=== PATIENT | female | born 1940 | race Caucasian/White ===

== ENCOUNTER → 2017-05-25 | Outpatient (CLI) | payer MEDICARE, OTHER ==
[~2017-05-25] MED LIST: CALC600T10 PO; DEXA4TAB PO; LEVE500 PO; PROT40TA PO; VITA2000 PO
--- NOTE | 2017-05-25 12:38 | RADRPT ---
EXAM DATE/TIME: 05/25/2017 12:24 [facility] COMPARISON: No previous studies available for comparison. INDICATIONS : Evaluate for pneumonia, pneumothorax, or communicable disease. Pre op for frontal lobe mass removal. MEDICAL HISTORY : Hypothyroidism. Osteoarthritis. SURGICAL HISTORY : Tonsillectomy. Appendectomy. Cholecystectomy. Hysterectomy. ENCOUNTER: Initial ACUITY: 1 day PAIN SCORE: 0/10 LOCATION: chest FINDINGS: PA and lateral views of the chest demonstrate the lungs to be symmetrically aerated without evidence of mass, infiltrate or effusion. The cardiomediastinal contours are unremarkable. Osseous structure s are intact. CONCLUSION: No acute disease. Jagdish Castillo MD on May 25, 2017 at 12:34 Board Certified Radiologist. This report was verified electronically.
[2017-05-25 13:03] LABS: BASOPHIL # 0.1 TH/MM3 (0-0.2); BASOPHIL % 0.7 % (0.0-2.0); EOSINOPHIL # 0.1 TH/MM3 (0-0.4); EOSINOPHIL % 1.6 % (0.0-4.0); HEMATOCRIT 42.7 % (35.0-46.0); HEMO FLAGS DIFF FINAL; LYMPH % 44.3 % (9.0-44.0); LYMPHOCYTE # 3.8 TH/MM3 (1.0-4.8); MEAN CELL VOLUME 86.2 FL (80.0-100.0); MEAN CORPUSCULAR HGB CONC 33.6 % (32.0-36.0); MONO % 6.8 % (0.0-8.0); NEUT % 46.6 % (16.0-70.0); PLATELET COUNT 194 TH/MM3 (150-450); RED BLOOD COUNT 4.95 MIL/MM3 (4.00-5.30); RED CELL DISTRIBUTION WIDTH 13.5 % (11.6-17.2); WHITE BLOOD COUNT 8.5 TH/MM3 (4.0-11.0)
[2017-05-25 13:10] LABS: BACTERIA, URINE OCC /hpf; BLOOD, URINE NEG (NEG); COMMENT (UR) CULT NOT INDICATED; CULTURE IF INDICATED CULT NOT INDICATED; GLUCOSE,URINE NEG (NEG); KETONE, URINE NEG (NEG); NITRITE,URINE NEG (NEG); PH, URINE 7.5 (5.0-8.5); SQUAMOUS EPITHELIAL CELL URINE <1 /hpf (0-5); URINE COLOR YELLOW (YELLW/STRAW)
[2017-05-25 13:15] LABS: APTT (PATIENT) 25.4 SEC (24.3-30.1); INTERNATIONAL NORMALIZED RATIO 0.9 RATIO; PROTHROMBIN TIME - PATIENT 10.2 SEC (9.8-11.6)
[2017-05-25 13:30] LABS: ANION GAP 7 MEQ/L (5-15); AST (GOT) 13 U/L (15-37); BICARBONATE 31.4 MEQ/L (21.0-32.0); BLOOD UREA NITROGEN 12 MG/DL (7-18); CHLORIDE 102 MEQ/L (98-107); GLOMERULAR FILTRATION RATE 84 ML/MIN (>89); GLUCOSE,FASTING 93 MG/DL (74-99); SODIUM (NA) 140 MEQ/L (136-145)
[2017-05-25 13:31] LABS: ALT (GPT) 16 U/L (10-53)
[2017-05-25 13:33] LABS: ALKALINE PHOSPHATASE 53 U/L (45-117); TOTAL BILIRUBIN ADULT 0.9 MG/DL (0.2-1.0)
== END ==
LOC: CPRE 11:02
PROVIDERS: ATTEND Neurological Surgery
DX: Z01.810 Encounter for preprocedural cardiovascular examination (principal); Z01.812 Encounter for preprocedural laboratory examination; Z01.818 Encounter for other preprocedural examination; D49.6 Neoplasm of unspecified behavior of brain; Z79.01 Long term (current) use of anticoagulants
CPT/HCPCS: 36415; 71020; 80053; 81001; 85025; 85610; 85730

== ENCOUNTER 2017-06-04 05:28 | Inpatient (IN) | payer MEDICARE, OTHER ==
[~2017-06-04] VITALS: Ht 167.6 cm; Wt 74.1 kg
[2017-06-04] MEDS ORDERED: CHLORHEXIDINE GLUCONATE 2 % 1 PACK (2 CLOTHS) TOPICAL PRN (06:15)
[2017-06-04] MEDS ORDERED: VANCOMYCIN HCL 1000 MG ON-CALL/NS 250 ML IV SCH ×2 (06:15)
[2017-06-04] MEDS ORDERED: METOPROLOL TARTRATE 25 MG TAB PO PRN (06:15)
[2017-06-04] MEDS ORDERED: POVIDONE IODINE 5% (ANTISEPSIS KIT) 4 APPLICATIONS EACH NARE PRN (06:15)
[2017-06-04] MEDS ORDERED: INSULIN HUMAN REGULAR 1,000 UNITS/10 ML VIAL SQ PRN (06:15)
[2017-06-04] MEDS ORDERED: LACTATED RINGER'S 1000 ML IV PRN (06:15)
[2017-06-04] MEDS ORDERED: SODIUM CHLOR 0.9% 1000 ML INJ 1,000 ML IV SCH (06:15)
[2017-06-04] MEDS ORDERED: SODIUM CHLORID 0.9% 500 ML IV PRN (06:15)
[2017-06-04] MEDS ORDERED: THROMBIN (TOPICAL) 5,000 UNIT VIAL ONE (06:59)
[2017-06-04] MEDS ORDERED: GELFOAM SIZE 100 ONE (06:59)
[2017-06-04] MEDS ORDERED: BUPIVACAINE/EPINEPHRINE 0.5% 50 ML VIAL ONE (06:59)
[2017-06-04] MEDS ORDERED: GENTAMICIN SULFATE 80 MG/2 ML VIAL ONE ×2 (07:00→08:33)
[2017-06-04] MEDS ORDERED: MANNITOL INJ 0 ML ONE (07:00)
[2017-06-04] MEDS ORDERED: levETIRAcetam 500 MG/5 ML VIAL IV ONE (07:06)
[2017-06-04] MEDS ORDERED: MANNITOL INJ 50 ML ONE (07:06)
[2017-06-04] MEDS ORDERED: PROPOFOL 200 MG/20 ML AMP ONE ×2 (08:55→10:12)
[2017-06-04] MEDS ORDERED: DEXAMETHASONE SOD PHOS 4 MG/ML VIAL ONE (09:35)
[2017-06-04] MEDS ORDERED: SUGAMMADEX SODIUM 200 MG/2 ML VIAL IV PUSH ONE ×2 (10:06)
[2017-06-04] MEDS ORDERED: CODEINE SULFATE 30 MG TAB PO PRN (10:30)
[2017-06-04] MEDS ORDERED: MAGNESIUM HYDROXIDE SUSP 30 ML CUP PO PRN (10:30)
[2017-06-04] MEDS ORDERED: MENTHOL LOZENGE BUCCAL PRN (10:30)
[2017-06-04] MEDS ORDERED: LABETALOL HCL 100 MG/20 ML VIAL IV PUSH PRN (10:30)
[2017-06-04] MEDS ORDERED: POTASSIUM CHLOR 20 MEQ PREMIX 100 ML IV PRN (10:30)
[2017-06-04] MEDS ORDERED: CALCIUM GLUCONATE INJ 1 GM in SODIUM CHLORIDE 0.9% INJ 100 ML IV PRN (10:30)
[2017-06-04] MEDS ORDERED: niCARdipine INJ 25 MG in SODIUM CHLOR 0.9% 250 ML INJ 240 ML IV PRN (10:30)
[2017-06-04] MEDS ORDERED: RESP: ALBUTEROL 2.5 MG/3 ML NEB (PRN) NEB (10:30)
[2017-06-04] MEDS ORDERED: LORazepam 2 MG/ML VIAL IV PUSH PRN (10:30)
[2017-06-04] MEDS ORDERED: ONDANSETRON HCL 4 MG/2 ML VIAL IV PUSH PRN (10:30)
[2017-06-04] MEDS ORDERED: ALUMINUM/MAGNESIUM/SIMETH 30 ML CUP PO PRN (10:30)
[2017-06-04] MEDS ORDERED: MAGNESIUM SULFATE INJ 2 GM in SODIUM CHLORIDE 0.9% INJ 100 ML IV PRN (10:30)
[2017-06-04] MEDS ORDERED: MORPHINE SULFATE 4 MG/ML INJ IV PUSH PRN (10:30)
[2017-06-04] MEDS ORDERED: METOCLOPRAMIDE HCL 10 MG/2 ML VIAL IVS PRN (10:30)
[2017-06-04] MEDS ORDERED: SODIUM CHLORIDE 0.9% FLUSH 10 ML FLUSH IV FLUSH PRN (10:30)
[2017-06-04] MEDS ORDERED: CODEINE SULFATE 15 MG TAB PO PRN (10:30)
[2017-06-04] MEDS ORDERED: cloNIDine HCL 0.1 MG TAB PO PRN (10:30)
--- NOTE | 2017-06-04 10:36 | PD.OP ---
Lo Denis, Operative Report Date of Surgery: Jun 04, 2017 Preoperative Diagnosis: Right frontotemporal parietal lobe mass Postoperative Diagnosis: High-grade glioma Procedure: Right frontotemporal parietal craniotomy for neoplasm resection; BrainLab stereotactic navigation; microsurgical technique Anesthesia: Gen. endotracheal by Taco Cardenas Surgeon: Nabeel Guzman M.D. Manager Drilling(s): Sandy Caraballo Operation and Findings: Following initiation of general endotracheal anesthesia the patient had invasive lines and Adler catheter in place along with sequential compression device. A gram of vancomycin and Keppra 500 mg as well as 10 mg Decadron was administered intravenously and she was positioned supine with the right shoulder elevated on a roll and head turned to the left side and secured in the [place] 3 pin headrest. The BrainLab navigation system was then registered with external landmarks and good accuracy confirmed. A right linear frontoparietal temporal incision area made after head shaved and prepped with ChloraPrep and sterilely draped in the usual sterile fashion. Incision was then made after infiltrating the scalp was 0.5% Marcaine with epinephrine solution a skin incision made and Gaye clips were used at the scalp edges for hemostasis and the flap retracted with Weitlaner retractors. Right temporalis muscle and fascia was also incised and detached from the temporal bone and retracted. With an automated radiation protection specialist temporal bur hole made and then with the craniotome the bone flap was elevated. The dura opened in a cruciate format and bone holes placed in the craniotomy edges with 4-0 Nurolon dural tacking stitches for hemostasis. Further dissection was undertaken using microtechnique with microscope medication. A corticectomy about 2 cm was in the suprerior temporal lobe identified at the anterior border of the mass which was localized with the navigation system also. Less than 2 cm from the cortical surface on indistinct border mass was evident and resection of this mass was undertaken using microtechnique microscope magnification along with the BrainLab navigation guidance. There was no distinct border between the brain and the mass and was very infiltrative in nature. Initial debulking undertaken in the middle where their was grayish in coloration and necrotic as well as cystic components and subsequent circumferential dissection although more medially because of this mass being on the internal capsule a very aggressive gross total resection could not be achieved but close to 80-90% of the mass was resected. Fresh frozen specimen sent was consistent with glioma and rest of the specimens were sent for permanent pathology sections although most of the mass was suctioned out. Bipolar cautery used for hemostasis in the resection bed which was then lined with Surgicel and no bleeding was encountered at this point. Cavity was filled with saline solution and the dura approximately using 4 Nurolon sutures with a central dural tacking stitch. Bone flap approximated using TransMedics mini plates and bur hole covers. The area was then copiously irrigated. The temporalis fascia was approximated and using 2-0 Vicryl sutures and the galea reapproximated using 3-0 Vicryl interrupted sutures and final scalp closure was with lili. The Jones head was then removed and a sterile pressing dressing applied. There were no intraoperative complications and all sponge and needle count was correct at the end of the procedure. Estimated blood loss about 50 cc. Patient was extubated and taken to the recovery room. Nabeel Guzman MD Jun 04, 2017 10:36
[2017-06-04] MEDS ORDERED: DO NOT ADM ANY ANTICOAGULANT DRUGS PRN (10:59)
[2017-06-04] MEDS ORDERED: ceFAZolin INJ 1,000 MG VIAL ONE (11:35)
[2017-06-04] MEDS ORDERED: SODIUM CHLORIDE 0.9% INJ 100 ML ONE (11:35)
[2017-06-04] MEDS: NS + KCL 20 MEQ INJ 1,000 ML IV SCH ×2 (11:35→21:34)
[2017-06-04 11:52] LABS: HEMATOCRIT 40.4 % (35.0-46.0); MEAN CELL VOLUME 85.3 FL (80.0-100.0); MEAN CORPUSCULAR HEMOGLOBIN 29.1 PG (27.0-34.0); MEAN CORPUSCULAR HGB CONC 34.1 % (32.0-36.0); PLATELET COUNT 160 TH/MM3 (150-450); RED BLOOD COUNT 4.74 MIL/MM3 (4.00-5.30); RED CELL DISTRIBUTION WIDTH 13.7 % (11.6-17.2); REVIEW FLAG FINAL; WHITE BLOOD COUNT 8.7 TH/MM3 (4.0-11.0)
[2017-06-04] MEDS ORDERED: GLYCOPYRROLATE 0.2 MG/ML VIAL ONE (12:06)
--- NOTE | 2017-06-04 12:12 | EKG ---
Date Performed: 06/04/2017 Time Performed: 06:45:03 PTAGE: 76 years EKG: SINUS BRADYCARDIA MODERATE ST DEPRESSION ABNORMAL ECG NO PREVIOUS TRACING DOCTOR: Porter Pedro Interpretating Date/Time 06/04/2017 12:11:33
[2017-06-04 12:19] LABS: BICARBONATE 22.4 MEQ/L (21.0-32.0); MAGNESIUM 2.2 MG/DL (1.5-2.5); POTASSIUM 3.3 MEQ/L (3.5-5.1)
[2017-06-04 12:45] VITALS: BP 144/68; PULSE 81; RESP 22; TEMP 97.8; O2SAT 100
[2017-06-04 14:00] VITALS: PULSE 77
[2017-06-04 16:00] VITALS: BP 130/58; PULSE 65; RESP 14; TEMP 98.2; O2SAT 99
[2017-06-04] MEDS: DEXAMETHASONE SOD PHOS 4 MG/ML VIAL IV PUSH SCH ×2 (17:00→21:33)
[2017-06-04 18:00] VITALS: PULSE 58
[2017-06-04 20:00] VITALS: BP 142/64; PULSE 54; PULSE 57; RESP 18; TEMP 98; O2SAT 94
[2017-06-04] MEDS: SODIUM CHLORIDE 0.9% FLUSH 10 ML FLUSH IV FLUSH SCH (21:00)
[2017-06-04] MEDS ORDERED: ZOLPIDEM TARTRATE 5 MG TAB PO PRN (21:00)
[2017-06-04] MEDS: levETIRAcetam 500 MG TAB PO SCH (21:32)
[2017-06-04] MEDS: DOCUSATE SODIUM 100 MG CAP PO SCH (21:32)
[2017-06-04] MEDS: CALCIUM/VITAMIN D 250 MG/125 U TAB PO SCH (21:32)
[2017-06-04 22:00] VITALS: PULSE 59
[2017-06-05] VITALS (11 sets, daily range): BP systolic 124–145; BP diastolic 60–67; PULSE 50–61; RESP 19–24; TEMP 98.2–99.1; O2SAT 93–99
[2017-06-05] MEDS: DEXAMETHASONE SOD PHOS 4 MG/ML VIAL IV PUSH SCH ×4 (04:33→20:57)
[2017-06-05 05:03] LABS: BICARBONATE 24.7 MEQ/L (21.0-32.0); POTASSIUM 4.1 MEQ/L (3.5-5.1)
[2017-06-05] MEDS: CALCIUM/VITAMIN D 250 MG/125 U TAB PO SCH ×2 (08:57→20:46)
[2017-06-05] MEDS: CHOLECALCIFEROL (VIT D3) 1000 UNIT TAB PO SCH (08:57)
[2017-06-05] MEDS: DOCUSATE SODIUM 100 MG CAP PO SCH ×2 (08:57→20:46)
[2017-06-05] MEDS: levETIRAcetam 500 MG TAB PO SCH ×2 (08:57→20:46)
[2017-06-05] MEDS: PANTOPRAZOLE SOD 40 MG DELAYED RELEASE TAB PO SCH (08:57)
[2017-06-05] MEDS: SODIUM CHLORIDE 0.9% FLUSH 10 ML FLUSH IV FLUSH SCH ×2 (08:58→20:47)
--- NOTE | 2017-06-05 09:19 | HHI.NSPN ---
History Chief Complaint: mild TMJ discomfort s/p right crani for mass resection. Interval History 06/05/17: Pt awake and alert. Denies headache, has mild right TMJ discomfort. No n/v. No weakness. Review of Systems General: Negative for: fever, chills, insomnia Respiratory: Negative for: shortness of breath, cough, sputum Cardiovascular: Negative for: chest pain Gastrointestinal: Negative for: nausea, vomitting, diarrhea, constipation Exam Results Vital Signs Date Time Temp Pulse Resp B/P (MAP) Pulse Ox O2 Delivery O2 Flow Rate FiO2 06/05/17 08:00 99.1 52 19 145/67 (93) 94 06/05/17 07:00 Room Air 06/04/17 12:45 2.00 Intake and Output 06/05/17 06/05/17 06/06/17 08:00 16:00 00:00 Intake Total 500 ml Output Total 2000 ml Balance -1500 ml Physical Examination Resp: CTA bilaterally Heart: NSR no murmurs Abd: Soft positive bs Skin: No cyanosis or erythema. Incision clean and dry healing well. Muscle: Moves all 4 extremities with good strength. Neuro: Pt awake and alert. Follows commands well. Speech clear and appropriate. Pupils 3mm bilaterally. Face symmetric. Lab, Micro, Other Results Laboratory Tests Test 06/04/17 11:10 06/05/17 04:20 White Blood Count 8.7 TH/MM3 Red Blood Count 4.74 MIL/MM3 Hemoglobin 13.8 GM/DL Hematocrit 40.4 % Mean Corpuscular Volume 85.3 FL Mean Corpuscular Hemoglobin 29.1 PG Mean Corpuscular Hemoglobin Concent 34.1 % Red Cell Distribution Width 13.7 % Platelet Count 160 TH/MM3 Mean Platelet Volume 9.6 FL Blood Urea Nitrogen 20 MG/DL 16 MG/DL Creatinine 0.49 MG/DL 0.61 MG/DL Random Glucose 123 MG/DL 131 MG/DL Calcium Level 7.8 MG/DL 8.2 MG/DL Magnesium Level 2.2 MG/DL Sodium Level 137 MEQ/L 137 MEQ/L Potassium Level 3.3 MEQ/L 4.1 MEQ/L Chloride Level 105 MEQ/L 105 MEQ/L Carbon Dioxide Level 22.4 MEQ/L 24.7 MEQ/L Anion Gap 10 MEQ/L 7 MEQ/L Estimat Glomerular Filtration Rate 122 ML/MIN 95 ML/MIN Medical Decision Making Impression and Plan A: 76 y/o FM s/p Right frontotemporal parietal craniotomy for neoplasm resection; [facility] Imaging stereotactic navigation; microsurgical technique on . P: Continue to monitor neuro exam PT advance activity. Anurag Montemayor Jun 05, 2017 9:19 am
[2017-06-05] MEDS: NS + KCL 20 MEQ INJ 1,000 ML IV SCH (09:48)
[2017-06-05] MEDS ORDERED: GADODIAMIDE PF 287 MG/ML 5 ML VIAL (for RAD MRI) IV PUSH ONE (10:47)
--- NOTE | 2017-06-05 11:36 | RADRPT ---
EXAM DATE/TIME: 06/05/2017 10:31 [facility] COMPARISON: No previous studies available for comparison. INDICATIONS : Mass. Post resection for neoplasm. CONTRAST: 14 cc Omniscan (gadodiamide) IV MEDICAL HISTORY : Spinal stenosis. SURGICAL HISTORY : Tonsillectomy. Craniotomy. Appendectomy. ENCOUNTER: Initial ACUITY: 2 day PAIN SCORE: 0/10 LOCATION: HEAD TECHNIQUE: Multiplanar, multisequence MRI of the brain was performed both prior to and following the administrat ion of paramagnetic contrast. FINDINGS: No prior neuroimaging studies are available. Right parietal craniotomy with a rim-enhancing lesion i n the mid convexity right temporal parietal lobe measuring 3.4 x 2.7 cm. There is an internal area o f enhancing nodularity along the anterolateral portion which measures 12 mm in size. There is absent signal along the fracture extending from the lateral margin of the mass to the dura. There is 4 mm midline shift towards the left. Moderate surrounding edema in the right temporal and parietal white matter. There is a small area of restricted diffusion about the posterior margin of the edema which measures 1.9 x 1.0 cm, characteristic of a focal infarct posterior to the surgical bed. No evidence of acute blood products. The left hemisphere is grossly intact. Posterior fossa structures are grossly intact. No gross abno rmality of the paranasal sinuses or orbits. The pituitary gland is normal in size. CONCLUSION: Post surgical changes in the right temporal parietal region. Residual peripheral ring enhancing mass with enhancing internal nodule. There is 4 mm midline shift towards the left. Los Navarro MD on June 05, 2017 at 11:30 Board Certified Radiologist. This report was verified electronically.
[2017-06-06] VITALS (9 sets, daily range): BP systolic 109–149; BP diastolic 57–90; PULSE 49–61; RESP 15–20; TEMP 97.7–98.3; O2SAT 93–98
[2017-06-06] MEDS: DEXAMETHASONE SOD PHOS 4 MG/ML VIAL IV PUSH SCH ×4 (03:03→23:04)
[2017-06-06] MEDS: levETIRAcetam 500 MG TAB PO SCH ×2 (08:56→23:04)
[2017-06-06] MEDS: CALCIUM/VITAMIN D 250 MG/125 U TAB PO SCH ×2 (08:57→23:04)
[2017-06-06] MEDS: PANTOPRAZOLE SOD 40 MG DELAYED RELEASE TAB PO SCH (08:57)
[2017-06-06] MEDS: CHOLECALCIFEROL (VIT D3) 1000 UNIT TAB PO SCH (08:57)
[2017-06-06] MEDS: SODIUM CHLORIDE 0.9% FLUSH 10 ML FLUSH IV FLUSH SCH ×2 (08:57→23:05)
[2017-06-06] MEDS: DOCUSATE SODIUM 100 MG CAP PO SCH ×2 (08:57→23:03)
--- NOTE | 2017-06-06 09:13 | HHI.NSPN ---
(Anurag Montemayor) History Chief Complaint: mild TMJ discomfort s/p right crani for mass resection. (Anurag Montemayor) Interval History 06/05/17: Pt awake and alert. Denies headache, has mild right TMJ discomfort. No n/v. No weakness. 06/06/17: Pt awake and alert. Denies headache. No n/v. Follows commands well. Speech clear and appropriate. (Anurag Montemayor) Review of Systems General: Negative for: fever, chills, insomnia Respiratory: Negative for: shortness of breath, cough, sputum Cardiovascular: Negative for: chest pain Gastrointestinal: Negative for: nausea, vomitting, diarrhea, constipation ( Anurag Montemayor) Exam Results Vital Signs Date Time Temp Pulse Resp B/P (MAP) Pulse Ox O2 Delivery O2 Flow Rate FiO2 06/06/17 06:00 55 06/06/17 04:00 98.1 17 142/67 (92) 93 06/05/17 19:00 Room Air 06/04/17 12:45 2.00 Intake and Output 06/06/17 06/06/17 06/07/17 08:00 16:00 00:00 Intake Total 400 ml Output Total 1500 ml Balance -1100 ml (Anurag Montemayor) Physical Examination Resp: CTA bilaterally Heart: NSR no murmurs Abd: Soft positive bs Skin: No cyanosis or erythema. Incision clean and dry healing well. Muscle: Moves all 4 extremities with good strength. Neuro: Pt awake and alert. Follows commands well. Speech clear and appropriate. Pupils 3mm bilaterally. Face symmetric. (Anurag Montemayor) Lab, Micro, Other Results Last Impressions Brain MRI 06/05/17 0600 Signed Impressions: Service Date/Time: Monday, June 05, 2017 10:31 - CONCLUSION: Post surgical changes in the right temporal parietal region. Residual peripheral ring enhancing mass with enhancing internal nodule. There is 4 mm midline shift towards the left. Los Navarro MD (Anurag Montemayor) Medical Decision Making Impression and Plan A: 76 y/o FM s/p Right frontotemporal parietal craniotomy for neoplasm resection; BrainLab stereotactic navigation; microsurgical technique on . Final Pathology reveals GBM. P: Continue to monitor neuro exam PT advance activity. Transfer to 5N. Consult radiation and medical oncology. Pts was not in the room this morning and therefore a discussion about the pathology was not done yet since I feel he should be present. (Anurag Montemayor) Attending Statement The exam, history, and the medical decision-making described in the above note were completed with the assistance of the mid-level provider. I reviewed and agree with the findings presented. I attest that I had a [id number] encounter with the patient on the same day, and personally performed and documented my assessment and findings in the medical record. She is doing very well from a clinical standpoint and in good spirits despite being told that she has a glioblastoma multiforme. Postoperative MRI scan with resected the majority of the cavity and residual rim enhancement. We'll consult the radiation and medical oncology for further treatment. (Nabeel Guzman MD) Anurag Montemayor Jun 06, 2017 09:13 Nabeel Guzman MD Jun 06, 2017 18:22
--- NOTE | 2017-06-06 15:40 | OTSOAPIP ---
TIME SESSION COMPLETED: PM TREATMENT TIME: 0 MINS. CHART REVIEWED. ATTEMPTED TO SEE FOR OT EVALUATION, HOWEVER IN PROCESS OF TRANSFERRING TO ANOTHER FLOOR. WILL FOLLOW. Therapist: SARAH SERVIN OT/[place] Signature on file
[2017-06-07 00:27] VITALS: BP 144/66; PULSE 51; RESP 17; TEMP 98; O2SAT 95
[2017-06-07] MEDS: DEXAMETHASONE SOD PHOS 4 MG/ML VIAL IV PUSH SCH ×2 (03:22→13:39)
[2017-06-07 04:52] VITALS: BP 145/65; PULSE 52; RESP 17; TEMP 98; O2SAT 96
--- NOTE | 2017-06-07 07:04 | MB ---
cc: ANDREAS GUZMAN M.D. DATE OF CONSULTATION 06/06/[address] Guzman REASON FOR CONSULTATION Oncology consulted to render opinion regarding patient with glioblastoma. HISTORY OF PRESENT ILLNESS The patient is a very pleasant 76-year-old female with no significant past medical history who first experienced left facial weakness about two months ago. She stated that one day she had significant rhinorrhea and then she noted a left facial weakness. She went to see her primary physician and an MRI scan done was reportedly unremarkable. She has not had recurring symptoms, but recently had another repeat scan which showed a right brain mass. She was referred to see Dr. Guzman. She was admitted two days ago for surgical resection. She underwent a right frontal temporoparietal craniotomy. She was noted to have an infiltrative mass which was grossly resected. Pathology showed glioblastoma multiforme grade 4. The patient denies any fever, chills, or weight loss. She denies any headache. She denies any visual changes. Denies any change in her speech. Denies any chest pains, shortness of breath or cough. Denies any nausea, vomiting, diarrhea or abdominal pain. PAST MEDICAL HISTORY 1. Allergies, receiving periodic allergy shot. 2. Thyroid nodule PAST SURGICAL HISTORY 1. Tonsillectomy 2. Total hysterectomy 3. Appendectomy 4. Cholecystectomy FAMILY HISTORY One son and one daughter both healthy. She lives with her . SOCIAL HISTORY Denied tobacco or alcohol use. ALLERGIES Recorded in the chart. CURRENT MEDICATIONS 1. Vitamin D3 2. Protonix 3. Keppra 4. Calcium 5. Colace REVIEW OF SYSTEMS CONSTITUTIONAL: Negative. EYES: Negative. ENT: Negative. CARDIOVASCULAR: Denies chest pressure or palpitations/ RESPIRATORY: Denies shortness of breath or cough. GI: Negative. : Negative. MUSCULOSKELETAL: Negative. HEMATOLOGY: Negative. ENDOCRINE: Negative. NEUROLOGIC: As above. PSYCHIATRIC: Negative. DERMATOLOGY: Negative. PHYSICAL EXAMINATION VITALS: Temperature 98.3, blood pressure 130/65, O2 saturation 98%. GENERAL: She is alert and oriented x3 in no acute distress. HEENT: Right sided craniotomy scar noted. No bleeding. Pupils equal round and reactive to light. Oropharynx, dry mucosa. NECK: No thyromegaly. No palpable masses. LYMPHATICS: No palpable cervical, supraclavicular, axillary or inguinal lymph nodes. CARDIOVASCULAR: Regular S1-S2 normal. LUNGS: Clear to auscultation bilaterally. No wheezing or rhonchi. ABDOMEN: Soft and nontender. I could not palpate the liver or spleen. EXTREMITIES: No cyanosis, clubbing or edema. SKIN: No rash or petechiae. NEUROLOGIC: Exam nonfocal. LABORATORY DATA Reviewed ASSESSMENT 1. Glioblastoma multiforme grade 4. She experienced left facial weakness and found to have a brain mass subsequently. She underwent craniotomy on May 15. There was an infiltrative mass noted, about 80-90% gross resection was achieved. Postoperative MRI showed residual peripheral ringed enhancing mass with enhancing internal nodule. There was a 4 mm midline shift towards the left noted. Pathology showed a glioblastoma multiforme. Discussed pathology with the patient. She has a good performance status. I am going to have pathology do a MGMT methylation study. She is going to need radiation with concurrent Temodar. Dr. Waddell has been consulted. 2. Thyroid nodule followed by endocrinology. 3. History of multiple allergies. PLAN 1. Discussion with the patient as above. 2. Await radiation oncology evaluation. 3. The patient is going to need consolidation radiation with concurrent Temodar. 4. We will have pathology do a MGMT methylation study. Thank you Dr. Guzman for asking us see this patient. MD LARRY Wyatt/FILIBERTO /7:10 PM /6:52 AM [facility]
[2017-06-07 07:36] VITALS: BP 146/69; PULSE 51; RESP 20; TEMP 98.4; O2SAT 95
[2017-06-07] MEDS: SODIUM CHLORIDE 0.9% FLUSH 10 ML FLUSH IV FLUSH SCH (09:00)
[2017-06-07] MEDS: DOCUSATE SODIUM 100 MG CAP PO SCH (09:48)
[2017-06-07] MEDS: levETIRAcetam 500 MG TAB PO SCH (09:49)
[2017-06-07] MEDS: PANTOPRAZOLE SOD 40 MG DELAYED RELEASE TAB PO SCH (09:49)
[2017-06-07] MEDS: CHOLECALCIFEROL (VIT D3) 1000 UNIT TAB PO SCH (09:49)
[2017-06-07] MEDS: CALCIUM/VITAMIN D 250 MG/125 U TAB PO SCH (09:49)
--- NOTE | 2017-06-07 10:23 | HHI.NSPN ---
(Anurag Montemayor) History Chief Complaint: mild TMJ discomfort s/p right crani for mass resection. (Anurag Montemayor) Interval History 06/05/17: Pt awake and alert. Denies headache, has mild right TMJ discomfort. No n/v. No weakness. 06/06/17: Pt awake and alert. Denies headache. No n/v. Follows commands well. Speech clear and appropriate. 06/07/17: pt awake and alert. Denies headache. States TMJ area pain resolved. No n/v. (Anurag Montemayor) Review of Systems General: Negative for: fever, chills, insomnia Respiratory: Negative for: shortness of breath, cough, sputum Cardiovascular: Negative for: chest pain Gastrointestinal: Negative for: nausea, vomitting, diarrhea, constipation ( Anurag Montemayor) Exam Results Vital Signs Date Time Temp Pulse Resp B/P (MAP) Pulse Ox O2 Delivery O2 Flow Rate FiO2 06/07/17 07:36 98.4 51 20 146/69 (94) 95 06/06/17 07:00 Room Air 06/04/17 12:45 2.00 Intake and Output 06/07/17 06/07/17 06/08/17 08:00 16:00 00:00 Intake Total 240 ml Balance 240 ml (Anurag Montemayor) Physical Examination Resp: CTA bilaterally Heart: NSR no murmurs Abd: Soft positive bs Skin: No cyanosis or erythema. Incision clean and dry healing well. Muscle: Moves all 4 extremities with good strength. Neuro: Pt awake and alert. Follows commands well. Speech clear and appropriate. Pupils 3mm bilaterally. Face symmetric. (Anurag Montemayor) Lab, Micro, Other Results Last Impressions Brain MRI 06/05/17 0600 Signed Impressions: Service Date/Time: Monday, June 05, 2017 10:31 - CONCLUSION: Post surgical changes in the right temporal parietal region. Residual peripheral ring enhancing mass with enhancing internal nodule. There is 4 mm midline shift towards the left. Los Navarro MD (Anurag Montemayor) Medical Decision Making Impression and Plan A: 76 y/o FM s/p Right frontotemporal parietal craniotomy for neoplasm resection; BrainLab stereotactic navigation; microsurgical technique on . Final Pathology reveals GBM. P: Continue to monitor neuro exam PT advance activity. D/C planning (Anurag Montemayor) Attending Statement The exam, history, and the medical decision-making described in the above note were completed with the assistance of the mid-level provider. I reviewed and agree with the findings presented. I attest that I had a [id number] encounter with the patient on the same day, and personally performed and documented my assessment and findings in the medical record. Discussed with patient and her and she is requesting discharge home with home therapy. Scheduled for follow-up next week with me for staple removal as well as radiation and medical oncology. (Nabeel Guzman MD) Anurag Montemayor Jun 07, 2017 10:23 Nabeel Guzman MD Jun 07, 2017 15:22
[2017-06-07 11:44] VITALS: BP 114/56; PULSE 57; RESP 20; TEMP 97.7; O2SAT 96
[2017-06-07] MEDS ORDERED: CODE15 PO (12:15)
--- NOTE | 2017-06-07 12:42 | HHI.FF ---
Face to Face Verification Diagnosis: (1) Glioblastoma multiforme Physical Therapy Order: Evaluate and Treat, Improve ambulation, Strength and gait training Home Health Nursing Order: Wound care and dressing changes Nursing assessment with vital signs I have seen patient Alpa Newman on 06/07/17. My clinical findings support the need for the requested home health care services because: Deconditioned w/ increased weakness Impaired cognition/judgement High risk of falls I certify that my clinical findings support that this patient is homebound because: Unsteady gait/balance Unable to use public transportation Anurag Montemayor Jun 07, 2017 12:42 pm
[2017-06-07] MEDS ORDERED: BISACODYL 10 MG SUPP RECTAL ONE (13:45)
--- NOTE | 2017-06-07 16:54 | PD.ONC.PN ---
Subjective Subjective Remarks Late entry. Feeling well. No headache or visual changes. Objective Data Date Time Temp Pulse Resp B/P (MAP) Pulse Ox O2 Delivery O2 Flow Rate FiO2 06/07/17 11:44 97.7 57 20 114/56 (75) 96 06/07/17 07:36 98.4 51 20 146/69 (94) 95 06/07/17 04:52 98.0 52 17 145/65 (91) 96 06/07/17 00:27 98.0 51 17 144/66 (92) 95 06/06/17 20:12 98.3 53 17 146/66 (92) 95 06/07/17 06/07/17 06/07/17 07:00 15:00 23:00 Intake Total 240 ml Balance 240 ml Result Diagram: 06/04/17 1110 06/05/17 0420 Objective Remarks GENERAL: Well-nourished, well-developed patient. SKIN: Warm and dry. HEAD: Normocephalic. Craniotomy site no bleeding. EYES: No scleral icterus. No injection or drainage. NECK: Supple, trachea midline. No JVD or lymphadenopathy. LYMPHATIC: No adenopathy. CARDIOVASCULAR: Regular rate and rhythm without murmurs. RESPIRATORY: Breath sounds equal bilaterally. No accessory muscle use. GASTROINTESTINAL: Abdomen soft, non-tender, nondistended. EXTREMITIES: No cyanosis, or edema. MUSCULOSKELETAL: Adequate muscle tone. NEUROLOGICAL: No obvious focal deficit. Awake, alert, and oriented x3. PSYCHIATRIC: Appropriate mood and affect; insight and judgment normal. Assessment/Plan Assessment 1. Glioblastoma multiforme grade 4. She experienced left facial weakness and found to have a brain mass subsequently. She underwent craniotomy on May 15. There was an infiltrative mass noted, about 80-90% gross resection was achieved. Postoperative MRI showed residual peripheral ringed enhancing mass with enhancing internal nodule. There was a 4 mm midline shift towards the left noted. Pathology showed a glioblastoma multiforme. Discussed pathology with the patient. She has a good performance status. I am going to have pathology do a MGMT methylation study. She is going to need radiation with concurrent Temodar. Dr. Waddell has been consulted. Plan PLAN 1. Discussion with the patient as above. 2. Await radiation oncology evaluation. 3. The patient is going to need consolidation radiation with concurrent Temodar. 4. We will have pathology do a MGMT methylation study. 5. F/u oncology clinic after d/c. Osvaldo Frank MD Jun 07, 2017 16:54
--- NOTE | 2017-06-08 22:14 | RC ---
cc: KEVIN WADDELL ROHIT K. M.D. DODD, PAUL M. M.D. HOLE, SUSAN DO DATE OF SERVICE 06/07/17 Ms. Newman is a 76-year-old female I am asked to see by Dr. Guzman. A copy of this evaluation will be forwarded to Dr. Guzman to aid in the medical decision making process. PRIMARY CARE PHYSICIAN Dr. Lo Denis OTHER PHYSICIANS Dr. Tony Phipps HISTORY Ms. Newman is a 76-year-old female who presented from Dr. Denis's primary care office noted to have facial asymmetry. She underwent imaging at [facility] in [facility], noted to have a right frontoparietal mass consistent with the primary brain tumor. She did undergo maximal safe resection demonstrates glioblastoma multiforme, grade 4/4 high-grade glioma. She is recovering well. She is coherent, feeling good. She underwent postoperative MRI demonstrating postsurgical changes, small post-treatment or residual ___ noted. We discussed with her treatment considerations. We discussed definitive adjuvant treatment. We discussed radiation therapy, concurrent temozolomide. We could consider hypofractionated course, 15-day fraction due to her age. She does have good performance status. KPS essentially 90 or greater. Over 50%, approximately 20 to 25 minute face to face encounter involved treatment considerations. Will make an appointment to see her next week on an outpatient basis. We will also make the patient appointment to have her see Dr. Tony Phipps, medical oncologist, next week as well. Kevin Waddell MD Radiation Oncologist B[facility]/EO /2:13 PM /10:04 PM
== END 2017-06-07 15:48 | disposition home health service (06) | DRG 27 ==
LOC: HSDI 05:28 → N03B 12:36 → N05B 06-06 10:54
PROVIDERS: ADMIT Neurological Surgery; ATTEND Neurological Surgery
PROC: 8E09XBZ Computer Assisted Procedure of Head and Neck Region (ICD-10-PCS; 2017-06-04)
PROC: 00B70ZZ Excision of Cerebral Hemisphere, Open Approach (ICD-10-PCS; principal; 2017-06-04 08:30)
DX: C71.3 Malignant neoplasm of parietal lobe (principal); E04.1 Nontoxic single thyroid nodule; Z88.5 Allergy status to narcotic agent; Z91.012 Allergy to eggs
CPT/HCPCS: 70553; 80048; 83735; 85027; 86850; 86900; 86901; 86920; 88307; 88331; 93005; 94150; A9579; J0690; J1100; J1580; J1953; J2150; J3480; J7120

== ENCOUNTER 2017-11-06 18:12 | Inpatient (IN) | payer MEDICARE, OTHER ==
[~2017-11-06] VITALS: Ht 167.6 cm; Wt 76.5 kg
[~2017-11-06 18:12] MED LIST changes: +CODE15 PO; +PRAD150C PO
[2017-11-06 18:28] VITALS: BP 145/69; PULSE 90; RESP 16; O2SAT 95
[2017-11-06] MEDS ORDERED: BUME2TAB PO (18:39)
[2017-11-06] MEDS ORDERED: ONDA8TAB7 PO (18:39)
[2017-11-06] MEDS ORDERED: POTA-163 PO ×2 (18:39→20:12)
[2017-11-06] MEDS ORDERED: METH1CAP41 PO (18:39)
--- NOTE | 2017-11-06 19:36 | PD ---
HPI Chief Complaint: General Weakness Time Seen by Provider: 19:05 Travel History International Travel<30 days: No Contact w/Intl Traveler<30days: No Traveled to known affect area: No History of Present Illness HPI The patient is a 77 year old female who presents to the [facility] emergency department with a history of increased weakness that is progressed over the last 24 hours. The patient is currently on chemotherapy. She completed her second round of a double dose of chemotherapy by Dr. Bates for a glioblastoma on Sunday. Her reports that over the last week she has had a diminished appetite, however she has not had any vomiting or diarrhea. Reports that he has no home health or rehabilitation coming out to his house at this time. He reports that he manages his on his own. He reports that normally he is able to assist her to the bathroom, however over the last 24 hours she is unable to stand due to lower extremity weakness. She has not had any fevers, cough or congestion. She has not had any change in her urinary frequency or odor to her urine. He reports that she has been on a diuretic up until 2 days ago, however she decided to discontinue it as she did not like it. She denies having any chest pain, chest pressure, or shortness of breath. The patient is awake on my arrival to the room. She is slow to answer questions , however she is oriented to person, place, however not time. Her reports that she does have difficulty remembering the day of the week and the month as she has been sleeping frequently due to fatigue on the chemotherapy. The patient last moved her bowels earlier today. There has not been any blood in her stool or black or tarry stools. She is currently anticoagulated on Pradaxa related to left lower extremity DVT. She denies having any increased lower extremity edema. She denies having any calf pain or erythema. Otherwise on review of systems, the patient denies having any headache, neck pain, abdominal pain, or other new neurologic symptoms. According to her she has unfortunately fallen approximately 3-4 times over the last 8 days. He denies her requiring any injuries related to the falls, and she reports no pain related to the falls. [facility] Past Medical History Narrative Medical The patient's past medical history is significant for having a glioblastoma status post craniotomy with surgical resection of 90%, followed by [address] york and chemotherapy currently underway with Dr. Frank, left lower extremity DVT, hypothyroid disorder, osteoarthritis. Cancer: Yes Cardiovascular Problems: No Chemotherapy: Yes Diabetes: No Endocrine: No Genitourinary: No Hiatal Hernia: No Immune Disorder: No Musculoskeletal: Yes (OA) Neurologic: Yes (SPINAL STENOSIS, MASS RIGHT FRONTAL LOBE) Psychiatric: No Reproductive: No Respiratory: No Thyroid Disease: Yes (NO MEDS) ?: Not Past Surgical History Narrative Surgical The patient's past surgical history is significant for cataract surgery, tonsillectomy, appendectomy, cholecystectomy, hysterectomy, craniotomy for the last stoma resection, cyst removal from the right arm. Abdominal Surgery: Yes (CHOLECYSTECTOMY) AICD: No Body Medical Devices: DENTAL IMPLANTS Cardiac Surgery: No Ear Surgery: No Endocrine Surgery: No Eye Surgery: Yes (BILATERAL CATARACTS) Genitourinary Surgery: No Gynecologic Surgery: Yes (TOTAL HYSTERECTOMY) Hysterectomy: Yes Joint Replacement: No Oral Surgery: Yes (TONSILLECTOMY, DENTAL IMPLANTS) Pacemaker: No Thoracic Surgery: No (CYST REMOVAL RIGHT FOREARM) Social History Narrative Social History The patient has been 57 years and has 2 children. Alcohol Use: No Tobacco Use: No Substance Use: No Allergies-Medications (Allergen,Severity, Reaction): Coded Allergies: Beef Containing Products (Verified Allergy, Unknown, 11/06/17) Bisphosphonates (Verified Allergy, Unknown, hypertension, nausea, 11/06/17) Egg Derived (Verified Allergy, Unknown, 11/06/17) Inhaled Anesthetics (Halogen Based) (Verified Allergy, Unknown, rash, ) [place]-Hfy-Aih Reductase Inhibitor (Verified Allergy, Unknown, trembles/ weakness, 11/06/17) acetaminophen (Verified Allergy, Unknown, 11/06/17) albuterol (Verified Allergy, Unknown, burning esophagus, anxious, rash, sleeplessness, 11/06/17) alendronate sodium (Verified Allergy, Unknown, chest pain, heart attack symptoms, 11/06/17) almond (Verified Allergy, Unknown, 11/06/17) barley (Verified Allergy, Unknown, 11/06/17) black walnut (Verified Allergy, Unknown, 11/06/17) corn (Verified Allergy, Unknown, 11/06/17) denosumab (Verified Allergy, Unknown, lethargy, 11/06/17) egg yolk (Verified Allergy, Unknown, 11/06/17) esomeprazole (Verified Allergy, Unknown, weakness, 11/06/17) green pepper (Verified Allergy, Unknown, 11/06/17) isoniazid (Verified Allergy, Unknown, 11/06/17) milk (Verified Allergy, Unknown, 11/06/17) cow milk omeprazole (Verified Allergy, Unknown, weakness, 11/06/17) oxaprozin (Verified Allergy, Unknown, 11/06/17) oxycodone (Verified Allergy, Unknown, 11/06/17) pantoprazole (Verified Allergy, Unknown, muscle spasms, weakness, 11/06/17) pollen extracts (Verified Allergy, Unknown, 11/06/17) potato (Verified Allergy, Unknown, 11/06/17) protease (Verified Allergy, Unknown, 11/06/17) barley tolmetin (Verified Allergy, Unknown, rash, 11/06/17) wheat (Verified Allergy, Unknown, 11/06/17) caffeine (Verified Adverse Reaction, Unknown, inflamation, 11/06/17) chocolate flavor (Verified Adverse Reaction, Unknown, inflammation, 11/06/17 ) fish oil (Verified Adverse Reaction, Unknown, trembles/weakness, 11/06/17) Reported Meds & Prescriptions Reported Meds & Active Scripts Active Protonix (Pantoprazole Sodium) 40 Mg Tab 40 Mg PO DAILY Reported Temozolomide 140 Mg Cap 280 Mg PO [id number] Calcium 500 +D (Calcium Carbonate-Cholecalciferol) 500-400 Mg-Unit Tab 1 Tab PO TID Levetiracetam 500 Mg Tab 500 Mg PO BID Pradaxa (Dabigatran) 150 Mg Cap 150 Mg PO DAILY Potassium Chloride ER (Potassium Chloride) 20 Meq Tab 20 Meq PO BID Bumetanide 2 Mg Tab 2 Mg PO DAILY Ondansetron (Ondansetron HCl) 8 Mg Tab 8 Mg PO Q8HR PRN Vitamin D3 (Cholecalciferol) 2,000 Unit Cap 2,000 Units PO DAILY Review of Systems Except as stated in HPI: all other systems reviewed are Neg General / Constitutional: No: Fever Eyes: No: Visual changes HENT: No: Headaches, Congestion Cardiovascular: No: Chest Pain or Discomfort Respiratory: No: Cough, Shortness of Breath Gastrointestinal: Positive: Loss of Appetite, No: Nausea, Vomiting, Diarrhea, Abdominal Pain, Indigestion Genitourinary: No: Dysuria Musculoskeletal: No: Pain Skin: No Rash Neurologic: Positive: Weakness (Lower extremity weakness, generalized weakness) , Change in Mentation, No: Focal Abnormalities, Slurred Speech, Sensory Disturbance Psychiatric: No: Depression Endocrine: No: Polydipsia Hematologic/Lymphatic: No: Easy Bruising Physical Exam Narrative General: The patient is a well-developed well-nourished female in no acute distress. Head and Neck exam: Head is normocephalic atraumatic. Eyes: EOMI, pupils are equal round and reactive to light. Nose: Midline septum with pink mucous membranes Mouth: Dentition unremarkable. Moist mucus membranes. Posterior oropharynx is not erythematous. No tonsillar hypertrophy. Uvula midline. Airway patent. Neck: No palpable lymphadenopathy. No nuchal rigidity. No thyromegaly. Cardiovascular: Regular rate and rhythm without murmurs, gallops, or rubs. Lungs: Clear to auscultation bilaterally. No wheezes, rhonchi, or rales. Abdomen: Soft, without tenderness to palpation in all 4 quadrants of the abdomen. No guarding, rebound, or rigidity. Normal bowel sounds are audible. No tenderness on palpation of McBurney's point. Extremities: No clubbing, cyanosis, or edema. 2+ pulses in all 4 extremities. No calf tenderness on palpation. Back: No costovertebral angle tenderness to palpation. Neurologic Exam: Cranial nerves 2-12 were intact on exam. Strength is 5/5 in all 4 extremities. No sensory deficits noted. The patient is oriented to person, place, situation , however not time. The patient is able to converse intelligibly, however the patient is slow to answer questions. The patient's reports that she has been slow with her speech over the last week. Skin Exam: No rash noted. Intact skin that is warm and dry. Data Data Last Documented VS Vital Signs Date Time Temp Pulse Resp B/P (MAP) Pulse Ox O2 Delivery O2 Flow Rate FiO2 11/06/17 21:05 81 14 123/53 (76) 96 Room Air 11/06/17 19:54 98.4 Orders Orders Electrocardiogram (11/06/17 19:26) Complete Blood Count With Diff (11/06/17 19:26) Comprehensive Metabolic Panel (4/3/18 19:26) Troponin I (11/06/17:) Prothrombin Time / Inr (Pt) (11/06/17) Act Partial Throm Time (Ptt) (11/06/17) Lipase (11/06/17) Urinalysis - C+S If Indicated (11/06/17) Magnesium (Mg) (11/06/17) Ammonia (11/06/17) Thyroid Stimulating Hormone (11/06/17) Chest, Single Ap (11/06/17) Ct Brain W/O Iv Contrast(Rout) (11/06/17) Iv Access Insert/Monitor (11/06/17) Ecg Monitoring (11/06/17) Oximetry (11/06/17) Sodium Chlor 0.9% 1000 Ml Inj (Ns 1000 M (11/06/17 19:45) Potassium Chloride (Kcl) (11/06/17 21:00) Urine Culture (11/06/17 20:00) Admit Order (Ed Use Only) (11/06/17 21:56) Labs Laboratory Tests Test 11/06/17 19:44 11/06/17 20:00 White Blood Count 5.6 TH/MM3 Red Blood Count 4.53 MIL/MM3 Hemoglobin 13.6 GM/DL Hematocrit 39.3 % Mean Corpuscular Volume 86.8 FL Mean Corpuscular Hemoglobin 30.1 PG Mean Corpuscular Hemoglobin Concent 34.7 % Red Cell Distribution Width 16.1 % Platelet Count 183 TH/MM3 Mean Platelet Volume 8.1 FL Neutrophils (%) (Auto) 48.8 % Lymphocytes (%) (Auto) 29.5 % Monocytes (%) (Auto) 15.0 % Eosinophils (%) (Auto) 5.9 % Basophils (%) (Auto) 0.8 % Neutrophils # (Auto) 2.7 TH/MM3 Lymphocytes # (Auto) 1.7 TH/MM3 Monocytes # (Auto) 0.8 TH/MM3 Eosinophils # (Auto) 0.3 TH/MM3 Basophils # (Auto) 0.0 TH/MM3 CBC Comment DIFF FINAL Differential Comment Prothrombin Time 12.8 SEC Prothromb Time International Ratio 1.3 RATIO Activated Partial Thromboplast Time 36.9 SEC Blood Urea Nitrogen 15 MG/DL Creatinine 1.06 MG/DL Random Glucose 139 MG/DL Total Protein 6.2 GM/DL Albumin 3.5 GM/DL Calcium Level 9.0 MG/DL Magnesium Level 2.2 MG/DL Alkaline Phosphatase 55 U/L Aspartate Amino Transf (AST/SGOT) 38 U/L Alanine Aminotransferase (ALT/SGPT) 40 U/L Total Bilirubin 1.4 MG/DL Sodium Level 136 MEQ/L Potassium Level 3.4 MEQ/L Chloride Level 99 MEQ/L Carbon Dioxide Level 29.4 MEQ/L Anion Gap 8 MEQ/L Estimat Glomerular Filtration Rate 50 ML/MIN Ammonia LESS THAN 10 MCMOL/L Troponin I LESS THAN 0.02 NG/ML Lipase 190 U/L Thyroid Stimulating Hormone 3rd Gen 0.369 uIU/ML Urine Color YELLOW Urine Turbidity HAZY Urine pH 5.5 Urine Specific [place] 1.013 Urine Protein TRACE mg/dL Urine Glucose (UA) NEG mg/dL Urine Ketones 10 mg/dL Urine Occult Blood SMALL Urine Nitrite POS Urine Bilirubin NEG Urine Urobilinogen LESS THAN 2.0 MG/DL Urine Leukocyte Esterase LARGE Urine RBC 5 /hpf Urine WBC 70 /hpf Urine WBC Clumps MANY Urine Squamous Epithelial Cells 10 /hpf Urine Bacteria MANY /hpf Urine Mucus FEW /lpf Microscopic Urinalysis Comment CULTURE INDICATED MDM Medical Decision Making Medical Screen Exam Complete: Yes Emergency Medical Condition: Yes Medical Record Reviewed: Yes Interpretation(s) Last Impressions Head CT 11/06/171925 Signed Impressions: Service Date/Time: Monday, November 06, 2017 20:53 - CONCLUSION: 1. Prior right craniotomy with encephalomalacia in the operative bed and some punctate calcifications. No current mass effect or shift. There is no recent infarct identified. Jagdish Castillo MD Chest X-Ray 11/06/171925 Signed Impressions: Service Date/Time: Monday, November 06, 2017 19:39 - CONCLUSION: 1. Elevated right hemidiaphragm. Basilar atelectasis. Jagdish Castillo MD Differential Diagnosis Encephalopathy, versus progression of intracranial tumor, versus edema related to intracranial mass, versus infectious process such as urinary tract infection , versus pneumonia, versus electrolyte derangements, versus dehydration Narrative Course During the course of the patient's emergency department visit, the patient's history, examination, and differential diagnosis were reviewed with the patient. The patient was placed on a secured entrance monitor with oximetry and frequent blood pressure monitoring. The patient had IV access obtained and blood work sent for analysis. The patient had a EKG done on arrival that shows a sinus rhythm heart rate of 82, QRS duration is 81 ms, QTC [address] segment elevation is noted. There is a tremulous baseline noted which could be affecting interpretation of the EKG. The patient was initially provided normal saline at 100 mL/h. The patient's laboratory studies were reviewed and remarkable for a white count of 5.6, hemoglobin 13.6, platelets 183 with 15 monocytes, CMP is remarkable for potassium 3.4, creatinine 1.06, glucose 139, total bilirubin 1.4, AST 38, ammonia level less than 10, troponin I less than 0.02, lipase 190, TSH 0.369. PT 12.8, PTT 36.9. Radiology studies were reviewed and remarkable for a chest x-ray that shows an elevated right hemidiaphragm, basilar atelectasis, no other acute abnormality. CT scan of the brain showed prior right craniotomy with encephalomalacia in the operative bed and some punctate calcifications, no current mass-effect or shift The patient's results were discussed with the patient, including the plan of care. I explained that further testing and/ or monitoring is indicated based on the patient's history, examination, and/ or laboratory findings. Therefore, I recommended admission for additional evaluation. The patient expressed understanding and was agreeable with this plan. The patient was admitted to the hospital in stable condition and sent to a bed under the care of the [facility] service. Physician Communication Physician Communication The patient's case including history, pertinent physical examination findings, and laboratory studies were discussed with Dr. Cage. It was agreed that the patient would be admitted to the [facility] service. Diagnosis Primary Impression: Generalized weakness Additional Impressions: Glioblastoma multiforme Urinary tract infection Qualified Codes: N39.0 - Urinary tract infection, site not specified; R31.9 - Hematuria, unspecified Admitting Information Admitting Physician Requests: Sara Martin MD Nov 06, 2017 19:36
[2017-11-06 19:54] VITALS: BP 135/60; PULSE 86; RESP 18; TEMP 98.4; O2SAT 97
[2017-11-06 19:55] VITALS: RESP 18; O2SAT 97
[2017-11-06 19:58] LABS: AUTOMATED NEUTROPHIL # 2.7 TH/MM3 (1.8-7.7); BASOPHIL % 0.8 % (0.0-2.0); EOSINOPHIL # 0.3 TH/MM3 (0-0.4); EOSINOPHIL % 5.9 % (0.0-4.0); HEMATOCRIT 39.3 % (35.0-46.0); HEMOGLOBIN 13.6 GM/DL (11.6-15.3); LYMPH % 29.5 % (9.0-44.0); LYMPHOCYTE # 1.7 TH/MM3 (1.0-4.8); MEAN CELL VOLUME 86.8 FL (80.0-100.0); MEAN CORPUSCULAR HEMOGLOBIN 30.1 PG (27.0-34.0); MEAN CORPUSCULAR HGB CONC 34.7 % (32.0-36.0); MEAN PLATELET VOLUME 8.1 FL (7.0-11.0); MONOCYTE # 0.8 TH/MM3 (0-0.9); NEUT % 48.8 % (16.0-70.0); PLATELET COUNT 183 TH/MM3 (150-450); RED BLOOD COUNT 4.53 MIL/MM3 (4.00-5.30); RED CELL DISTRIBUTION WIDTH 16.1 % (11.6-17.2); WHITE BLOOD COUNT 5.6 TH/MM3 (4.0-11.0)
[2017-11-06] MEDS ORDERED: CALC1TAB12 PO (20:12)
[2017-11-06] MEDS ORDERED: TEMO1CAP8 PO (20:12)
[2017-11-06] MEDS ORDERED: PRAD150C PO (20:12)
[2017-11-06] MEDS: SODIUM CHLOR 0.9% 1000 ML INJ 1,000 ML IV SCH (20:12)
[2017-11-06] MEDS ORDERED: LEVE500T8 PO (20:12)
[2017-11-06 20:15] LABS: ALBUMIN 3.5 GM/DL (3.4-5.0); AST (GOT) 38 U/L (15-37); BICARBONATE 29.4 MEQ/L (21.0-32.0); BLOOD UREA NITROGEN 15 MG/DL (7-18); CHLORIDE 99 MEQ/L (98-107); CREATININE 1.06 MG/DL (0.50-1.00); GLOMERULAR FILTRATION RATE 50 ML/MIN (>89); GLUCOSE,RANDOM 139 MG/DL (74-106); INTERNATIONAL NORMALIZED RATIO 1.3 RATIO; MAGNESIUM 2.2 MG/DL (1.5-2.5); PROTHROMBIN TIME - PATIENT 12.8 SEC (9.8-11.6); SODIUM (NA) 136 MEQ/L (136-145)
[2017-11-06 20:27] LABS: ALKALINE PHOSPHATASE 55 U/L (45-117); ALT (GPT) 40 U/L (10-53); TOTAL BILIRUBIN ADULT 1.4 MG/DL (0.2-1.0); TOTAL PROTEIN 6.2 GM/DL (6.4-8.2); TROPONIN I LESS THAN 0.02 NG/ML (0.02-0.05)
--- NOTE | 2017-11-06 20:29 | RADRPT ---
EXAM DATE/TIME: 11/06/2017 19:39 [facility] COMPARISON: No previous studies available for comparison. INDICATIONS : Altered mental status. MEDICAL HISTORY : Hypothyroidism. Osteoarthritis. SURGICAL HISTORY : Tonsillectomy. Appendectomy. Cholecystectomy. Hysterectomy. Craniotomy. ENCOUNTER: Initial ACUITY: 1 day PAIN SCORE: Non-responsive. LOCATION: Bilateral chest FINDINGS: A single view of the chest demonstrates mild basilar atelectasis. Elevated right hemidiaphragm. Tortu ous aorta. No pneumothorax. CONCLUSION: 1. Elevated right hemidiaphragm. Basilar atelectasis. Jagdish Castillo MD on November 06, 2017 at 20:27 Board Certified Radiologist. This report was verified electronically.
[2017-11-06 20:54] LABS: BACTERIA, URINE MANY /hpf; BILIRUBIN, URINE NEG (NEG); BLOOD, URINE SMALL (NEG); GLUCOSE,URINE NEG (NEG); KETONE, URINE 10 mg/dL (NEG); MUCUS URINE FEW /lpf (OCC); NITRITE,URINE POS (NEG); PH, URINE 5.5 (5.0-8.5); SQUAMOUS EPITHELIAL CELL URINE 10 /hpf (0-5); URINE COLOR YELLOW (YELLW/STRAW); URINE LEUKOCYTE ESTERASE LARGE (NEG); WHITE BLOOD CELL CLUMPS MANY
[2017-11-06] MEDS ORDERED: POTASSIUM CHLORIDE 10 MEQ CONTROLLED RELEASE TAB PO ONE (21:00)
[2017-11-06 21:05] VITALS: BP 123/53; PULSE 81; RESP 14; O2SAT 96
--- NOTE | 2017-11-06 21:30 | RADRPT ---
EXAM DATE/TIME: 11/06/2017 20:53 [facility] COMPARISON: No previous studies available for comparison. INDICATIONS : General malaise, altered mental status RADIATION DOSE: 35.99 CTDIvol (mGy) ; Patient motion MEDICAL HISTORY : Spinal stenosis. Hepatitis. Glioblastoma. Chemotherapy. SURGICAL HISTORY : Hysterectomy. Craniotomy.Tumor resection. ENCOUNTER: Initial ACUITY: 3 days PAIN SCALE: 0/10 LOCATION: cranial TECHNIQUE: Multiple contiguous axial images were obtained of the head. Using automated exposure control and adj ustment of the mA and/or kV according to patient size, radiation dose was kept as low as reasonably a chievable to obtain optimal diagnostic quality images. DICOM format image data is available electro nically for review and comparison. FINDINGS: There is a prior right-sided craniotomy with some encephalomalacia in the posterior right frontal lob e extending into the temporal region. Left hemisphere intact. No acute bony abnormalities. Sinuses ar e clear. CONCLUSION: 1. Prior right craniotomy with encephalomalacia in the operative bed and some punctate calcifications . No current mass effect or shift. There is no recent infarct identified. Jagdish Castillo MD on November 06, 2017 at 21:26 Board Certified Radiologist. This report was verified electronically.
[2017-11-06 22:32] VITALS: BP 111/56; PULSE 73; RESP 14; O2SAT 95
[2017-11-06] MEDS ORDERED: SENNOSIDES 8.6 MG TAB PO PRN (23:30)
[2017-11-06] MEDS ORDERED: MAGNESIUM HYDROXIDE SUSP 30 ML CUP PO PRN (23:30)
[2017-11-06] MEDS ORDERED: NALOXONE HCL 0.4 MG/ML AMP IV PUSH PRN (23:30)
[2017-11-06] MEDS ORDERED: ONDANSETRON HCL 4 MG/2 ML VIAL IVP PRN (23:30)
[2017-11-06] MEDS ORDERED: HEPARIN SODIUM - SQ 10,000 UNITS/ML VIAL SQ SCH (23:30)
[2017-11-06] MEDS ORDERED: BISACODYL 10 MG SUPP RECTAL PRN (23:30)
[2017-11-06] MEDS ORDERED: MORPHINE SULFATE 4 MG/ML INJ IV PUSH PRN (23:30)
[2017-11-06] MEDS ORDERED: SODIUM CHLORIDE 0.9% FLUSH 10 ML FLUSH IV FLUSH PRN (23:30)
[2017-11-06] MEDS ORDERED: LACTULOSE SYRUP 20 GM/30 ML CUP PO PRN (23:30)
[2017-11-07 03:21] VITALS: BP 136/64; PULSE 72; RESP 18; TEMP 98.1; O2SAT 96
--- NOTE | 2017-11-07 04:03 | HHI.HP ---
HPI Service [facility] Primary Care Physician Lo Denis DO Admission Diagnosis Generalized weakness, dehydration, h/o glioblastoma on chemotherapy Diagnoses: Travel History International Travel<30 Days: No Contact w/Intl Traveler <30 Da: No Traveled to Known Affected Are: No History of Present Illness 77-year-old female with a past medical history significant for glioblastoma and left lower extremity DVT anticoagulated on Pradaxa was brought to the emergency department by her for evaluation of progressive weakness over the last 24 hours. The patient is interviewed alone and states that she feels fine now. She is able to answer my questions slowly however cannot tell me exactly why she came to the emergency department. Per emergency room documentation, the patient's stated that she had a second round of double dose chemotherapy for her glioblastoma on Sunday. He reports that over the last week she has had a diminished appetite. Denies any vomiting or diarrhea. No chest pain or shortness of breath. No abdominal pain. Increasing weakness without lateralizing signs/symptoms. Review of Systems ROS Limitations: Clinical Condition Except as stated in HPI: all other systems reviewed are Neg Past Family Social History Past Medical History (Obtained from medical records) Glioblastoma Left lower extremity DVT Hypothyroidism Osteoarthritis Past Surgical History Cataracts Tonsillectomy Appendectomy Cholecystectomy Hysterectomy Craniotomy with surgical resection of glioblastoma Reported Medications Reported Meds & Active Scripts Active Protonix (Pantoprazole Sodium) 40 Mg Tab 40 Mg PO DAILY Reported Temozolomide 140 Mg Cap 280 Mg PO [id number] Calcium 500 +D (Calcium Carbonate-Cholecalciferol) 500-400 Mg-Unit Tab 1 Tab PO TID Levetiracetam 500 Mg Tab 500 Mg PO BID Pradaxa (Dabigatran) 150 Mg Cap 150 Mg PO DAILY Potassium Chloride ER (Potassium Chloride) 20 Meq Tab 20 Meq PO BID Bumetanide 2 Mg Tab 2 Mg PO DAILY Ondansetron (Ondansetron HCl) 8 Mg Tab 8 Mg PO Q8HR PRN Vitamin D3 (Cholecalciferol) 2,000 Unit Cap 2,000 Units PO DAILY Allergies: Coded Allergies: Beef Containing Products (Verified Allergy, Unknown, 11/06/17) Bisphosphonates (Verified Allergy, Unknown, hypertension, nausea, 11/06/17) Egg Derived (Verified Allergy, Unknown, 11/06/17) Inhaled Anesthetics (Halogen Based) (Verified Allergy, Unknown, rash, ) Ysdiyps-Cei-Vkj Reductase Inhibitor (Verified Allergy, Unknown, trembles/ weakness, 11/06/17) acetaminophen (Verified Allergy, Unknown, 11/06/17) albuterol (Verified Allergy, Unknown, burning esophagus, anxious, rash, sleeplessness, 11/06/17) alendronate sodium (Verified Allergy, Unknown, chest pain, heart attack symptoms, 11/06/17) almond (Verified Allergy, Unknown, 11/06/17) barley (Verified Allergy, Unknown, 11/06/17) black walnut (Verified Allergy, Unknown, 11/06/17) corn (Verified Allergy, Unknown, 11/06/17) denosumab (Verified Allergy, Unknown, lethargy, 11/06/17) egg yolk (Verified Allergy, Unknown, 11/06/17) esomeprazole (Verified Allergy, Unknown, weakness, 11/06/17) green pepper (Verified Allergy, Unknown, 11/06/17) isoniazid (Verified Allergy, Unknown, 11/06/17) milk (Verified Allergy, Unknown, 11/06/17) cow milk omeprazole (Verified Allergy, Unknown, weakness, 11/06/17) oxaprozin (Verified Allergy, Unknown, 11/06/17) oxycodone (Verified Allergy, Unknown, 11/06/17) pantoprazole (Verified Allergy, Unknown, muscle spasms, weakness, 11/06/17) pollen extracts (Verified Allergy, Unknown, 11/06/17) potato (Verified Allergy, Unknown, 11/06/17) protease (Verified Allergy, Unknown, 11/06/17) barley tolmetin (Verified Allergy, Unknown, rash, 11/06/17) wheat (Verified Allergy, Unknown, 11/06/17) caffeine (Verified Adverse Reaction, Unknown, inflamation, 11/06/17) chocolate flavor (Verified Adverse Reaction, Unknown, inflammation, 11/06/17 ) fish oil (Verified Adverse Reaction, Unknown, trembles/weakness, 11/06/17) Family History Negative for CAD/DM Social History Negative for alcohol, tobacco and illicit drugs Physical Exam Vital Signs Vital Signs Date Time Temp Pulse Resp B/P (MAP) Pulse Ox O2 Delivery O2 Flow Rate FiO2 11/07/17 03:21 98.1 72 18 136/64 (88) 96 11/06/17 23:54 11/06/17 22:32 73 14 111/56 (74) 95 Room Air 11/06/17 21:05 81 14 123/53 (76) 96 Room Air 11/06/17 19:55 18 97 Room Air 11/06/17 19:54 98.4 86 18 135/60 (85) 97 Room Air 11/06/17 18:31 96 Room Air 11/06/17 18:28 90 16 145/69 (94) 95 Physical Exam GENERAL: female lying in bed SKIN: No rashes, ecchymoses or lesions. Cool and dry. HEAD: Atraumatic. Normocephalic. No temporal or scalp tenderness. EYES: Pupils equal round and reactive. Extraocular motions intact. No scleral icterus. No injection or drainage. ENT: Nose without bleeding, purulent drainage or septal hematoma. Throat without erythema, tonsillar hypertrophy or exudate. Uvula midline. Airway patent. NECK: Trachea midline. No JVD or lymphadenopathy. Supple, nontender, no meningeal signs. CARDIOVASCULAR: Regular rate and rhythm without murmurs, gallops, or rubs. RESPIRATORY: Clear to auscultation. Breath sounds equal bilaterally. No wheezes , rales, or rhonchi. GASTROINTESTINAL: Abdomen soft, non-tender, nondistended. No hepato-splenomegaly , or palpable masses. No guarding. MUSCULOSKELETAL: Extremities without clubbing, cyanosis, or edema. No joint tenderness, effusion, or edema noted. No calf tenderness. NEUROLOGICAL: Awake and alert. Cranial nerves II through XII intact. Motor and sensory grossly within normal limits. Five out of 5 muscle strength in all muscle groups. Low speech. Laboratory Laboratory Tests Test 11/06/17 19:44 11/06/17 20:00 White Blood Count 5.6 Red Blood Count 4.53 Hemoglobin 13.6 Hematocrit 39.3 Mean Corpuscular Volume 86.8 Mean Corpuscular Hemoglobin 30.1 Mean Corpuscular Hemoglobin Concent 34.7 Red Cell Distribution Width 16.1 Platelet Count 183 Mean Platelet Volume 8.1 Neutrophils (%) (Auto) 48.8 Lymphocytes (%) (Auto) 29.5 Monocytes (%) (Auto) 15.0 Eosinophils (%) (Auto) 5.9 Basophils (%) (Auto) 0.8 Neutrophils # (Auto) 2.7 Lymphocytes # (Auto) 1.7 Monocytes # (Auto) 0.8 Eosinophils # (Auto) 0.3 Basophils # (Auto) 0.0 CBC Comment DIFF FINAL Differential Comment Prothrombin Time 12.8 Prothromb Time International Ratio 1.3 Activated Partial Thromboplast Time 36.9 Blood Urea Nitrogen 15 Creatinine 1.06 Random Glucose 139 Total Protein 6.2 Albumin 3.5 Calcium Level 9.0 Magnesium Level 2.2 Alkaline Phosphatase 55 Aspartate Amino Transf (AST/SGOT) 38 Alanine Aminotransferase (ALT/SGPT) 40 Total Bilirubin 1.4 Sodium Level 136 Potassium Level 3.4 Chloride Level 99 Carbon Dioxide Level 29.4 Anion Gap 8 Estimat Glomerular Filtration Rate 50 Ammonia LESS THAN 10 Troponin I LESS THAN 0.02 Lipase 190 Thyroid Stimulating Hormone 3rd Gen 0.369 Urine Color YELLOW Urine Turbidity HAZY Urine pH 5.5 Urine Specific [place] 1.013 Urine Protein TRACE Urine Glucose (UA) NEG Urine Ketones 10 Urine Occult Blood SMALL Urine Nitrite POS Urine Bilirubin NEG Urine Urobilinogen LESS THAN 2.0 Urine Leukocyte Esterase LARGE Urine RBC 5 Urine WBC 70 Urine WBC Clumps MANY Urine Squamous Epithelial Cells 10 Urine Bacteria MANY Urine Mucus FEW Microscopic Urinalysis Comment CULTURE INDICATED Date/Time Source Procedure Growth Status 11/06/17 20:00 Urine Clean Catch Urine Culture Pending Received Result Diagram: 11/06/17194311/06/171943 Caprini VTE Risk Assessment Caprini VTE Risk Assessment: Mod/High Risk (score >= 2) Caprini Risk Assessment Model Point Value = 1 Point Value = 2 Point Value = 3 Point Value = 5 Age 41-60 Minor surgery BMI > 25 kg/m2 Swollen legs Varicose veins or History of unexplained or recurrent spontaneous Oral contraceptives or hormone replacement Sepsis (< 1 month) Serious lung disease, including pneumonia (< 1 month) Abnormal pulmonary function Acute myocardial infarction Congestive heart failure (< 1 month) History of inflammatory bowel disease Medical patient at bed rest Age 61-74 Arthroscopic surgery Major open surgery (> 45 min) Laparoscopic surgery (> 45 min) Malignancy Confined to bed (> 72 hours) Immobilizing plaster cast Central venous access Age >= 75 History of VTE Family history of VTE Factor V Leiden Prothrombin [id number] Lupus anticoagulant Anticardiolipin antibodies Elevated serum homocysteine Heparin-induced thrombocytopenia Other congenital or acquired thrombophilia Stroke (< 1 month) Elective arthroplasty Hip, pelvis, or leg fracture Acute spinal cord injury (< 1 month) Prophylaxis Regimen Total Risk Factor Score Risk Level Prophylaxis Regimen 0-1 Low Early ambulation 2 Moderate Order ONE of the following: *Sequential Compression Device (SCD) *Heparin 5000 units SQ BID 3-4 Higher Order ONE of the following medications: *Heparin 5000 units SQ TID *Enoxaparin/Lovenox 40 mg SQ daily (WT < 150 kg, CrCl > 30 mL/min) *Enoxaparin/Lovenox 30 mg SQ daily (WT < 150 kg, CrCl > 10-29 mL/min) *Enoxaparin/Lovenox 30 mg SQ BID (WT < 150 kg, CrCl > 30 mL/min) AND/OR *Sequential Compression Device (SCD) 5 or more Highest Order ONE of the following medications: *Heparin 5000 units SQ TID (Preferred with Epidurals) *Enoxaparin/Lovenox 40 mg SQ daily (WT < 150 kg, CrCl > 30 mL/min) *Enoxaparin/Lovenox 30 mg SQ daily (WT < 150 kg, CrCl > 10-29 mL/min) *Enoxaparin/Lovenox 30 mg SQ BID (WT < 150 kg, CrCl > 30 mL/min) AND *Sequential Compression Device (SCD) Assessment and Plan Assessment and Plan Assessment/plan: 1. Progressive weakness Likely secondary to chemotherapy received last Sunday Oncology consulted, Dr. Frank, appreciate recommendations CT of the head shows prior right craniotomy without current mass effect or shift PT 2. Glioblastoma Continue Keppra for seizure prophylaxis Appreciate oncology input 3. Left lower extremity DVT Continue home Pradaxa 4. Urinary tract infection UA consistent with urinary tract infection despite 10 squamous epithelial cells Urine culture pending Rocephin FEN Regular diet Ns at 100 cc/hr Electrolytes: Status post oral potassium repletion, monitor BMP Jaylene Rosa MD Nov 07, 2017 04:03
[2017-11-07] MEDS: SODIUM CHLOR 0.9% 1000 ML INJ 1,000 ML IV SCH ×2 (04:45→17:30)
[2017-11-07] MEDS: cefTRIAXone INJ 1,000 MG in SODIUM CHLORIDE 0.9% INJ 100 ML IV SCH (04:45)
[2017-11-07 05:31] LABS: AUTOMATED NEUTROPHIL # 2.5 TH/MM3 (1.8-7.7); BASOPHIL % 0.8 % (0.0-2.0); EOSINOPHIL # 0.4 TH/MM3 (0-0.4); EOSINOPHIL % 7.3 % (0.0-4.0); HEMATOCRIT 37.2 % (35.0-46.0); HEMOGLOBIN 12.9 GM/DL (11.6-15.3); LYMPH % 27.5 % (9.0-44.0); LYMPHOCYTE # 1.4 TH/MM3 (1.0-4.8); MEAN CELL VOLUME 88.5 FL (80.0-100.0); MEAN CORPUSCULAR HEMOGLOBIN 30.7 PG (27.0-34.0); MEAN CORPUSCULAR HGB CONC 34.7 % (32.0-36.0); MEAN PLATELET VOLUME 8.6 FL (7.0-11.0); MONO % 16.1 % (0.0-8.0); MONOCYTE # 0.8 TH/MM3 (0-0.9); NEUT % 48.3 % (16.0-70.0); PLATELET COUNT 164 TH/MM3 (150-450); RED BLOOD COUNT 4.21 MIL/MM3 (4.00-5.30); RED CELL DISTRIBUTION WIDTH 16.1 % (11.6-17.2); WHITE BLOOD COUNT 5.3 TH/MM3 (4.0-11.0)
[2017-11-07 05:43] LABS: BICARBONATE 26.8 MEQ/L (21.0-32.0); CALCIUM 8.6 MG/DL (8.5-10.1); CREATININE 0.87 MG/DL (0.50-1.00)
[2017-11-07 07:29] VITALS: BP 138/63; PULSE 68; RESP 12; TEMP 98; O2SAT 96
--- NOTE | 2017-11-07 08:02 | EKG ---
Date Performed: 11/06/2017 Time Performed: 19:51:23 PTAGE: 77 years EKG: Sinus rhythm MODERATE ST DEPRESSION ABNORMAL ECG PREVIOUS TRACING : 06/04/2017 06.45 DOCTOR: Wolfgang Sutton Interpretating Date/Time 11/07/2017 08:01:12
[2017-11-07] MEDS: SODIUM CHLORIDE 0.9% FLUSH 10 ML FLUSH IV FLUSH SCH ×2 (09:00→21:54)
[2017-11-07] MEDS: BUMETANIDE 1 MG TAB PO SCH (10:08)
[2017-11-07] MEDS: DABIGATRAN ETEXILATE 150 MG CAP PO SCH (10:08)
[2017-11-07] MEDS: PANTOPRAZOLE SOD 40 MG DELAYED RELEASE TAB PO SCH (10:08)
[2017-11-07] MEDS: DOCUSATE SODIUM 50 MG/SENNA 8.6 MG TAB PO SCH ×2 (10:08→21:54)
[2017-11-07] MEDS: levETIRAcetam 500 MG TAB PO SCH ×2 (10:08→21:54)
--- NOTE | 2017-11-07 10:15 | MB ---
cc: Osvaldo Frank MD DATE: 11/07/2017 ATTENDING PHYSICIAN: Dr. Cage REASON FOR CONSULTATION: Oncology consulted to render an opinion regarding patient with a glioblastoma admitted with increased weakness. HISTORY OF PRESENT ILLNESS: The patient is a very pleasant 77-year-old female with a history of glioblastoma currently receiving consolidation Temodar, who presented to the hospital with a complaint of increased weakness. is not at the bedside at this time. The patient is a rather poor historian. She completed cycle 2 of consolidation Temodar last Sunday. Reportedly, she has decreased appetite over the last day, she has increased weakness and her had difficulty getting her out of bed. She has been sleeping more. She was told to come to the emergency room. Reportedly, she has fallen a few times over the last 1 week, but she denies any head trauma. She denies any fever or chills. She denies any headache. She denies any visual changes. She denies any focal weakness or numbness. She has no chest pain, shortness of breath or cough. Denies any nausea, vomiting, diarrhea or abdominal pain. No dysuria or hematuria. PAST MEDICAL HISTORY: 1. Glioblastoma multiforme. 2. Left lower extremity deep venous thrombosis. 3. Hypothyroidism. 4. Osteoarthritis. PAST SURGICAL HISTORY: 1. Right craniotomy. 2. Cataract surgery. 3. Appendectomy. 4. Cholecystectomy. 5. Total hysterectomy. 6. Tonsillectomy. FAMILY HISTORY: One son and a daughter both healthy. SOCIAL HISTORY: Lives with her . She denies any tobacco or alcohol use. ALLERGIES: MULTIPLE ALLERGIES DOCUMENTED IN HER CHART. CURRENT MEDICATIONS: 1. Miranda-Colace. 2. Bumex. 3. Pradaxa. 4. Keppra. 5. Protonix. 6. Ceftriaxone. REVIEW OF SYSTEMS: CONSTITUTIONAL: As above. EYES: Negative. ENT: Negative. CARDIOVASCULAR: Denied any chest pressure or palpitation. RESPIRATORY: Denied any shortness of breath or cough. GASTROINTESTINAL: Denies any nausea, vomiting, diarrhea or abdominal pain. GENITOURINARY: Denies dysuria or hematuria. MUSCULOSKELETAL: Negative. HEMATOLOGY: Negative. ENDOCRINE: Negative. DERMATOLOGY: Negative. PSYCHIATRIC: Negative. NEUROLOGIC: As above. PHYSICAL EXAMINATION: VITAL SIGNS: Temperature 98, blood pressure 138/63, O2 saturation 96 percent. GENERAL: She is awake. She is oriented to place, self and event. HEENT: Atraumatic, normocephalic. Pupils are equal, round, and reactive to light. Extraocular muscles intact. No scleral icterus. Oropharynx dry mucosa. No lesion, no thrush or mucositis. NECK: No thyromegaly. No palpable mass. LYMPHATIC: No palpable cervical, clavicular, axillary, or inguinal lymph nodes. CARDIOVASCULAR: Regular S1, S2. No murmur. LUNGS: Clear to auscultation bilaterally. No wheezing or rhonchi. ABDOMEN: Soft, nontender. Cannot palpate the liver or spleen. EXTREMITIES: No cyanosis or clubbing. She has trace ankle edema, no calf tenderness. SKIN: No rash or petechiae. NEUROLOGIC: No focal deficit. She has generalized weakness. LABORATORY DATA: CBC within normal limits. Creatinine of 0.87. ASSESSMENT: 1. Glioblastoma multiforme. She was diagnosed with a glioblastoma in May. She had a right craniotomy with resection of about 80% of the tumor. Postoperative MRI showed a residual enhancing lesion. The MGMT methylation was negative. She had concurrent radiation with Temodar which she completed around August. She just completed cycle 2 of consolidation Temodar last Sunday. Her recent MRI showed possible progression of the main mass, although cannot totally rule out radiation changes. She was also noted to have a satellite lesion adjacent to the main mass, which was stable on the last MRI. The patient currently is not on steroids. During this admission, she had a CT of the head which showed post-craniotomy changes and encephalomalacia, but no apparent acute changes. She has generalized weakness, but no focal deficit. The weakness may be due to dehydration and urinary tract infection, but cannot totally rule out progression of the glioblastoma. We will get another MRI for further evaluation. 2. Generalized weakness, which could be due to a urinary tract infection and dehydration. Creatinine was elevated when she first presented. Urinalysis was abnormal. Urine culture is still pending. She is afebrile. She has no leukocytosis. She was started on ceftriaxone. 3. History of left lower extremity deep venous thrombosis. She is on Pradaxa. No apparent recurrent clot. She has chronic bilateral lower extremity edema due to hypoalbuminemia. 4. Hypothyroidism. 5. Osteoarthritis. PLAN: 1. Get MRI of the brain with perfusion scan. 2. Continue Pradaxa. 3. Continue antibiotic per primary team pending a urine culture. Thank you Dr. Cage for asking me to see this patient. MD LARRY Wyatt/ROLAND , 09:24 AM , 10:14 AM [facility]
[2017-11-07] MEDS ORDERED: POTASSIUM CHLORIDE 20 MEQ CONTROLLED RELEASE TAB PO ONE (10:30)
[2017-11-07 11:23] VITALS: BP 118/56; PULSE 78; RESP 12; TEMP 98.3; O2SAT 95
[2017-11-07 12:54] LABS: ALBUMIN 3.2 GM/DL (3.4-5.0); DIRECT BILIRUBIN ADULT 0.3 MG/DL (0.0-0.2)
[2017-11-07 12:55] LABS: INDIRECT BILIRUBIN 0.9 MG/DL (0.0-0.8); TOTAL BILIRUBIN ADULT 1.2 MG/DL (0.2-1.0); TOTAL PROTEIN 5.7 GM/DL (6.4-8.2)
[2017-11-07] MEDS ORDERED: GADODIAMIDE PF 287 MG/ML 20 ML VIAL (for RAD MRI) IVCONTRAST ONE (14:10)
--- NOTE | 2017-11-07 14:31 | RADRPT ---
EXAM DATE/TIME: 11/07/2017 12:59 [facility] COMPARISON: MRI BRAIN W & W/O CONTRAST, June 05, 2017, 10:31. INDICATIONS : Altered mental status. Generalized weakness. CONTRAST: 20 cc Omniscan (gadodiamide) IV MEDICAL HISTORY : Hepatitis. Glioblastoma, radiation/chemo SURGICAL HISTORY : Cholecystectomy. Hysterectomy. Appendectomy. crainiotomy, tonsilectomy ENCOUNTER: Subsequent ACUITY: 3 day PAIN SCORE: 0/10 LOCATION: cranial TECHNIQUE: Multiplanar, multisequence MRI of the brain was performed both prior to and following the administrat ion of paramagnetic contrast. FINDINGS: The ring-enhancing lesion in the right mid convexity parietal lobe is slightly smaller than on prior examination measuring 2.8 x 2.9 cm (previously measured 3.4 x 3.3 cm. The pattern of peripheral ring enhancement is similar to prior. A new finding from the prior examination is linear enhancement andre ng the anterior and posterior margin of the biopsy tract extending to the dural surface. There is al so a new 7 mm ring-enhancing lesion adjacent to the dominant mass adjacent to the the superior latera l margin of the mass. The degree of surrounding vasogenic edema has decreased and there is less defo rmity of the body of the lateral ventricle; the body of the lateral ventricle has a normal configurat ion and the 3rd ventricle is in the midline, normal in size. There are no new areas of enhancement s een in the left hemisphere or infratentorial brain. CONCLUSION: The dominant mass in the right parietal lobe has decreased in size slightly, but there is evidence of recurrent tumor with enhancement along the biopsy tract and a new 7 mm enhancing nodule adjacent to the superior lateral margin of the residual mass. Decrease in the amount of surrounding edema when c ompared to May 2017. Los Navarro MD on November 07, 2017 at 14:23 Board Certified Radiologist. This report was verified electronically.
--- NOTE | 2017-11-07 14:45 | RADRPT ---
EXAM DATE/TIME: 11/07/2017 12:59 [facility] COMPARISON: MRI BRAIN W & W/O CONTRAST, November 07, 2017, 12:59. INDICATIONS : Altered mental status. Generalized weakness. CONTRAST: 20 cc Omniscan (gadodiamide) IV MEDICAL HISTORY : Hepatitis. Glioblastoma, radiation/chemo SURGICAL HISTORY : Cholecystectomy. Hysterectomy. Appendectomy. crainiotomy, tonsilectomy ENCOUNTER: Subsequent ACUITY: 3 day PAIN SCORE: 0/10 LOCATION: cranial TECHNIQUE: Whole brain MR perfusion was performed. Parametric maps generated included time to peak, mean transi t time, cerebral blood volume and cerebral blood flow. FINDINGS: The tumor cavity demonstrates no blood flow or blood volume does not there is some linear blood volum e about the right tumor cavity and in the enhancing nodule stopped there are no significant asymmetri es in transit time or time to peak between the left and right hemispheres. CONCLUSION: There is evidence of some blood volume in the new enhancing nodule adjacent to the primary tumor. Los Navarro MD on November 07, 2017 at 14:34 Board Certified Radiologist. This report was verified electronically.
[2017-11-07 16:11] VITALS: BP 129/75; PULSE 92; RESP 12; TEMP 98.2; O2SAT 95
--- NOTE | 2017-11-07 18:22 | PD.CONS ---
Consult Service Palliative Care . Consult Requested By Dr. Meyer . Primary Care Physician Lo Denis DO . Reason for Consultation a. To assist with evaluation and management of symptoms including: lethargy ; dysuria; decreased appetite b. To assist medical decision maker(s) with: better understanding of current medical conditions; weighing benefits/burdens of medical treatment options; making medical treatment decisions. . HPI History of Present Illness Ms. Newman is a 77-year-old female with a known history of glioblastoma multiform a; left lower extremity deep venous thrombosis; hypothyroidism; and osteoarthritis; who presented to the [facility] Emergency Department on 10/21 due to weakness which had increased over the prior 24 hours to the point where the patient was unable to stand. The patient had been in excellent health and not needing any prescription medications until she was diagnosed with her glioblastoma in May,. She underwent right craniotomy with resection of approximately 80% of the tumor. She received 33 radiation treatments and had concurrent Temodar which she completed in August,. She completed her second cycle of consolidation Temodar on 11/03/17. Her treatment course has been complicated by a left lower extremity deep venous thrombosis for which she is now on Dabigatran. The patient had been on systemic steroids in the past. The patient reports that she had adverse reactions to these even at quite low doses. Side effects were primarily psychological which were to the point of causing suicidal ideation. reports that since the surgery, the patient has had very significant lethargy which has only worsened over the course of her treatment. She is currently sleeping over 20 hours per day. The patient had been strong enough to ambulate to the bathroom with assistance up until about 24 hours prior to this admission. The patient has had several falls over the last months. There have been no significant injuries but there have been concerns given the patient is on anticoagulant therapy for her deep venous thrombosis. Appetite had been quite good early in the disease particularly when she was receiving high-dose steroids. It has diminished over time and she has been eating very little over the last week or so. There has been no abdominal pain, nausea, diarrhea, constipation, black stools or bloody stools. Patient and spouse deny fevers, cough, congestion. There has been no chest pain or palpitations or shortness of breath. There has been some urinary frequency and at least one episode of dysuria. The patient has been remarkably free of pain through her entire disease process. even recently, there has been no reported headache, or neck pain. Initial vital signs in the emergency department showed the following: Temperature 98.4; pulse 90; respiratory rate 16; blood pressure 145/69; pulse oximetry 95% on room air Physical examination by the emergency department physician noted the following: Patient was in no acute distress. Exam was unremarkable except for some slowness in answering questions. Initial diagnostic testing revealed the following: * CBC showed WBC 5.6; hemoglobin 13.6; platelet count 183 * Coagulation profile showed PT 12.8; INR 1.3; PTT 36.9 * Chemistry profile showed sodium 136; potassium 3.4; chloride 99; CO2 29.4; BUN 15; creatinine 1.06; GFR 50; anion gap 8; calcium 9.0; magnesium 2.2 * Liver function studies showed total bilirubin 1.4; alkaline phosphatase 55; AST 38; ALT 40; total protein 6.2; albumin 3.5 * TSH level was 0.369 * Ammonia level less than 10 * Troponin less than 0.02 * Urinalysis was remarkable for small ketones; positive nitrites; large leukocyte esterase; significant white blood cells including many clumps * EKG showed sinus rhythm with a heart rate of [address]-T wave changes. * Chest x-ray showed some basilar atelectasis * CT of the head showed the prior right craniotomy. There is no mass-effect or shift. No recent infarct identified. IV hydration was started in the emergency department. [facility] was consulted. The patient has been started on ceftriaxone for her apparent urinary tract infection. Preliminary urine culture results show the patient to be growing a gram-negative jose. MRI of the brain was performed today. This imaging shows that the dominant mass in the right parietal lobe has decreased in size slightly but there is evidence of recurrent tumor with enhancement along the biopsy tract and is well , a new 7 mm enhancing nodule adjacent to the superior lateral margin of the residual mass. It remains unclear at this time whether the increase in weakness is secondary to the apparent urinary tract infection or to progression of her tumor. . Function/Cognitive Trajectory As noted above, the patient was in excellent health and not requiring any prescription medications prior to the diagnosis of her glioblastoma. Since her surgery, her primary symptom has been debilitating lethargy/fatigue/weakness. This has only grown worse over the months. She has been sleeping over 20 hours per day. Weakness became particularly bad over the 24 hours leading up to this admission. The patient's is the sole caregiver. He has been unable to leave her alone due to risk of falls. He was able to manage as long as patient was able to ambulate to the bathroom with assistance. Once she became unable to walk he could no longer manage at home. Patient's appetite has decreased. . Review of Systems ROS Limitations: Clinical Condition (Patient is very lethargic and sleepy. Review of systems is taken from the patient's and from the medical record.) Constitutional: COMPLAINS OF: Fatigue, Weight loss, Generalized weakness, Sleep problems, DENIES: Diaphoretic episodes, Fever, Weight gain, Chills, Pain Endocrine: COMPLAINS OF: Polyuria, DENIES: Polydipsia (Sleeps most of the time. ), Polyphagia Eyes: DENIES: Blurred vision, Diplopia, Eye pain, Vision loss, Double Vision Ears, nose, mouth, throat: DENIES: Tinnitus, Hearing loss, Throat pain, Epistaxis Respiratory: DENIES: Apneas, Cough, Hemoptysis, Shortness of breath Cardiovascular: DENIES: Chest pain, Palpitations, Dyspnea on Exertion Gastrointestinal: DENIES: Abdominal pain, Black stools, Bloody stools, Constipation, Diarrhea, Nausea, Vomiting Genitourinary: COMPLAINS OF: Urinary frequency, Urgency, Dysuria, DENIES: Urinary incontinence Musculoskeletal: COMPLAINS OF: Joint pain, Muscle aches, DENIES: Back pain, Neck pain Integumentary: DENIES: Rash Hematologic/Lymphatics: DENIES: Bruising Immunologic/Allergic: DENIES: Eczema, Urticaria Neurologic: COMPLAINS OF: Abnormal gait, DENIES: Headache, Seizures, Tremor, Poor Balance Psychiatric: DENIES: Anxiety, Depression, Hallucinations, Agitation Past Family Social History Coded Allergies: Beef Containing Products (Verified Allergy, Unknown, 11/06/17) Bisphosphonates (Verified Allergy, Unknown, hypertension, nausea, 11/06/17) Egg Derived (Verified Allergy, Unknown, 11/06/17) Inhaled Anesthetics (Halogen Based) (Verified Allergy, Unknown, rash, ) Oqpsgzt-Rre-Njv Reductase Inhibitor (Verified Allergy, Unknown, trembles/ weakness, 11/06/17) acetaminophen (Verified Allergy, Unknown, 11/06/17) albuterol (Verified Allergy, Unknown, burning esophagus, anxious, rash, sleeplessness, 11/06/17) alendronate sodium (Verified Allergy, Unknown, chest pain, heart attack symptoms, 11/06/17) almond (Verified Allergy, Unknown, 11/06/17) barley (Verified Allergy, Unknown, 11/06/17) black walnut (Verified Allergy, Unknown, 11/06/17) corn (Verified Allergy, Unknown, 11/06/17) denosumab (Verified Allergy, Unknown, lethargy, 11/06/17) egg yolk (Verified Allergy, Unknown, 11/06/17) esomeprazole (Verified Allergy, Unknown, weakness, 11/06/17) green pepper (Verified Allergy, Unknown, 11/06/17) isoniazid (Verified Allergy, Unknown, 11/06/17) milk (Verified Allergy, Unknown, 11/06/17) cow milk omeprazole (Verified Allergy, Unknown, weakness, 11/06/17) oxaprozin (Verified Allergy, Unknown, 11/06/17) oxycodone (Verified Allergy, Unknown, 11/06/17) pantoprazole (Verified Allergy, Unknown, muscle spasms, weakness, 11/06/17) pollen extracts (Verified Allergy, Unknown, 11/06/17) potato (Verified Allergy, Unknown, 11/06/17) protease (Verified Allergy, Unknown, 11/06/17) barley tolmetin (Verified Allergy, Unknown, rash, 11/06/17) wheat (Verified Allergy, Unknown, 11/06/17) caffeine (Verified Adverse Reaction, Unknown, inflamation, 11/06/17) chocolate flavor (Verified Adverse Reaction, Unknown, inflammation, 11/06/17 ) fish oil (Verified Adverse Reaction, Unknown, trembles/weakness, 11/06/17) Past Medical History Glioblastoma multiforme Left lower extremity DVT Hypothyroidism Osteoarthritis Spinal stenosis . Past Surgical History Cataracts 2011 Tonsillectomy Appendectomy 1957 Cholecystectomy Cyst removed from right arm 1977 Total Hysterectomy Right sided craniotomy with surgical resection of glioblastoma Dental implants . Reported Medications Pre-hospitalization meds at home included: Protonix (Pantoprazole Sodium) 40 Mg Tab 40 Mg PO DAILY Temozolomide 140 Mg Cap 280 Mg PO [id number] Calcium 500 +D (Calcium Carbonate-Cholecalciferol) 500-400 Mg-Unit Tab 1 Tab PO TID Levetiracetam 500 Mg Tab 500 Mg PO BID Pradaxa (Dabigatran) 150 Mg Cap 150 Mg PO DAILY Potassium Chloride ER (Potassium Chloride) 20 Meq Tab 20 Meq PO BID Bumetanide 2 Mg Tab 2 Mg PO DAILY Ondansetron (Ondansetron HCl) 8 Mg Tab 8 Mg PO Q8HR PRN Vitamin D3 (Cholecalciferol) 2,000 Unit Cap 2,000 Units PO DAILY . Current Medications Medications (Trade) Dose Ordered Sig/Felipe Route Start Time Stop Time Status Last Admin Sodium Chloride 1,000 ml @ 100 mls/hr Q10H IV 11/06/17 19:45 11/07/17 04:45 (NS Flush) 2 ml UNSCH PRN IV FLUSH 11/06/17 23:30 (NS Flush) 2 ml BID IV FLUSH 11/07/17 09:00 (Zofran Inj) 4 mg Q6H PRN IVP 11/06/17 23:30 (Narcan Inj) 0.4 mg UNSCH PRN IV PUSH 11/06/17 23:30 (Miranda-Colace) 1 tab BID PO 11/07/17 09:00 11/07/17 10:08 (Milk Of Magnesia Liq) 30 ml Q12H PRN PO 11/06/17 23:30 (Senokot) 17.2 mg Q12H PRN PO 11/06/17 23:30 (Dulcolax Supp) 10 mg DAILY PRN RECTAL 11/06/17 23:30 (Lactulose Liq) 30 ml DAILY PRN PO 11/06/17 23:30 (Morphine Inj) 4 mg Q3H PRN IV PUSH 11/06/17 23:30 (Bumetanide) 2 mg DAILY PO 11/07/17 09:00 11/07/17 10:08 (Pradaxa) 150 mg DAILY PO 11/07/17 09:00 11/07/17 10:08 (Keppra) 500 mg BID PO 11/07/17 09:00 11/07/17 10:08 (Protonix) 40 mg DAILY PO 11/07/17 09:00 11/07/17 10:08 Ceftriaxone Sodium 1000 mg/ Sodium Chloride 100 ml @ 200 mls/hr Q24H IV 11/07/17 04:00 11/07/17 04:45 . Family History Patient's mother of unknown causes at age 95. Patient never knew her father. She had only 1/2 brothers and sisters. she is not aware of any diseases that ran in the family. Specifically, no known cancer, heart disease, brain tumors, lung disease, kidney disease. . Substance Use Tobacco: Lifetime non-smoker Alcohol: Lifetime non-drinker Prescription med abuse: No hx of abuse Illicits: No known use of illicits. . Psychosocial History Patient is originally from [place]. 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 Moved to [place] about 27 years ago. Patient has a Masters degree in teaching and speech and was employed in her areas of expertise. once. She has been to [facility] for 59 years. They have two children -- a son and a daughter--who live in [place] and at [place] respectively. There are 6 grandchildren. Patient has been living at home with her who is the primary caregiver. . Spiritual/Cultural Factors Zoroastrianism and spirituality are an important part of her life. She identifies as [facility]. Her is a retired health physics technician and provides spiritual support. . Living Will: Copy in medical record Health Care Surrogate: Copy in medical record Durable Power of Seater Assembler: Never completed Date completed: Living will and health care surrogate designation were completed on 08/23/2009. . Health Care Surrogate(s): Designated health care surrogate is the patient's spouse -- Sandro L Newman. . Documented care wishes: Patient's living will is a typical [place] living will indicating that she would NOT want life prolonging measures should she be determined to have an end stage condition, terminal illness, or persistent vegetative state. . Today's verbally stated goals: Patient has stated that she desired NO CODE status. She only wants ongoing cancer directed therapies if Dr. Frank continues to feel that they will improve her quality of life. . Family/friends goals: Spouse is at bedside and supports her 's goals. He agrees with DNR status and also only wants ongoing aggressive cancer directed therapies if there is hope for improvement. . Ethical and Legal Issues Patient is cognitively intact, but very lethargic. She should not be excluded from decision making, but decision making should include her health care surrogate. . Physical Exam Vital Signs Date Time Temp Pulse Resp B/P (MAP) Pulse Ox O2 Delivery O2 Flow Rate FiO2 11/07/17 16:11 98.2 92 12 129/75 (93) 95 11/07/17 11:23 98.3 78 12 118/56 (76) 95 11/07/17 07:29 98.0 68 12 138/63 (88) 96 11/07/17 03:21 98.1 72 18 136/64 (88) 96 11/06/17 23:54 11/06/17 22:32 73 14 111/56 (74) 95 Room Air 11/06/17 21:05 81 14 123/53 (76) 96 Room Air 11/06/17 19:55 18 97 Room Air 11/06/17 19:54 98.4 86 18 135/60 (85) 97 Room Air 11/06/17 18:31 96 Room Air 11/06/17 18:28 90 16 145/69 (94) 95 . 11/07/17 11/08/17 19:00 07:00 # Voids 4 . Exam CONSTITUTIONAL/GENERAL: This is a pale, adequately nourished patient, in no apparent distress.She is very lethargic and drifts off to sleep even while trying to answer a question. Able to smile. Generalized weakness. TUBES/LINES/DRAINS: Peripheral IV; external urine collection device; SKIN: No jaundice, rashes.. Skin tear/abrasion left elbow. Skin temperature appropriate. Not diaphoretic. HEAD: Atraumatic. Normocephalic. EYES: Pupils equal and round and reactive. Extraocular motions intact. No scleral icterus. No injection or drainage. Fundi not examined. ENT: Hearing grossly normal. Nose without bleeding or purulent drainage. Throat without visible erythema, exudates, masses, or lesions. NECK: Trachea midline. Supple, nontender. No palpable thyroid enlargement or nodularity. CARDIOVASCULAR: Regular rate and rhythm without murmurs, gallops, or rubs. No JVD. Peripheral pulses symmetric. RESPIRATORY/CHEST: Symmetric, unlabored respirations. Clear to auscultation. Breath sounds equal bilaterally. No wheezes, rales, or rhonchi. GASTROINTESTINAL: Abdomen soft, non-tender, nondistended. No hepato-splenomegaly , or palpable masses. No guarding. Bowel sounds present. GENITOURINARY: Without palpable bladder distension. MUSCULOSKELETAL: Extremities without clubbing, cyanosis, or edema. Mild left calf tenderness but no swelling, no palpable "cord", negative Homans. No mottling or clubbing. LYMPHATICS: No palpable cervical or supraclavicular adenopathy. NEUROLOGICAL: Lethargic, but awakens with voice and stimulation. Easily drifts back to sleep. Answers questions appropriately when awakened. Motor and sensory grossly within normal limits. Follows commands. Moves all extremities. PSYCHIATRIC: No obvious anxiety/depression. No apparent hallucinations or other psychotic thought process. . Diagnostic Tests Laboratory Laboratory Tests Test 11/06/17 19:44 11/06/17 20:00 11/07/17 04:29 White Blood Count 5.6 TH/MM3 (4.0-11.0) 5.3 TH/MM3 (4.0-11.0) Red Blood Count 4.53 MIL/MM3 (4.00-5.30) 4.21 MIL/MM3 (4.00-5.30) Hemoglobin 13.6 GM/DL (11.6-15.3) 12.9 GM/DL (11.6-15.3) Hematocrit 39.3 % (35.0-46.0) 37.2 % (35.0-46.0) Mean Corpuscular Volume 86.8 FL (80.0-100.0) 88.5 FL (80.0-100.0) Mean Corpuscular Hemoglobin 30.1 PG (27.0-34.0) 30.7 PG (27.0-34.0) Mean Corpuscular Hemoglobin Concent 34.7 % (32.0-36.0) 34.7 % (32.0-36.0) Red Cell Distribution Width 16.1 % (11.6-17.2) 16.1 % (11.6-17.2) Platelet Count 183 TH/MM3 (150-450) 164 TH/MM3 (150-450) Mean Platelet Volume 8.1 FL (7.0-11.0) 8.6 FL (7.0-11.0) Neutrophils (%) (Auto) 48.8 % (16.0-70.0) 48.3 % (16.0-70.0) Lymphocytes (%) (Auto) 29.5 % (9.0-44.0) 27.5 % (9.0-44.0) Monocytes (%) (Auto) 15.0 % (0.0-8.0) 16.1 % (0.0-8.0) Eosinophils (%) (Auto) 5.9 % (0.0-4.0) 7.3 % (0.0-4.0) Basophils (%) (Auto) 0.8 % (0.0-2.0) 0.8 % (0.0-2.0) Neutrophils # (Auto) 2.7 TH/MM3 (1.8-7.7) 2.5 TH/MM3 (1.8-7.7) Lymphocytes # (Auto) 1.7 TH/MM3 (1.0-4.8) 1.4 TH/MM3 (1.0-4.8) Monocytes # (Auto) 0.8 TH/MM3 (0-0.9) 0.8 TH/MM3 (0-0.9) Eosinophils # (Auto) 0.3 TH/MM3 (0-0.4) 0.4 TH/MM3 (0-0.4) Basophils # (Auto) 0.0 TH/MM3 (0-0.2) 0.0 TH/MM3 (0-0.2) CBC Comment DIFF FINAL DIFF FINAL Differential Comment Prothrombin Time 12.8 SEC (9.8-11.6) Prothromb Time International Ratio 1.3 RATIO Activated Partial Thromboplast Time 36.9 SEC (24.3-30.1) Blood Urea Nitrogen 15 MG/DL (7-18) 11 MG/DL (7-18) Creatinine 1.06 MG/DL (0.50-1.00) 0.87 MG/DL (0.50-1.00) Random Glucose 139 MG/DL (74-106) 109 MG/DL (74-106) Total Protein 6.2 GM/DL (6.4-8.2) 5.7 GM/DL (6.4-8.2) Albumin 3.5 GM/DL (3.4-5.0) 3.2 GM/DL (3.4-5.0) Calcium Level 9.0 MG/DL (8.5-10.1) 8.6 MG/DL (8.5-10.1) Magnesium Level 2.2 MG/DL (1.5-2.5) Alkaline Phosphatase 55 U/L (45-117) 49 U/L (45-117) Aspartate Amino Transf (AST/SGOT) 38 U/L (15-37) 43 U/L (15-37) Alanine Aminotransferase (ALT/SGPT) 40 U/L (10-53) 40 U/L (10-53) Total Bilirubin 1.4 MG/DL (0.2-1.0) 1.2 MG/DL (0.2-1.0) Sodium Level 136 MEQ/L (136-145) 140 MEQ/L (136-145) Potassium Level 3.4 MEQ/L (3.5-5.1) 3.3 MEQ/L (3.5-5.1) Chloride Level 99 MEQ/L (98-107) 104 MEQ/L (98-107) Carbon Dioxide Level 29.4 MEQ/L (21.0-32.0) 26.8 MEQ/L (21.0-32.0) Anion Gap 8 MEQ/L (5-15) 9 MEQ/L (5-15) Estimat Glomerular Filtration Rate 50 ML/MIN (>89) 63 ML/MIN (>89) Ammonia LESS THAN 10 MCMOL/L Troponin I LESS THAN 0.02 NG/ML Lipase 190 U/L (73-393) Thyroid Stimulating Hormone 3rd Gen 0.369 uIU/ML (0.358-3.740) Urine Color YELLOW (YELLW/STRAW) Urine Turbidity HAZY (CLEAR) Urine pH 5.5 (5.0-8.5) Urine Specific [place] 1.013 (1.002-1.035) Urine Protein TRACE mg/dL (NEG-TRACE) Urine Glucose (UA) NEG mg/dL (NEG) Urine Ketones 10 mg/dL (NEG) Urine Occult Blood SMALL (NEG) Urine Nitrite POS (NEG) Urine Bilirubin NEG (NEG) Urine Urobilinogen LESS THAN 2.0 MG/DL (LESS Urine Leukocyte Esterase LARGE (NEG) Urine RBC 5 /hpf (0-3) Urine WBC 70 /hpf (0-5) Urine WBC Clumps MANY (NONE) Urine Squamous Epithelial Cells 10 /hpf (0-5) Urine Bacteria MANY /hpf (NONE) Urine Mucus FEW /lpf (OCC) Microscopic Urinalysis Comment CULTURE INDICATED Direct Bilirubin 0.3 MG/DL (0.0-0.2) Indirect Bilirubin 0.9 MG/DL (0.0-0.8) . Result Diagram: 11/07/179 11/07/179 Microbiology Microbiology Date/Time Source Procedure Growth Status 11/06/17 20:00 Urine Clean Catch Urine Culture - Preliminary Gram Negative Jose Resulted . Imaging Last Impressions Head Magnetic Resonance Angiography 11/07/17 0000 Signed Impressions: Service Date/Time: Tuesday, November 07, 2017 12:59 - CONCLUSION: There is evidence of some blood volume in the new enhancing nodule adjacent to the primary tumor. Los Navarro MD Brain MRI 11/07/17 Signed Impressions: Service Date/Time: Tuesday, November 07, 2017 12:59 - CONCLUSION: The dominant mass in the right parietal lobe has decreased in size slightly, but there is evidence of recurrent tumor with enhancement along the biopsy tract and a new 7 mm enhancing nodule adjacent to the superior lateral margin of the residual mass. Decrease in the amount of surrounding edema when compared to May 2017. Los Navarro MD Head CT 11/06/171925 Signed Impressions: Service Date/Time: Monday, November 06, 2017 20:53 - CONCLUSION: 1. Prior right craniotomy with encephalomalacia in the operative bed and some punctate calcifications. No current mass effect or shift. There is no recent infarct identified. Jagdish Castillo MD Chest X-Ray 11/06/171925 Signed Impressions: Service Date/Time: Monday, November 06, 2017 19:39 - CONCLUSION: 1. Elevated right hemidiaphragm. Basilar atelectasis. Jagdish Castillo MD . Patient/Family Conference Present at Family Conference: Patient/. . Family Conference Time (mins): 55 Family Conference Location: Bedside Issues Discussed: * Palliative care role, purpose, approach * Additional medical, psychosocial, and spiritual history * Patients general health, functional status, and cognitive changes in the months leading up to the current hospitalization * Patient/family understanding of the current medical problems * Patient/family understanding of prognosis * Patients goals of care as best understood from advance directives and/or conversations and/or values * Current medical treatment options and benefits/burdens of those options * Likely scenarios comparing ongoing aggressive care with a transition to comfort measures only * Questions answered to the best of my ability * Palliative care contact information provided . Assessment and Plan Disease Oriented Problem List: (1) Glioblastoma multiforme Comment: s/p right craniotomy; radiation therapy; chemotherapy . (2) Urinary tract infection Comment: Growing gram neg jose. . (3) Hypothyroidism (4) Osteoarthritis (5) Deep venous thrombosis Comment: Has been on Pradaxa . Symptom Scale: (1) Pain 0-10 Scale: 0 Comment: Patient has been remarkably free of pain during her illness. . (2) Weakness 0-10 Scale: 10 Comment: Was unable to bear weight and ambulate at time of admission. . (3) Lethargy 0-10 Scale: 10 Comment: Sleeping over 20 hours /day. . (4) Fatigue 0-10 Scale: 10 Pertinent Non-Medical Issues Psychosocial: Patient has been living at home with her spouse who is her primary caregiver. Her 2 children live out of state. Spiritual: Zoroastrianism and spirituality are important parts of her life. She is [facility]. Her is a retired health physics technician. Legal: Living will and healthcare surrogate are completed and on chart. They are dated 08/23/2009. Her is her healthcare surrogate. Ethical issues impacting care: Patient appears cognitively intact but is quite lethargic. . Important Contacts Sandro Newman (spouse and health care surrogate) [phone] Dilip Newman (son) [place], [place] [phone] . Prognosis Patient has a glioblastoma now s/p craniotomy; radiation therapy; chemo. Imaging showing new tumor development in spite of treatment. Patient is very lethargic and sleeping 20 hours / day and growing weaker. She is probably not benefitting from ongoing aggressive cancer -directed treatments. Pt and would benefit from hospice services. Anticipate in weeks to a few months. . Code Status: No Code Plan == Code Status: NO CODE. Patient and confirmed desire for NO CODE status during our conversation at bedside on 11/07/17. == Decision Making: Patient is cognitively intact, but very lethargic. I would recommend that all decisions be "shared decision" between patient while wakeful and her . If/when patient is incapacitated, her designated health care surrogate is her spouse -- Sandro Newman. == Goals of medical treatment: Patient and do not want to continue with aggressive care if Dr. Frank does not think it is going to improve her quality of life. Given her current performance status and her MRI results of , Dr. Frank does not think the benefits of ongoing aggressive care will outweigh the burdens. We will plan on discussing this opinion on 11/08/17 with patient and . Anticipate a hospice consult at that time. == Symptoms. * Pain: Patient has been remarkably pain free. Except for some recent dysuria , there has been very little discomfort. * Lethargy/fatigue: Patient has been sleeping easily up to 20 hours a day. She has had extreme fatigue since her craniotomy and it has grown worse. Unclear, at this point, if the increased lethargy is secondary to her UTI or is a symptom of disease progression. Would consider adding systemic steroids, but spouse reports the patient had a very adverse reaction to steroids ( including suicidal ideation) even at very low doses. PCP had prescribed methylphenidate, but pt did not take it. * Weakness: Patient was unable to walk in the day or so prior to this admission. Unclear, at this point, if the increased weakness is secondary to her UTI or is a symptom of disease progression. == Case discussed with Dr. Frank by phone. He will discuss results of MRI report with patient/ tomorrow and likely recommend foregoing further cancer directed care. He will likely recommend hospice. == I will also meet with patient/ on 11/08/17 and if they agree with recommendation of Dr. Frank will place hospice consult. == Discussed anti-coagulation with Dr. Frank given history of falls. He feels that if patient enrolls with hospice that anti-coagulation should be discontinued. == If patient enrolls with hospice, based on the exam of 11/07/17, she would not qualify for care center placement. If patient is still unable to walk at time of hospital discharge, they will need additional help at home. == Palliative care will continue to follow during course of hospitalization to assist with symptom management and to further clarify goals of medical treatment as the clinical course evolves. . Time Spent Total Floor Time (mins): 95 (Total fluoroscopy time included chart review; patient examination; telephone conversation with medical oncology; review of advance directive; and above-referenced bedside family conference.) Face to Face Time (mins): 60 >50% Counseling/Coord of Care: Yes Thank you for the opportunity to participate in the care of Ms. Newman. . Attestation To help prompt me to consider important information that might be impacting today's encounter and assessment, information from prior notes written by myself or my colleagues may have been "brought forward" into today's note. My signature on this note, however, is an attestation that I personally performed the exam, history, and/or decision-making noted today, and, unless otherwise indicated, the interactions with patient, family, and staff as well as the review of records all occurred today. I also attest that the listed assessment and stated plan reflect my best clinical judgment today based on the combination of historical information, prior notes, and today's exam/ interactions. When time spent is documented, it refers only to time spent today by the signer, or if indicated, combined time spent today by collaborating physician/nurse practitioner. . Ace Starr MD Nov 07, 2017 18:22
[2017-11-07 20:11] VITALS: BP 110/57; PULSE 85; RESP 18; TEMP 98.1; O2SAT 95
[2017-11-07 23:01] VITALS: BP 122/65; PULSE 78; RESP 17; TEMP 98.1; O2SAT 94
[2017-11-08] MEDS: SODIUM CHLOR 0.9% 1000 ML INJ 1,000 ML IV SCH ×3 (01:45→15:21)
[2017-11-08 03:12] VITALS: BP 125/61; PULSE 79; RESP 17; TEMP 98.5; O2SAT 94
[2017-11-08] MEDS: cefTRIAXone INJ 1,000 MG in SODIUM CHLORIDE 0.9% INJ 100 ML IV SCH (03:41)
[2017-11-08 06:12] LABS: AUTOMATED NEUTROPHIL # 3.9 TH/MM3 (1.8-7.7); BASOPHIL % 0.4 % (0.0-2.0); EOSINOPHIL # 0.3 TH/MM3 (0-0.4); EOSINOPHIL % 4.3 % (0.0-4.0); HEMATOCRIT 39.6 % (35.0-46.0); HEMOGLOBIN 13.7 GM/DL (11.6-15.3); LYMPH % 22.3 % (9.0-44.0); LYMPHOCYTE # 1.5 TH/MM3 (1.0-4.8); MEAN CELL VOLUME 88.3 FL (80.0-100.0); MEAN CORPUSCULAR HEMOGLOBIN 30.5 PG (27.0-34.0); MEAN CORPUSCULAR HGB CONC 34.5 % (32.0-36.0); MEAN PLATELET VOLUME 8.5 FL (7.0-11.0); MONO % 13.4 % (0.0-8.0); MONOCYTE # 0.9 TH/MM3 (0-0.9); NEUT % 59.6 % (16.0-70.0); PLATELET COUNT 174 TH/MM3 (150-450); RED BLOOD COUNT 4.49 MIL/MM3 (4.00-5.30); RED CELL DISTRIBUTION WIDTH 16.2 % (11.6-17.2); WHITE BLOOD COUNT 6.6 TH/MM3 (4.0-11.0)
[2017-11-08 07:03] LABS: ALBUMIN 3.3 GM/DL (3.4-5.0); BICARBONATE 29.4 MEQ/L (21.0-32.0); CALCIUM 8.4 MG/DL (8.5-10.1); CREATININE 0.81 MG/DL (0.50-1.00); MAGNESIUM 1.8 MG/DL (1.5-2.5); PHOSPHORUS 3.4 MG/DL (2.5-4.9)
[2017-11-08 07:14] VITALS: BP 123/60; PULSE 69; RESP 16; TEMP 97.7; O2SAT 95
[2017-11-08] MEDS ORDERED: MAGNESIUM SULFATE 1 GM PREMIX 100 ML IV ONE (08:00)
[2017-11-08] MEDS ORDERED: POTASSIUM CHLORIDE 20 MEQ CONTROLLED RELEASE TAB PO ONE (08:00)
[2017-11-08] MEDS: PANTOPRAZOLE SOD 40 MG DELAYED RELEASE TAB PO SCH (08:29)
[2017-11-08] MEDS: BUMETANIDE 1 MG TAB PO SCH (08:29)
[2017-11-08] MEDS: levETIRAcetam 500 MG TAB PO SCH ×2 (08:29→21:01)
[2017-11-08] MEDS: DABIGATRAN ETEXILATE 150 MG CAP PO SCH (08:29)
[2017-11-08] MEDS: SODIUM CHLORIDE 0.9% FLUSH 10 ML FLUSH IV FLUSH SCH ×2 (08:30→21:00)
[2017-11-08] MEDS: DOCUSATE SODIUM 50 MG/SENNA 8.6 MG TAB PO SCH ×2 (08:30→21:01)
--- NOTE | 2017-11-08 09:19 | HHI.PR ---
Subjective Remarks Patient says she is feeling all right this morning. Denies any pain. Objective Vital Signs Date Time Temp Pulse Resp B/P (MAP) Pulse Ox O2 Delivery O2 Flow Rate FiO2 11/08/17 07:14 97.7 69 16 123/60 (81) 95 11/08/17 03:12 98.5 79 17 125/61 (82) 94 11/07/17 23:01 98.1 78 17 122/65 (84) 94 11/07/17 20:11 98.1 85 18 110/57 (74) 95 11/07/17 16:11 98.2 92 12 129/75 (93) 95 11/07/17 11:23 98.3 78 12 118/56 (76) 95 I/O 11/07/17 11/07/17 11/07/17 11/08/17 11/08/17 11/08/17 07:00 15:00 23:00 07:00 15:00 23:00 Intake Total 1000 ml Output Total 850 ml Balance 150 ml Intake IV Total 1000 ml Output Urine Total 850 ml # Voids 4 Result Diagram: 11/08/17 0501 11/08/17 0501 Objective Remarks GENERAL: Patient sitting up in bed. Appears comfortable. SKIN: Warm and dry. HEAD: Normocephalic. EYES: No scleral icterus. No injection or drainage. NECK: Supple, trachea midline. No JVD. CARDIOVASCULAR: Regular rate and rhythm without murmurs, gallops, or rubs. RESPIRATORY: Breath sounds equal bilaterally. No accessory muscle use. GASTROINTESTINAL: Abdomen soft, non-tender, nondistended. MUSCULOSKELETAL: No cyanosis, or edema. BACK: Nontender without obvious deformity. No CVA tenderness. A/P Assessment and Plan //Progressive weakness Likely secondary to chemotherapy received last Sunday Oncology consulted, Dr. Frank, appreciate recommendations CT of the head shows prior right craniotomy without current mass effect or shift PT recommends rehab. = MRI reviewed. Oncology following. Appreciate assistance. //Glioblastoma Continue Keppra for seizure prophylaxis Appreciate oncology input //Left lower extremity DVT Continue home Pradaxa //Urinary tract infection UA consistent with urinary tract infection despite 10 squamous epithelial cells Urine culture pending Rocephin = 4/5. Gram-negative irene. Follow-up sensitivities. //Hypokalemia. = 4/5. =2.5. Replace. Stop Bumex. Continue to monitor FEN Regular diet Ns at 100 cc/hr Electrolytes: Status post oral potassium repletion, monitor BMP Pradaxa Discharge Planning Patient will need to go to rehab Pending culture sensitivities Severe hypokalemia 2.5. Will need repeat Marco Meyer MD Nov 08, 2017 09:19
[2017-11-08] MEDS: POTASSIUM CHLOR 20 MEQ PREMIX 100 ML IV SCH ×2 (10:17→12:19)
[2017-11-08 10:56] VITALS: BP 123/83; PULSE 77; RESP 16; TEMP 98.6; O2SAT 95
--- NOTE | 2017-11-08 11:33 | PD.ONC.PN ---
Subjective Subjective Remarks Afebrile overnight. Patient resting in bed. at bedside. They are waiting to talk with hospice. She is comfortable and in nad. Objective Data Date Time Temp Pulse Resp B/P (MAP) Pulse Ox O2 Delivery O2 Flow Rate FiO2 11/08/17 10:56 98.6 77 16 123/83 (96) 95 11/08/17 07:14 97.7 69 16 123/60 (81) 95 11/08/17 03:12 98.5 79 17 125/61 (82) 94 11/07/17 23:01 98.1 78 17 122/65 (84) 94 11/07/17 20:11 98.1 85 18 110/57 (74) 95 11/07/17 16:11 98.2 92 12 129/75 (93) 95 11/08/17 11/08/17 11/08/17 07:00 15:00 23:00 Intake Total 100 ml Balance 100 ml Result Diagram: 11/08/17 0501 11/08/17 0501 Laboratory Results Laboratory Tests Test 11/08/17 05:01 White Blood Count 6.6 TH/MM3 Red Blood Count 4.49 MIL/MM3 Hemoglobin 13.7 GM/DL Hematocrit 39.6 % Mean Corpuscular Volume 88.3 FL Mean Corpuscular Hemoglobin 30.5 PG Mean Corpuscular Hemoglobin Concent 34.5 % Red Cell Distribution Width 16.2 % Platelet Count 174 TH/MM3 Mean Platelet Volume 8.5 FL Neutrophils (%) (Auto) 59.6 % Lymphocytes (%) (Auto) 22.3 % Monocytes (%) (Auto) 13.4 % Eosinophils (%) (Auto) 4.3 % Basophils (%) (Auto) 0.4 % Neutrophils # (Auto) 3.9 TH/MM3 Lymphocytes # (Auto) 1.5 TH/MM3 Monocytes # (Auto) 0.9 TH/MM3 Eosinophils # (Auto) 0.3 TH/MM3 Basophils # (Auto) 0.0 TH/MM3 CBC Comment DIFF FINAL Differential Comment Blood Urea Nitrogen 8 MG/DL Creatinine 0.81 MG/DL Random Glucose 112 MG/DL Albumin 3.3 GM/DL Calcium Level 8.4 MG/DL Phosphorus Level 3.4 MG/DL Magnesium Level 1.8 MG/DL Sodium Level 144 MEQ/L Potassium Level 2.5 MEQ/L Chloride Level 104 MEQ/L Carbon Dioxide Level 29.4 MEQ/L Anion Gap 11 MEQ/L Estimat Glomerular Filtration Rate 68 ML/MIN Culture Results Microbiology Date/Time Source Procedure Growth Status 11/06/17 20:00 Urine Clean Catch Urine Culture - Preliminary Gram Negative Jose Resulted Administered Medications Medications (Trade) Dose Ordered Sig/Felipe Route PRN Reason Start Time Stop Time Status Last Admin Dose Admin Sodium Chloride 1,000 ml @ 100 mls/hr Q10H IV 11/06/17 19:45 11/08/17 03:41 Sodium Chloride (NS Flush) 2 ml BID IV FLUSH 11/07/17 09:00 11/07/17 21:54 Senna/Docusate Sodium (Miranda-Colace) 1 tab BID PO 11/07/17 09:00 11/07/17 21:54 Dabigatran (Pradaxa) 150 mg DAILY PO 11/07/17 09:00 11/08/17 08:29 Levetriacetam (Keppra) 500 mg BID PO 11/07/17 09:00 11/08/17 08:29 Pantoprazole Sodium (Protonix) 40 mg DAILY PO 11/07/17 09:00 11/08/17 08:29 Ceftriaxone Sodium 1000 mg/ Sodium Chloride 100 ml @ 200 mls/hr Q24H IV 11/07/17 04:00 11/08/17 03:41 Potassium Chloride 100 ml @ 50 mls/hr Q2H IV 11/08/17 09:00 11/08/17 12:59 11/08/17 10:17 Objective Remarks GENERAL: Elderly female, lying in bed resting. SKIN: Warm and dry. HEAD: Normocephalic. EYES: No injection or drainage. NECK: Supple, trachea midline. CARDIOVASCULAR: Regular rate and rhythm RESPIRATORY: Breath sounds equal bilaterally. No accessory muscle use. GASTROINTESTINAL: Abdomen soft, non-tender, nondistended. EXTREMITIES: No cyanosis NEUROLOGICAL: awake, lethargic. Assessment/Plan Problem List: (1) Glioblastoma multiforme ICD Codes: C71.9 - Malignant neoplasm of brain, unspecified Plan: --was diagnosed with a glioblastoma in May. had a right craniotomy with resection of about 80% of the tumor. (2) History of DVT (deep vein thrombosis) ICD Codes: Z86.718 - Personal history of other venous thrombosis and embolism Plan: --on Pradaxa (3) Urinary tract infection ICD Codes: N39.0 - Urinary tract infection, site not specified Status: Chronic Plan: --on Rocephin Assessment 77y/o female with glioblastoma, admitted with increased weakness. h.o Glioblastoma multiforme. Left lower extremity deep venous thrombosis. Hypothyroidism Osteoarthritis. Plan 1. consult hospice for information gathering purposes for . 2. continue antibiotics 3. continue Pradaxa. Attending Statement The exam, history, and the medical decision-making described in the above note were completed with the assistance of the mid-level provider. I reviewed and agree with the findings presented. I attest that I had a [id number] encounter with the patient on the same day, and personally performed and documented my assessment and findings in the medical record. Feeling better. No headache. Discussed with pt and her over the phone. Reviewed MRI result with them. MRI showed progression of disease with new enhancing nodule adjacent to the primary mass. Pt's performance status is declining. She is weaker and fallen several times. Her is overwhelmed and feel that he is not able to take care of her if she is not able to ambulate. I have extensive discussion with them. I told them that her prognosis is poor and the disease is not curable. Chemotherapy may extend her survival by a few months but it may weaken her further due to the side effects. We discussed hospice care and they are agreeable to talk to hospice. Alaina Miller Nov 08, 2017 11:33 Osvaldo Frank MD Nov 08, 2017 13:31
[2017-11-08 17:51] VITALS: BP 130/74; PULSE 90; RESP 12; TEMP 99.1; O2SAT 93
[2017-11-08 20:00] VITALS: BP 126/64; PULSE 88; RESP 20; TEMP 97.5; O2SAT 96
--- NOTE | 2017-11-08 20:16 | HHI.HCPN ---
Reason for visit a. To assist with evaluation and management of symptoms including: lethargy ; dysuria; decreased appetite b. To assist medical decision maker(s) with: better understanding of current medical conditions; weighing benefits/burdens of medical treatment options; making medical treatment decisions. . Subjective/Interval History Ms. Newman remains quite lethargic at time of my visit. She awakens to voice / exam and can answer questions after long pauses. Denies pain/sob. Denies dysuria. Eating very small amounts. Vital signs have been stable. Urine C&S growing out Enterobacter. has spoken with Dr. Frank and there is agreement NOT to go forward with additional chemotherapy. Patient and appear relieved. wants to bring patient home but indicates he won't be able to cope if she is unable to get to the bathroom. Hospice has been consulted. . Family/friend interactions Spoke with patient and at bedside regarding options for care going forward. . Advance Directives Living Will: Copy in medical record Health Care Surrogate: Copy in medical record Durable Power of Erisa Attorney: Never completed Advance Directive Specifics Date completed: Living will and health care surrogate designation were completed on 08/23/2009. . Health Care Surrogate(s): Designated health care surrogate is the patient's spouse -- Sandro Newman. . Documented care wishes: Patient's living will is a typical [place] living will indicating that she would NOT want life prolonging measures should she be determined to have an end stage condition, terminal illness, or persistent vegetative state. . Objective Vital Signs Date Time Temp Pulse Resp B/P (MAP) Pulse Ox O2 Delivery O2 Flow Rate FiO2 11/08/17 17:51 99.1 90 12 130/74 (92) 93 11/08/17 10:56 98.6 77 16 123/83 (96) 95 11/08/17 07:14 97.7 69 16 123/60 (81) 95 11/08/17 03:12 98.5 79 17 125/61 (82) 94 11/07/17 23:01 98.1 78 17 122/65 (84) 94 11/07/17 20:11 98.1 85 18 110/57 (74) 95 . Physical Exam CONSTITUTIONAL/GENERAL: This is a pale, adequately nourished patient, in no apparent distress.She is very lethargic and drifts off to sleep even while trying to answer a question. Able to smile. Generalized weakness. TUBES/LINES/DRAINS: Peripheral IV; external urine collection device; SKIN: No jaundice, rashes.. Skin tear/abrasion left elbow. Skin temperature appropriate. Not diaphoretic. EYES: Pupils equal and round. Extraocular motions intact. No scleral icterus. No injection or drainage. Fundi not examined. NECK: Trachea midline. CARDIOVASCULAR: Regular rate and rhythm without murmurs, gallops, or rubs. No JVD. RESPIRATORY/CHEST: Symmetric, unlabored respirations. Clear to auscultation. Breath sounds equal bilaterally. No wheezes, rales, or rhonchi. GASTROINTESTINAL: Abdomen soft, non-tender, nondistended. No hepato-splenomegaly , or palpable masses. No guarding. Bowel sounds present. GENITOURINARY: Without palpable bladder distension. MUSCULOSKELETAL: Extremities without clubbing, cyanosis, or edema. LYMPHATICS: Not examined NEUROLOGICAL: Lethargic, but awakens with voice and stimulation. Easily drifts back to sleep. Answers questions appropriately when awakened. Motor and sensory grossly within normal limits. Follows commands. Moves all extremities. PSYCHIATRIC: No obvious anxiety/depression. No apparent hallucinations or other psychotic thought process. . Diagnostic Tests Laboratory Laboratory Tests Test 11/06/17 19:44 11/06/17 20:00 11/07/17 04:29 11/08/17 05:01 White Blood Count 5.6 TH/MM3 (4.0-11.0) 5.3 TH/MM3 (4.0-11.0) 6.6 TH/MM3 (4.0-11.0) Red Blood Count 4.53 MIL/MM3 (4.00-5.30) 4.21 MIL/MM3 (4.00-5.30) 4.49 MIL/MM3 (4.00-5.30) Hemoglobin 13.6 GM/DL (11.6-15.3) 12.9 GM/DL (11.6-15.3) 13.7 GM/DL (11.6-15.3) Hematocrit 39.3 % (35.0-46.0) 37.2 % (35.0-46.0) 39.6 % (35.0-46.0) Mean Corpuscular Volume 86.8 FL (80.0-100.0) 88.5 FL (80.0-100.0) 88.3 FL (80.0-100.0) Mean Corpuscular Hemoglobin 30.1 PG (27.0-34.0) 30.7 PG (27.0-34.0) 30.5 PG (27.0-34.0) Mean Corpuscular Hemoglobin Concent 34.7 % (32.0-36.0) 34.7 % (32.0-36.0) 34.5 % (32.0-36.0) Red Cell Distribution Width 16.1 % (11.6-17.2) 16.1 % (11.6-17.2) 16.2 % (11.6-17.2) Platelet Count 183 TH/MM3 (150-450) 164 TH/MM3 (150-450) 174 TH/MM3 (150-450) Mean Platelet Volume 8.1 FL (7.0-11.0) 8.6 FL (7.0-11.0) 8.5 FL (7.0-11.0) Neutrophils (%) (Auto) 48.8 % (16.0-70.0) 48.3 % (16.0-70.0) 59.6 % (16.0-70.0) Lymphocytes (%) (Auto) 29.5 % (9.0-44.0) 27.5 % (9.0-44.0) 22.3 % (9.0-44.0) Monocytes (%) (Auto) 15.0 % (0.0-8.0) 16.1 % (0.0-8.0) 13.4 % (0.0-8.0) Eosinophils (%) (Auto) 5.9 % (0.0-4.0) 7.3 % (0.0-4.0) 4.3 % (0.0-4.0) Basophils (%) (Auto) 0.8 % (0.0-2.0) 0.8 % (0.0-2.0) 0.4 % (0.0-2.0) Neutrophils # (Auto) 2.7 TH/MM3 (1.8-7.7) 2.5 TH/MM3 (1.8-7.7) 3.9 TH/MM3 (1.8-7.7) Lymphocytes # (Auto) 1.7 TH/MM3 (1.0-4.8) 1.4 TH/MM3 (1.0-4.8) 1.5 TH/MM3 (1.0-4.8) Monocytes # (Auto) 0.8 TH/MM3 (0-0.9) 0.8 TH/MM3 (0-0.9) 0.9 TH/MM3 (0-0.9) Eosinophils # (Auto) 0.3 TH/MM3 (0-0.4) 0.4 TH/MM3 (0-0.4) 0.3 TH/MM3 (0-0.4) Basophils # (Auto) 0.0 TH/MM3 (0-0.2) 0.0 TH/MM3 (0-0.2) 0.0 TH/MM3 (0-0.2) CBC Comment DIFF FINAL DIFF FINAL DIFF FINAL Differential Comment Prothrombin Time 12.8 SEC (9.8-11.6) Prothromb Time International Ratio 1.3 RATIO Activated Partial Thromboplast Time 36.9 SEC (24.3-30.1) Blood Urea Nitrogen 15 MG/DL (7-18) 11 MG/DL (7-18) 8 MG/DL (7-18) Creatinine 1.06 MG/DL (0.50-1.00) 0.87 MG/DL (0.50-1.00) 0.81 MG/DL (0.50-1.00) Random Glucose 139 MG/DL (74-106) 109 MG/DL (74-106) 112 MG/DL (74-106) Total Protein 6.2 GM/DL (6.4-8.2) 5.7 GM/DL (6.4-8.2) Albumin 3.5 GM/DL (3.4-5.0) 3.2 GM/DL (3.4-5.0) 3.3 GM/DL (3.4-5.0) Calcium Level 9.0 MG/DL (8.5-10.1) 8.6 MG/DL (8.5-10.1) 8.4 MG/DL (8.5-10.1) Magnesium Level 2.2 MG/DL (1.5-2.5) 1.8 MG/DL (1.5-2.5) Alkaline Phosphatase 55 U/L (45-117) 49 U/L (45-117) Aspartate Amino Transf (AST/SGOT) 38 U/L (15-37) 43 U/L (15-37) Alanine Aminotransferase (ALT/SGPT) 40 U/L (10-53) 40 U/L (10-53) Total Bilirubin 1.4 MG/DL (0.2-1.0) 1.2 MG/DL (0.2-1.0) Sodium Level 136 MEQ/L (136-145) 140 MEQ/L (136-145) 144 MEQ/L (136-145) Potassium Level 3.4 MEQ/L (3.5-5.1) 3.3 MEQ/L (3.5-5.1) 2.5 MEQ/L (3.5-5.1) Chloride Level 99 MEQ/L (98-107) 104 MEQ/L (98-107) 104 MEQ/L (98-107) Carbon Dioxide Level 29.4 MEQ/L (21.0-32.0) 26.8 MEQ/L (21.0-32.0) 29.4 MEQ/L (21.0-32.0) Anion Gap 8 MEQ/L (5-15) 9 MEQ/L (5-15) 11 MEQ/L (5-15) Estimat Glomerular Filtration Rate 50 ML/MIN (>89) 63 ML/MIN (>89) 68 ML/MIN (>89) Ammonia LESS THAN 10 MCMOL/L Troponin I LESS THAN 0.02 NG/ML Lipase 190 U/L (73-393) Thyroid Stimulating Hormone 3rd Gen 0.369 uIU/ML (0.358-3.740) Urine Color YELLOW (YELLW/STRAW) Urine Turbidity HAZY (CLEAR) Urine pH 5.5 (5.0-8.5) Urine Specific [place] 1.013 (1.002-1.035) Urine Protein TRACE mg/dL (NEG-TRACE) Urine Glucose (UA) NEG mg/dL (NEG) Urine Ketones 10 mg/dL (NEG) Urine Occult Blood SMALL (NEG) Urine Nitrite POS (NEG) Urine Bilirubin NEG (NEG) Urine Urobilinogen LESS THAN 2.0 MG/DL (LESS Urine Leukocyte Esterase LARGE (NEG) Urine RBC 5 /hpf (0-3) Urine WBC 70 /hpf (0-5) Urine WBC Clumps MANY (NONE) Urine Squamous Epithelial Cells 10 /hpf (0-5) Urine Bacteria MANY /hpf (NONE) Urine Mucus FEW /lpf (OCC) Microscopic Urinalysis Comment CULTURE INDICATED Direct Bilirubin 0.3 MG/DL (0.0-0.2) Indirect Bilirubin 0.9 MG/DL (0.0-0.8) Phosphorus Level 3.4 MG/DL (2.5-4.9) Test 11/08/17 12:02 Potassium Level 3.0 MEQ/L (3.5-5.1) . Result Diagram: 11/08/17 0501 11/08/17 1202 Microbiology Microbiology Date/Time Source Procedure Growth Status 11/06/17 20:00 Urine Clean Catch Urine Culture - Final Enterobacter Aerogenes Complete . Imaging Last Impressions Head Magnetic Resonance Angiography 11/07/17 0000 Signed Impressions: Service Date/Time: Tuesday, November 07, 2017 12:59 - CONCLUSION: There is evidence of some blood volume in the new enhancing nodule adjacent to the primary tumor. Los Navarro MD Brain MRI 11/07/17 0000 Signed Impressions: Service Date/Time: Tuesday, November 07, 2017 12:59 - CONCLUSION: The dominant mass in the right parietal lobe has decreased in size slightly, but there is evidence of recurrent tumor with enhancement along the biopsy tract and a new 7 mm enhancing nodule adjacent to the superior lateral margin of the residual mass. Decrease in the amount of surrounding edema when compared to May 2017. Los Navarro MD Head CT 11/06/171925 Signed Impressions: Service Date/Time: Monday, November 06, 2017 20:53 - CONCLUSION: 1. Prior right craniotomy with encephalomalacia in the operative bed and some punctate calcifications. No current mass effect or shift. There is no recent infarct identified. Jagdish Castillo MD Chest X-Ray 11/06/171925 Signed Impressions: Service Date/Time: Monday, November 06, 2017 19:39 - CONCLUSION: 1. Elevated right hemidiaphragm. Basilar atelectasis. Jagdish Castillo MD . Assessment and Plan Disease Oriented Problem List: (1) Glioblastoma multiforme Comment: s/p right craniotomy; radiation therapy; chemotherapy . (2) Urinary tract infection Comment: Growing gram neg irene. . (3) Hypothyroidism (4) Osteoarthritis (5) Deep venous thrombosis Comment: Has been on Pradaxa . Symptom Scale: (1) Pain 0-10 Scale: 0 Comment: Patient has been remarkably free of pain during her illness. . (2) Weakness 0-10 Scale: 10 Comment: Was unable to bear weight and ambulate at time of admission. . (3) Lethargy 0-10 Scale: 10 Comment: Sleeping over 20 hours /day. . (4) Fatigue 0-10 Scale: 10 Pertinent Non-Medical Issues Psychosocial: Patient has been living at home with her spouse who is her primary caregiver. Her 2 children live out of state. Spiritual: Caodaism and spirituality are important parts of her life. She is [facility] [employer]. Her is a retired hockey player. Legal: Living will and healthcare surrogate are completed and on chart. They are dated 08/23/2009. Her is her healthcare surrogate. Ethical issues impacting care: Patient appears cognitively intact but is quite lethargic. . Important Contacts Sandro Newman (spouse and health care surrogate) [phone] Dilip Newman (son) [place], [place] [phone] . Prognosis Patient has a glioblastoma now s/p craniotomy; radiation therapy; chemo. Imaging showing new tumor development in spite of treatment. Patient is very lethargic and sleeping 20 hours / day and growing weaker. She is probably not benefitting from ongoing aggressive cancer -directed treatments. Pt and would benefit from hospice services. Anticipate in weeks to a few months. . Code Status: No Code Plan == Code Status: NO CODE. Patient and confirmed desire for NO CODE status during our conversation at bedside on 11/07/17. == Decision Making: Patient is cognitively intact, but very lethargic. I would recommend that all decisions be "shared decision" between patient while wakeful and her . If/when patient is incapacitated, her designated health care surrogate is her spouse -- Sandro Newman. == Goals of medical treatment: Patient and have decided NOT to go forward with additional cancer directed treatments. Considering hospice care. == Symptoms. * Pain: Patient has been remarkably pain free. Except for some recent dysuria , there has been very little discomfort. * Lethargy/fatigue: Patient has been sleeping easily up to 20 hours a day. She has had extreme fatigue since her craniotomy and it has grown worse. Unclear, at this point, if the increased lethargy is secondary to her UTI or is a symptom of disease progression. Would consider adding systemic steroids, but spouse reports the patient had a very adverse reaction to steroids ( including suicidal ideation) even at very low doses. PCP had prescribed methylphenidate, but pt did not take it. * Weakness: Patient was unable to walk in the day or so prior to this admission. Unclear, at this point, if the increased weakness is secondary to her UTI or is a symptom of disease progression. == Discussed anti-coagulation with Dr. Frank given history of falls. He feels that if patient enrolls with hospice that anti-coagulation should be discontinued. == Hospice is probably best options given goals. will still need some additional help at home. Patient has very little rehab potential so I don't think she would benefit from skilled care unless she surprisingly perks up after another day of antibiotic treatment for her UTI. == If patient enrolls with hospice, based on the exam of 11/07/17, she would not qualify for care center placement. If patient is still unable to walk at time of hospital discharge, they will need additional help at home. == Palliative care will continue to follow during course of hospitalization to assist with symptom management and to further clarify goals of medical treatment as the clinical course evolves. . Attestation To help prompt me to consider important information that might be impacting today's encounter and assessment, information from prior notes written by myself or my colleagues may have been "brought forward" into today's note. My signature on this note, however, is an attestation that I personally performed the exam, history, and/or decision-making noted today, and, unless otherwise indicated, the interactions with patient, family, and staff as well as the review of records all occurred today. I also attest that the listed assessment and stated plan reflect my best clinical judgment today based on the combination of historical information, prior notes, and today's exam/ interactions. When time spent is documented, it refers only to time spent today by the signer, or if indicated, combined time spent today by collaborating physician/nurse practitioner. . Ace Starr MD Nov 08, 2017 20:16
[2017-11-09] VITALS (13 sets, daily range): BP systolic 135–152; BP diastolic 69–80; PULSE 84–99; RESP 16–22; TEMP 98.1–100; O2SAT 92–96
[2017-11-09] MEDS: SODIUM CHLOR 0.9% 1000 ML INJ 1,000 ML IV SCH ×3 (01:46→23:29)
[2017-11-09] MEDS: cefTRIAXone INJ 1,000 MG in SODIUM CHLORIDE 0.9% INJ 100 ML IV SCH (04:05)
--- NOTE | 2017-11-09 08:26 | PD.ONC.PN ---
Subjective Subjective Remarks Very weak. Denies headache, visual changes. Objective Data Date Time Temp Pulse Resp B/P (MAP) Pulse Ox O2 Delivery O2 Flow Rate FiO2 11/09/17 04:00 98.1 87 20 135/69 (91) 93 11/09/17 00:00 98.9 90 22 137/74 (95) 93 11/08/17 20:00 97.5 88 20 126/64 (84) 96 11/08/17 17:51 99.1 90 12 130/74 (92) 93 11/08/17 10:56 98.6 77 16 123/83 (96) 95 11/09/17 11/09/17 11/09/17 07:00 15:00 23:00 Intake Total 1000 ml Output Total 300 ml Balance 700 ml Result Diagram: 11/08/17 0501 11/08/17 1202 Laboratory Results Laboratory Tests Test 11/08/17 12:02 Potassium Level 3.0 MEQ/L Culture Results Microbiology Date/Time Source Procedure Growth Status 11/06/17 20:00 Urine Clean Catch Urine Culture - Final Enterobacter Aerogenes Complete Administered Medications Medications (Trade) Dose Ordered Sig/Felipe Route PRN Reason Start Time Stop Time Status Last Admin Dose Admin Sodium Chloride 1,000 ml @ 100 mls/hr Q10H IV 11/06/17 19:45 11/09/17 01:46 Sodium Chloride (NS Flush) 2 ml BID IV FLUSH 11/07/17 09:00 11/07/17 21:54 Senna/Docusate Sodium (Miranad-Colace) 1 tab BID PO 11/07/17 09:00 11/08/17 21:01 Dabigatran (Pradaxa) 150 mg DAILY PO 11/07/17 09:00 11/08/17 08:29 Levetriacetam (Keppra) 500 mg BID PO 11/07/17 09:00 11/08/17 21:01 Pantoprazole Sodium (Protonix) 40 mg DAILY PO 11/07/17 09:00 11/08/17 08:29 Ceftriaxone Sodium 1000 mg/ Sodium Chloride 100 ml @ 200 mls/hr Q24H IV 11/07/17 04:00 11/09/17 04:05 Objective Remarks GENERAL: Well-nourished, well-developed patient. Weak SKIN: Warm and dry. HEAD: Normocephalic. EYES: No scleral icterus. No injection or drainage. NECK: Supple, trachea midline. No JVD or lymphadenopathy. LYMPHATIC: No adenopathy. CARDIOVASCULAR: Regular rate and rhythm without murmurs. RESPIRATORY: Breath sounds equal bilaterally. No accessory muscle use. GASTROINTESTINAL: Abdomen soft, non-tender, nondistended. EXTREMITIES: No cyanosis, or edema. MUSCULOSKELETAL: Adequate muscle tone. BLE weakness NEUROLOGICAL: No obvious focal deficit. Awake, alert, and oriented x3. PSYCHIATRIC: Appropriate mood and affect; insight and judgment normal. Assessment/Plan Problem List: (1) Glioblastoma multiforme ICD Codes: C71.9 - Malignant neoplasm of brain, unspecified Plan: --MRI with perfusion showed new enhancing nodule next to the main mass c/ w progression of disease. Edema has decreased. --was diagnosed with a glioblastoma in May. had a right craniotomy with resection of about 80% of the tumor. (2) History of DVT (deep vein thrombosis) ICD Codes: Z86.718 - Personal history of other venous thrombosis and embolism Plan: --on Pradaxa (3) Urinary tract infection ICD Codes: N39.0 - Urinary tract infection, site not specified Status: Chronic Plan: --Cx + enterobacter. --on Rocephin Assessment 77y/o female with glioblastoma, admitted with increased weakness. h.o Glioblastoma multiforme. Left lower extremity deep venous thrombosis. Hypothyroidism Osteoarthritis. Plan 1. Await hospice placement. 2. continue supportive care. Osvaldo Frank MD Nov 09, 2017 08:26
[2017-11-09] MEDS: DOCUSATE SODIUM 50 MG/SENNA 8.6 MG TAB PO SCH ×2 (09:00→22:00)
[2017-11-09] MEDS: SODIUM CHLORIDE 0.9% FLUSH 10 ML FLUSH IV FLUSH SCH ×2 (09:00→21:00)
[2017-11-09] MEDS: PANTOPRAZOLE SOD 40 MG DELAYED RELEASE TAB PO SCH (09:00)
[2017-11-09] MEDS: levETIRAcetam 500 MG TAB PO SCH ×2 (10:12→22:00)
[2017-11-09] MEDS: DABIGATRAN ETEXILATE 150 MG CAP PO SCH (10:14)
--- NOTE | 2017-11-09 10:15 | HHI.PR ---
Subjective Remarks 77-year-old female with a past medical history significant for glioblastoma and left lower extremity DVT anticoagulated on Pradaxa was brought to the emergency department by her for evaluation of progressive weakness over the last 24 hours. The patient is interviewed alone and states that she feels fine now. She is able to answer my questions slowly however cannot tell me exactly why she came to the emergency department. Per emergency room documentation, the patient's stated that she had a second round of double dose chemotherapy for her glioblastoma on Sunday. He reports that over the last week she has had a diminished appetite. Denies any vomiting or diarrhea. No chest pain or shortness of breath. No abdominal pain. Increasing weakness without lateralizing signs/symptoms. 4-5 Patient says she is feeling all right this morning. Denies any pain. 4-6 I discussed with her and case management and RN and oncology patient has been seen by palliative care Very lethargic today May need SNF with hospice I do not believe hospice is seen her yet today Continue current antibiotic treatment Objective Vitals Vital Signs Date Time Temp Pulse Resp B/P (MAP) Pulse Ox O2 Delivery O2 Flow Rate FiO2 11/09/17 08:30 84 16 152/77 (102) 94 11/09/17 04:00 98.1 87 20 135/69 (91) 93 11/09/17 00:00 98.9 90 22 137/74 (95) 93 11/08/17 20:00 97.5 88 20 126/64 (84) 96 11/08/17 17:51 99.1 90 12 130/74 (92) 93 11/08/17 10:56 98.6 77 16 123/83 (96) 95 I/O 11/08/17 11/08/17 11/08/17 11/09/17 11/09/17 11/09/17 07:00 15:00 23:00 07:00 15:00 23:00 Intake Total 200 ml 1100 ml 1000 ml Output Total 2000 ml 1450 ml 300 ml Balance -1800 ml -350 ml 700 ml Intake IV Total 200 ml 1100 ml 1000 ml Output Urine Total 2000 ml 1450 ml 300 ml Result Diagram: 11/08/17 0501 11/08/17 1202 Other Results Laboratory Tests Test 11/06/17 19:44 11/06/17 20:00 11/07/17 04:29 11/08/17 05:01 White Blood Count 5.6 TH/MM3 5.3 TH/MM3 6.6 TH/MM3 Red Blood Count 4.53 MIL/MM3 4.21 MIL/MM3 4.49 MIL/MM3 Hemoglobin 13.6 GM/DL 12.9 GM/DL 13.7 GM/DL Hematocrit 39.3 % 37.2 % 39.6 % Mean Corpuscular Volume 86.8 FL 88.5 FL 88.3 FL Mean Corpuscular Hemoglobin 30.1 PG 30.7 PG 30.5 PG Mean Corpuscular Hemoglobin Concent 34.7 % 34.7 % 34.5 % Red Cell Distribution Width 16.1 % 16.1 % 16.2 % Platelet Count 183 TH/MM3 164 TH/MM3 174 TH/MM3 Mean Platelet Volume 8.1 FL 8.6 FL 8.5 FL Neutrophils (%) (Auto) 48.8 % 48.3 % 59.6 % Lymphocytes (%) (Auto) 29.5 % 27.5 % 22.3 % Monocytes (%) (Auto) 15.0 % 16.1 % 13.4 % Eosinophils (%) (Auto) 5.9 % 7.3 % 4.3 % Basophils (%) (Auto) 0.8 % 0.8 % 0.4 % Neutrophils # (Auto) 2.7 TH/MM3 2.5 TH/MM3 3.9 TH/MM3 Lymphocytes # (Auto) 1.7 TH/MM3 1.4 TH/MM3 1.5 TH/MM3 Monocytes # (Auto) 0.8 TH/MM3 0.8 TH/MM3 0.9 TH/MM3 Eosinophils # (Auto) 0.3 TH/MM3 0.4 TH/MM3 0.3 TH/MM3 Basophils # (Auto) 0.0 TH/MM3 0.0 TH/MM3 0.0 TH/MM3 CBC Comment DIFF FINAL DIFF FINAL DIFF FINAL Differential Comment Prothrombin Time 12.8 SEC Prothromb Time International Ratio 1.3 RATIO Activated Partial Thromboplast Time 36.9 SEC Blood Urea Nitrogen 15 MG/DL 11 MG/DL 8 MG/DL Creatinine 1.06 MG/DL 0.87 MG/DL 0.81 MG/DL Random Glucose 139 MG/DL 109 MG/DL 112 MG/DL Total Protein 6.2 GM/DL 5.7 GM/DL Albumin 3.5 GM/DL 3.2 GM/DL 3.3 GM/DL Calcium Level 9.0 MG/DL 8.6 MG/DL 8.4 MG/DL Magnesium Level 2.2 MG/DL 1.8 MG/DL Alkaline Phosphatase 55 U/L 49 U/L Aspartate Amino Transf (AST/SGOT) 38 U/L 43 U/L Alanine Aminotransferase (ALT/SGPT) 40 U/L 40 U/L Total Bilirubin 1.4 MG/DL 1.2 MG/DL Sodium Level 136 MEQ/L 140 MEQ/L 144 MEQ/L Potassium Level 3.4 MEQ/L 3.3 MEQ/L 2.5 MEQ/L Chloride Level 99 MEQ/L 104 MEQ/L 104 MEQ/L Carbon Dioxide Level 29.4 MEQ/L 26.8 MEQ/L 29.4 MEQ/L Anion Gap 8 MEQ/L 9 MEQ/L 11 MEQ/L Estimat Glomerular Filtration Rate 50 ML/MIN 63 ML/MIN 68 ML/MIN Ammonia LESS THAN 10 MCMOL/L Troponin I LESS THAN 0.02 NG/ML Lipase 190 U/L Thyroid Stimulating Hormone 3rd Gen 0.369 uIU/ML Urine Color YELLOW Urine Turbidity HAZY Urine pH 5.5 Urine Specific [place] 1.013 Urine Protein TRACE mg/dL Urine Glucose (UA) NEG mg/dL Urine Ketones 10 mg/dL Urine Occult Blood SMALL Urine Nitrite POS Urine Bilirubin NEG Urine Urobilinogen LESS THAN 2.0 MG/DL Urine Leukocyte Esterase LARGE Urine RBC 5 /hpf Urine WBC 70 /hpf Urine WBC Clumps MANY Urine Squamous Epithelial Cells 10 /hpf Urine Bacteria MANY /hpf Urine Mucus FEW /lpf Microscopic Urinalysis Comment CULTURE INDICATED Direct Bilirubin 0.3 MG/DL Indirect Bilirubin 0.9 MG/DL Phosphorus Level 3.4 MG/DL Test 11/08/17 12:02 Potassium Level 3.0 MEQ/L Imaging Last Impressions Head Magnetic Resonance Angiography 11/07/17 0000 Signed Impressions: Service Date/Time: Tuesday, November 07, 2017 12:59 - CONCLUSION: There is evidence of some blood volume in the new enhancing nodule adjacent to the primary tumor. Los Navarro MD Brain MRI 11/07/17 0000 Signed Impressions: Service Date/Time: Tuesday, November 07, 2017 12:59 - CONCLUSION: The dominant mass in the right parietal lobe has decreased in size slightly, but there is evidence of recurrent tumor with enhancement along the biopsy tract and a new 7 mm enhancing nodule adjacent to the superior lateral margin of the residual mass. Decrease in the amount of surrounding edema when compared to May 2017. Los Navarro MD Head CT [id number]/06/[id number] Signed Impressions: Service Date/Time: Monday, November 06, 2017 20:53 - CONCLUSION: 1. Prior right craniotomy with encephalomalacia in the operative bed and some punctate calcifications. No current mass effect or shift. There is no recent infarct identified. Jagdish Castillo MD Chest X-Ray [id number]/06/[id number] Signed Impressions: Service Date/Time: Monday, November 06, 2017 19:39 - CONCLUSION: 1. Elevated right hemidiaphragm. Basilar atelectasis. Jagdish Castillo MD Objective Remarks GENERAL: Currently very lethargic and sleeping did not wake up during my exam SKIN: Warm and dry. HEAD: Normocephalic. EYES: No scleral icterus. No injection or drainage. NECK: Supple, trachea midline. No JVD. CARDIOVASCULAR: Regular rate and rhythm without murmurs, gallops, or rubs. S1- S2 no S3 or S4 RESPIRATORY: Breath sounds equal bilaterally. No accessory muscle use. Lungs clear to auscultation bilaterally GASTROINTESTINAL: Abdomen soft, non-tender, nondistended. Soft nontender nondistended positive bowel sounds MUSCULOSKELETAL: No cyanosis, or edema. Lethargic not able to assess neuro exam insight and judgment is limited Mood and behavior is altered BACK: Nontender without obvious deformity. No CVA tenderness. Generalized weakness We will need SNF Procedures NONE Medications and IVs Current Medications Sodium Chloride 1,000 ml @ 100 mls/hr Q10H IV Last administered on 11/09/17at 01 :46; Start 11/06/17 at 19:45 Potassium Chloride (KCl) 10 meq ONCE ONCE PO Last administered on 11/06/17at 21: 05; Start 11/06/17 at 21:00; Stop 11/06/17 at 21:01; Status DC Sodium Chloride (NS Flush) 2 ml UNSCH PRN IV FLUSH FLUSH AFTER USING IV ACCESS ; Start 11/06/17 at 23:30 Sodium Chloride (NS Flush) 2 ml BID IV FLUSH Last administered on 11/07/17at 21: 54; Start 11/07/17 at 09:00 Ondansetron HCl (Zofran Inj) 4 mg Q6H PRN IVP NAUSEA OR VOMITING; Start at 23:30 Heparin Sodium (Porcine) (Heparin Inj) 5,000 units Q8H SQ ; Start 11/06/17 at 23: 30; Stop 11/06/17 at 23:30; Status DC Naloxone HCl (Narcan Inj) 0.4 mg UNSCH PRN IV PUSH SEE LABEL COMMENTS; Start at 23:30 Senna/Docusate Sodium (Miranda-Colace) 1 tab BID PO Last administered on 11/08/17 21:01; Start 11/07/17 at 09:00 Magnesium Hydroxide (Milk Of Magnesia Liq) 30 ml Q12H PRN PO Mild constipation ; Start 11/06/17 at 23:30 Sennosides (Senokot) 17.2 mg Q12H PRN PO Moderate constipation; Start 11/06/17 at 23:30 Bisacodyl (Dulcolax Supp) 10 mg DAILY PRN RECTAL SEVERE CONSITIPATION/ IF NPO ; Start 11/06/17 at 23:30 Lactulose (Lactulose Liq) 30 ml DAILY PRN PO SEVERE CONSITIPATION/ IF PO; Start 11/06/17 at 23:30 Morphine Sulfate (Morphine Inj) 4 mg Q3H PRN IV PUSH pain 6-10; Start 11/06/17 at 23:30 Bumetanide (Bumetanide) 2 mg DAILY PO Last administered on 11/08/17 08:29; Start 11/07/17 at 09:00; Stop 11/08/17 at 09:20; Status DC Dabigatran (Pradaxa) 150 mg DAILY PO Last administered on 11/08/17 08:29; Start 11/07/17 at 09:00 Levetriacetam (Keppra) 500 mg BID PO Last administered on 11/08/17 21:01; Start 11/07/17 at 09:00 Pantoprazole Sodium (Protonix) 40 mg DAILY PO Last administered on 11/08/17 08: 29; Start 11/07/17 at 09:00 Ceftriaxone Sodium 1000 mg/ Sodium Chloride 100 ml @ 200 mls/hr Q24H IV Last administered on 4/6/18at 04:05; Start 11/07/17 at 04:00 Potassium Chloride (KCl) 20 meq ONCE ONCE PO Last administered on 11/07/17 11: 29; Start 11/07/17 at 10:30; Stop 11/07/17 at 10:36; Status DC Gadodiamide (Omniscan Pf Inj) 20 ml STK-MED ONCE IVCONTRAST Last administered on 11/07/17 14:10; Start 11/07/17 at 14:10; Stop 11/07/17 at 14:11; Status DC Magnesium Sulfate/ Dextrose 100 ml @ 100 mls/hr ONCE ONCE IV Last administered on 11/08/17 08:29; Start 11/08/17 at 08:00; Stop 11/08/17 at 08:59; Status DC Potassium Chloride 100 ml @ 50 mls/hr Q2H IV Last administered on 11/08/17 12: 19; Start 11/08/17 at 09:00; Stop 11/08/17 at 12:59; Status DC Potassium Chloride (KCl) 60 meq ONCE ONCE PO Last administered on 11/08/17 08: 30; Start 11/08/17 at 08:00; Stop 11/08/17 at 08:01; Status DC A/P Assessment and Plan //Progressive weakness Likely secondary to chemotherapy received last Sunday Oncology consulted, Dr. Frank, appreciate recommendations CT of the head shows prior right craniotomy without current mass effect or shift PT recommends rehab. = MRI reviewed. Oncology following. Appreciate assistance. //Glioblastoma Continue Keppra for seizure prophylaxis Appreciate oncology input //Left lower extremity DVT Continue home Pradaxa //Urinary tract infection UA consistent with urinary tract infection despite 10 squamous epithelial cells Urine culture pending Rocephin = 11/08. Gram-negative irene. Follow-up sensitivities. //Hypokalemia. = 11/08. =2.5. Replace. Stop Bumex. Continue to monitor We will replace Check a.m. labs Family to meet with hospice to get more information FEN Regular diet Ns at 100 cc/hr Electrolytes: Status post oral potassium repletion, monitor BMP Pradaxa Discharge Planning Pending improvement with possible SNF discharge Melvin Whitfield DO Nov 09, 2017 10:15
[2017-11-09 10:54] LABS: AUTOMATED NEUTROPHIL # 4.7 TH/MM3 (1.8-7.7); BASOPHIL % 0.4 % (0.0-2.0); EOSINOPHIL # 0.1 TH/MM3 (0-0.4); EOSINOPHIL % 1.8 % (0.0-4.0); HEMATOCRIT 40.3 % (35.0-46.0); LYMPH % 18.1 % (9.0-44.0); LYMPHOCYTE # 1.3 TH/MM3 (1.0-4.8); MEAN CELL VOLUME 88.1 FL (80.0-100.0); MEAN CORPUSCULAR HEMOGLOBIN 30.5 PG (27.0-34.0); MEAN CORPUSCULAR HGB CONC 34.6 % (32.0-36.0); MEAN PLATELET VOLUME 8.1 FL (7.0-11.0); MONO % 13.2 % (0.0-8.0); MONOCYTE # 0.9 TH/MM3 (0-0.9); NEUT % 66.5 % (16.0-70.0); PLATELET COUNT 168 TH/MM3 (150-450); RED BLOOD COUNT 4.58 MIL/MM3 (4.00-5.30); RED CELL DISTRIBUTION WIDTH 16.3 % (11.6-17.2); WHITE BLOOD COUNT 7.1 TH/MM3 (4.0-11.0)
[2017-11-09 11:20] LABS: ALBUMIN 2.8 GM/DL (3.4-5.0); ALT (GPT) 26 U/L (10-53); AST (GOT) 23 U/L (15-37); BLOOD UREA NITROGEN 9 MG/DL (7-18); CALCIUM 8.4 MG/DL (8.5-10.1); CHLORIDE 104 MEQ/L (98-107); CREATININE 0.68 MG/DL (0.50-1.00); GLOMERULAR FILTRATION RATE 83 ML/MIN (>89); GLUCOSE,RANDOM 159 MG/DL (74-106); MAGNESIUM 1.8 MG/DL (1.5-2.5); PHOSPHORUS 3.1 MG/DL (2.5-4.9); SODIUM (NA) 140 MEQ/L (136-145)
[2017-11-09 11:34] LABS: ALKALINE PHOSPHATASE 58 U/L (45-117); FREE T4 1.66 NG/DL (0.76-1.46); TOTAL BILIRUBIN ADULT 1.3 MG/DL (0.2-1.0); TOTAL PROTEIN 5.9 GM/DL (6.4-8.2)
[2017-11-09] MEDS ORDERED: guaiFENesin/CODEINE SYRUP 200 MG/20 MG/10 ML CUP PO PRN (11:45)
[2017-11-09] MEDS: POTASSIUM CHLOR 20 MEQ PREMIX 100 ML IV SCH ×5 (12:57→23:30)
[2017-11-09 17:15] LABS: HEMOGLOBIN A1C 5.9 % (4.3-6.0)
--- NOTE | 2017-11-09 19:00 | HHI.HCPN ---
Reason for visit a. To assist with evaluation and management of symptoms including: lethargy ; dysuria; decreased appetite b. To assist medical decision maker(s) with: better understanding of current medical conditions; weighing benefits/burdens of medical treatment options; making medical treatment decisions. . Subjective/Interval History Pt was eating a few bites of food in late afternoon. She has remained quite lethargic throughout the day per . When she awakened, she did not recognize her for some time. Patient awakens with stimulation, but appears even more drowsy then on prior days. . She rarely was able to say more than a slow phrase or two, but she seems even less verbal today. Patient is able to smile. She denies pain. Denies SOB. Spoke with Roseann on floor regarding thyroid function results and disposition. Thyroid testing showing some evidence of hyperthyroidism. reports that patient has been followed for thyroid nodules in past but has never needed any thyroid medication. Unlikely that the patient's lethargy is secondary to this level of thyroid dysfunction. Given her functional status and prognosis, it makes little sense to do further diagnostic testing, consider radiation, or start on anti-thyroid medications. Dr. Whitfield is concerned about her ability to take oral antibiotics given her minimal PO intake and wants to continue IV meds for now. desires hospice services but is overwhelmed at the idea of taking patient home without help there all the time to assist with turning, toileting, bathing, etc. He is open to prison placement. He needs more information on costs to help make his decision. Collaborated with hospice nurse who is providing more information on hospice and on costs of hired caregivers at home vs prison placement. Potassium back at 2.9 this AM. Albumin now down to 2.8. Free T4 1.66 ; TSH 0.165 . Family/friend interactions Met with and patient in room on my own for 20 minutes reviewing options and discussing skilled care (which I don't think the patient would qualify for as she has little rehab potential); hospice at home; and hospice at a nursing facility. Discussed qualifications for hospice care center placement. Met again with AND hospice admissions nurse for 10 minutes before leaving the two of them to review financial issues. . Advance Directives Living Will: Copy in medical record Health Care Surrogate: Copy in medical record Durable Power of Blasting Entryman: Never completed Advance Directive Specifics Date completed: Living will and health care surrogate designation were completed on 08/23/2009. . Health Care Surrogate(s): Designated health care surrogate is the patient's spouse -- Sandro Newman. . Documented care wishes: Patient's living will is a typical [place] living will indicating that she would NOT want life prolonging measures should she be determined to have an end stage condition, terminal illness, or persistent vegetative state. . Significant change in goals: Patient/ opting to forego further cancer directed therapies. They desire hospice care following this hospitalization and want to know the best venue to receive it. . Objective Vital Signs Date Time Temp Pulse Resp B/P (MAP) Pulse Ox O2 Delivery O2 Flow Rate FiO2 11/09/17 17:00 89 11/09/17 16:16 98.7 93 16 150/80 (103) 92 11/09/17 16:00 90 11/09/17 12:30 99.0 90 16 139/77 (97) 96 11/09/17 08:30 100.0 84 16 152/77 (102) 94 11/09/17 04:00 98.1 87 20 135/69 (91) 93 11/09/17 00:00 98.9 90 22 137/74 (95) 93 11/08/17 20:00 97.5 88 20 126/64 (84) 96 Intake & Output 11/09/17 11/09/17 07:00 19:00 Intake Total 1000 ml Output Total 300 ml Balance 700 ml Intake IV Total 1000 ml Output Urine Total 300 ml . Physical Exam CONSTITUTIONAL/GENERAL: This is a pale, adequately nourished patient, in no apparent distress.She is very lethargic and drifts off to sleep even while trying to answer a question. Able to smile. Generalized weakness. TUBES/LINES/DRAINS: Peripheral IV SKIN: No jaundice, rashes.. Skin tear/abrasion left elbow. Skin temperature appropriate. Not diaphoretic. EYES: Pupils equal and round. Extraocular motions intact. No scleral icterus. No injection or drainage. Fundi not examined. NECK: Trachea midline. CARDIOVASCULAR: Regular rate and rhythm without murmurs, gallops, or rubs. No JVD. RESPIRATORY/CHEST: Symmetric, unlabored respirations. Clear to auscultation. Breath sounds equal bilaterally. No wheezes, rales, or rhonchi. GASTROINTESTINAL: Abdomen soft, non-tender, nondistended. No hepato-splenomegaly , or palpable masses. No guarding. Bowel sounds present. GENITOURINARY: Without palpable bladder distension. MUSCULOSKELETAL: Extremities without clubbing, cyanosis, or edema. LYMPHATICS: Not examined NEUROLOGICAL: Lethargic, but awakens with voice and stimulation. Easily drifts back to sleep. Takes her seconds to process a question and then only able to answer some of them before drifting off. Motor and sensory grossly within normal limits. Follows simple commands. Moves all extremities. PSYCHIATRIC: No obvious anxiety/depression. No apparent hallucinations or other psychotic thought process. . Diagnostic Tests Laboratory Laboratory Tests Test 11/06/17 19:44 11/06/17 20:00 11/07/17 04:29 11/08/17 05:01 White Blood Count 5.6 TH/MM3 (4.0-11.0) 5.3 TH/MM3 (4.0-11.0) 6.6 TH/MM3 (4.0-11.0) Red Blood Count 4.53 MIL/MM3 (4.00-5.30) 4.21 MIL/MM3 (4.00-5.30) 4.49 MIL/MM3 (4.00-5.30) Hemoglobin 13.6 GM/DL (11.6-15.3) 12.9 GM/DL (11.6-15.3) 13.7 GM/DL (11.6-15.3) Hematocrit 39.3 % (35.0-46.0) 37.2 % (35.0-46.0) 39.6 % (35.0-46.0) Mean Corpuscular Volume 86.8 FL (80.0-100.0) 88.5 FL (80.0-100.0) 88.3 FL (80.0-100.0) Mean Corpuscular Hemoglobin 30.1 PG (27.0-34.0) 30.7 PG (27.0-34.0) 30.5 PG (27.0-34.0) Mean Corpuscular Hemoglobin Concent 34.7 % (32.0-36.0) 34.7 % (32.0-36.0) 34.5 % (32.0-36.0) Red Cell Distribution Width 16.1 % (11.6-17.2) 16.1 % (11.6-17.2) 16.2 % (11.6-17.2) Platelet Count 183 TH/MM3 (150-450) 164 TH/MM3 (150-450) 174 TH/MM3 (150-450) Mean Platelet Volume 8.1 FL (7.0-11.0) 8.6 FL (7.0-11.0) 8.5 FL (7.0-11.0) Neutrophils (%) (Auto) 48.8 % (16.0-70.0) 48.3 % (16.0-70.0) 59.6 % (16.0-70.0) Lymphocytes (%) (Auto) 29.5 % (9.0-44.0) 27.5 % (9.0-44.0) 22.3 % (9.0-44.0) Monocytes (%) (Auto) 15.0 % (0.0-8.0) 16.1 % (0.0-8.0) 13.4 % (0.0-8.0) Eosinophils (%) (Auto) 5.9 % (0.0-4.0) 7.3 % (0.0-4.0) 4.3 % (0.0-4.0) Basophils (%) (Auto) 0.8 % (0.0-2.0) 0.8 % (0.0-2.0) 0.4 % (0.0-2.0) Neutrophils # (Auto) 2.7 TH/MM3 (1.8-7.7) 2.5 TH/MM3 (1.8-7.7) 3.9 TH/MM3 (1.8-7.7) Lymphocytes # (Auto) 1.7 TH/MM3 (1.0-4.8) 1.4 TH/MM3 (1.0-4.8) 1.5 TH/MM3 (1.0-4.8) Monocytes # (Auto) 0.8 TH/MM3 (0-0.9) 0.8 TH/MM3 (0-0.9) 0.9 TH/MM3 (0-0.9) Eosinophils # (Auto) 0.3 TH/MM3 (0-0.4) 0.4 TH/MM3 (0-0.4) 0.3 TH/MM3 (0-0.4) Basophils # (Auto) 0.0 TH/MM3 (0-0.2) 0.0 TH/MM3 (0-0.2) 0.0 TH/MM3 (0-0.2) CBC Comment DIFF FINAL DIFF FINAL DIFF FINAL Differential Comment Prothrombin Time 12.8 SEC (9.8-11.6) Prothromb Time International Ratio 1.3 RATIO Activated Partial Thromboplast Time 36.9 SEC (24.3-30.1) Blood Urea Nitrogen 15 MG/DL (7-18) 11 MG/DL (7-18) 8 MG/DL (7-18) Creatinine 1.06 MG/DL (0.50-1.00) 0.87 MG/DL (0.50-1.00) 0.81 MG/DL (0.50-1.00) Random Glucose 139 MG/DL (74-106) 109 MG/DL (74-106) 112 MG/DL (74-106) Total Protein 6.2 GM/DL (6.4-8.2) 5.7 GM/DL (6.4-8.2) Albumin 3.5 GM/DL (3.4-5.0) 3.2 GM/DL (3.4-5.0) 3.3 GM/DL (3.4-5.0) Calcium Level 9.0 MG/DL (8.5-10.1) 8.6 MG/DL (8.5-10.1) 8.4 MG/DL (8.5-10.1) Magnesium Level 2.2 MG/DL (1.5-2.5) 1.8 MG/DL (1.5-2.5) Alkaline Phosphatase 55 U/L (45-117) 49 U/L (45-117) Aspartate Amino Transf (AST/SGOT) 38 U/L (15-37) 43 U/L (15-37) Alanine Aminotransferase (ALT/SGPT) 40 U/L (10-53) 40 U/L (10-53) Total Bilirubin 1.4 MG/DL (0.2-1.0) 1.2 MG/DL (0.2-1.0) Sodium Level 136 MEQ/L (136-145) 140 MEQ/L (136-145) 144 MEQ/L (136-145) Potassium Level 3.4 MEQ/L (3.5-5.1) 3.3 MEQ/L (3.5-5.1) 2.5 MEQ/L (3.5-5.1) Chloride Level 99 MEQ/L (98-107) 104 MEQ/L (98-107) 104 MEQ/L (98-107) Carbon Dioxide Level 29.4 MEQ/L (21.0-32.0) 26.8 MEQ/L (21.0-32.0) 29.4 MEQ/L (21.0-32.0) Anion Gap 8 MEQ/L (5-15) 9 MEQ/L (5-15) 11 MEQ/L (5-15) Estimat Glomerular Filtration Rate 50 ML/MIN (>89) 63 ML/MIN (>89) 68 ML/MIN (>89) Ammonia LESS THAN 10 MCMOL/L Troponin I LESS THAN 0.02 NG/ML Lipase 190 U/L (73-393) Thyroid Stimulating Hormone 3rd Gen 0.369 uIU/ML (0.358-3.740) Urine Color YELLOW (YELLW/STRAW) Urine Turbidity HAZY (CLEAR) Urine pH 5.5 (5.0-8.5) Urine Specific [place] 1.013 (1.002-1.035) Urine Protein TRACE mg/dL (NEG-TRACE) Urine Glucose (UA) NEG mg/dL (NEG) Urine Ketones 10 mg/dL (NEG) Urine Occult Blood SMALL (NEG) Urine Nitrite POS (NEG) Urine Bilirubin NEG (NEG) Urine Urobilinogen LESS THAN 2.0 MG/DL (LESS Urine Leukocyte Esterase LARGE (NEG) Urine RBC 5 /hpf (0-3) Urine WBC 70 /hpf (0-5) Urine WBC Clumps MANY (NONE) Urine Squamous Epithelial Cells 10 /hpf (0-5) Urine Bacteria MANY /hpf (NONE) Urine Mucus FEW /lpf (OCC) Microscopic Urinalysis Comment CULTURE INDICATED Direct Bilirubin 0.3 MG/DL (0.0-0.2) Indirect Bilirubin 0.9 MG/DL (0.0-0.8) Phosphorus Level 3.4 MG/DL (2.5-4.9) Test 11/08/17 12:02 11/09/17 10:35 Potassium Level 3.0 MEQ/L (3.5-5.1) 2.9 MEQ/L (3.5-5.1) White Blood Count 7.1 TH/MM3 (4.0-11.0) Red Blood Count 4.58 MIL/MM3 (4.00-5.30) Hemoglobin 14.0 GM/DL (11.6-15.3) Hematocrit 40.3 % (35.0-46.0) Mean Corpuscular Volume 88.1 FL (80.0-100.0) Mean Corpuscular Hemoglobin 30.5 PG (27.0-34.0) Mean Corpuscular Hemoglobin Concent 34.6 % (32.0-36.0) Red Cell Distribution Width 16.3 % (11.6-17.2) Platelet Count 168 TH/MM3 (150-450) Mean Platelet Volume 8.1 FL (7.0-11.0) Neutrophils (%) (Auto) 66.5 % (16.0-70.0) Lymphocytes (%) (Auto) 18.1 % (9.0-44.0) Monocytes (%) (Auto) 13.2 % (0.0-8.0) Eosinophils (%) (Auto) 1.8 % (0.0-4.0) Basophils (%) (Auto) 0.4 % (0.0-2.0) Neutrophils # (Auto) 4.7 TH/MM3 (1.8-7.7) Lymphocytes # (Auto) 1.3 TH/MM3 (1.0-4.8) Monocytes # (Auto) 0.9 TH/MM3 (0-0.9) Eosinophils # (Auto) 0.1 TH/MM3 (0-0.4) Basophils # (Auto) 0.0 TH/MM3 (0-0.2) CBC Comment DIFF FINAL Differential Comment Blood Urea Nitrogen 9 MG/DL (7-18) Creatinine 0.68 MG/DL (0.50-1.00) Random Glucose 159 MG/DL (74-106) Total Protein 5.9 GM/DL (6.4-8.2) Albumin 2.8 GM/DL (3.4-5.0) Calcium Level 8.4 MG/DL (8.5-10.1) Phosphorus Level 3.1 MG/DL (2.5-4.9) Magnesium Level 1.8 MG/DL (1.5-2.5) Alkaline Phosphatase 58 U/L (45-117) Aspartate Amino Transf (AST/SGOT) 23 U/L (15-37) Alanine Aminotransferase (ALT/SGPT) 26 U/L (10-53) Total Bilirubin 1.3 MG/DL (0.2-1.0) Sodium Level 140 MEQ/L (136-145) Chloride Level 104 MEQ/L (98-107) Carbon Dioxide Level 28.0 MEQ/L (21.0-32.0) Anion Gap 8 MEQ/L (5-15) Estimat Glomerular Filtration Rate 83 ML/MIN (>89) Free Thyroxine 1.66 NG/DL (0.76-1.46) Thyroid Stimulating Hormone 3rd Gen 0.165 uIU/ML (0.358-3.740) . Result Diagram: 11/09/17 1035 11/09/17 1035 Microbiology Microbiology Date/Time Source Procedure Growth Status 11/06/17 20:00 Urine Clean Catch Urine Culture - Final Enterobacter Aerogenes Complete . Imaging Last Impressions Head Magnetic Resonance Angiography 11/07/17 0000 Signed Impressions: Service Date/Time: Tuesday, November 07, 2017 12:59 - CONCLUSION: There is evidence of some blood volume in the new enhancing nodule adjacent to the primary tumor. Los Navarro MD Brain MRI 11/07/17 0000 Signed Impressions: Service Date/Time: Tuesday, November 07, 2017 12:59 - CONCLUSION: The dominant mass in the right parietal lobe has decreased in size slightly, but there is evidence of recurrent tumor with enhancement along the biopsy tract and a new 7 mm enhancing nodule adjacent to the superior lateral margin of the residual mass. Decrease in the amount of surrounding edema when compared to May 2017. Los Navarro MD Head CT 11/06/171925 Signed Impressions: Service Date/Time: Monday, November 06, 2017 20:53 - CONCLUSION: 1. Prior right craniotomy with encephalomalacia in the operative bed and some punctate calcifications. No current mass effect or shift. There is no recent infarct identified. Jagdish Castillo MD Chest X-Ray 11/06/171925 Signed Impressions: Service Date/Time: Monday, November 06, 2017 19:39 - CONCLUSION: 1. Elevated right hemidiaphragm. Basilar atelectasis. Jagdish Castillo MD . Assessment and Plan Disease Oriented Problem List: (1) Glioblastoma multiforme Comment: s/p right craniotomy; radiation therapy; chemotherapy . (2) Urinary tract infection Comment: Growing gram neg irene. . (3) Hypothyroidism Comment: Lab from 11/09/17 shows HYPERTHYROIDISM while off any thyroid meds. . (4) Osteoarthritis (5) Deep venous thrombosis Comment: Has been on Pradaxa . Symptom Scale: (1) Pain 0-10 Scale: 0 Comment: Patient has been remarkably free of pain during her illness. . (2) Weakness 0-10 Scale: 10 Comment: Was unable to bear weight and ambulate at time of admission. . (3) Lethargy 0-10 Scale: 10 Comment: Sleeping over 20 hours /day. . (4) Fatigue 0-10 Scale: 10 Pertinent Non-Medical Issues Psychosocial: Patient has been living at home with her spouse who is her primary caregiver. Her 2 children live out of state. Spiritual: Muslim and spirituality are important parts of her life. She is [employer]. Her is a retired director of securities and real estate. Legal: Living will and healthcare surrogate are completed and on chart. They are dated 08/23/2009. Her is her healthcare surrogate. Ethical issues impacting care: Patient appears cognitively intact but is quite lethargic. . Important Contacts Sandromoriah Newman (spouse and health care surrogate) [phone] Dilip Newman (son) [place], [place] [phone] . Prognosis Patient has a glioblastoma now s/p craniotomy; radiation therapy; chemo. Imaging showing new tumor development in spite of treatment. Patient is very lethargic and sleeping 20 hours / day and growing weaker. She is probably not benefitting from ongoing aggressive cancer -directed treatments. Pt and would benefit from hospice services. Anticipate in weeks to a few months. . Code Status: No Code Plan == Code Status: NO CODE. Patient and confirmed desire for NO CODE status during our conversation at bedside on 11/07/17. == Decision Making: Patient's lethargy has progressed. I no longer feel she is capacitated to make her own health care decisions. Her designated health care surrogate is her spouse -- Sandro Newman. == Goals of medical treatment: Patient and have decided NOT to go forward with additional cancer directed treatments. Considering hospice care. == Symptoms. * Pain: Patient has been remarkably pain free. Except for some recent dysuria , there has been very little discomfort. No further recommendations at his time. * Lethargy/fatigue: Patient has been sleeping easily up to 20 hours a day. She has had extreme fatigue since her craniotomy and it has grown worse. Unclear, at this point, if the increased lethargy is secondary to her UTI or is a symptom of disease progression. Would consider adding systemic steroids, but spouse reports the patient had a very adverse reaction to steroids ( including suicidal ideation) even at very low doses. PCP had prescribed methylphenidate, but pt did not take it. * Weakness: Patient was unable to walk in the day or so prior to this admission. Unclear, initially , if the increased weakness was secondary to her UTI or is a symptom of disease progression. It has not improved with antibiotic treatment-- therefore, weakness is probably from the brain tumor. == Discussed anti-coagulation with Dr. Frank given history of falls. He feels that if patient enrolls with hospice that anti-coagulation should be discontinued. == Hospice is probably best options given goals. has met with hospice. He is feeling overwhelmed. He wants her home but does not feel he can care for her and is unsure he can afford communications department chair hired caregivers. Also uncertain about finances of having hospice follow her in a prison. Hospice providing additional information on these options. == If patient enrolls with hospice, based on the exam of 11/09/17, she would not qualify for care center placement. If patient is still unable to walk at time of hospital discharge, they will need additional help at home. == Discharge planning: Dr. Whitfield would like to continue IV antibiotics for her UTI for now. == Palliative care will continue to follow during course of hospitalization to assist with symptom management and to further clarify goals of medical treatment as the clinical course evolves. . Time Spent Total Floor Time (mins): 40 (Total floor time included chart review; patient exam; in-person discussion of case with Dr. Whitfield; abover referenced bedside discussion with patient/; collaboration with Hospice admissions nurse. ) Face to Face Time (mins): 30 >50% Counseling/Coord of Care: Yes Attestation To help prompt me to consider important information that might be impacting today's encounter and assessment, information from prior notes written by myself or my colleagues may have been "brought forward" into today's note. My signature on this note, however, is an attestation that I personally performed the exam, history, and/or decision-making noted today, and, unless otherwise indicated, the interactions with patient, family, and staff as well as the review of records all occurred today. I also attest that the listed assessment and stated plan reflect my best clinical judgment today based on the combination of historical information, prior notes, and today's exam/ interactions. When time spent is documented, it refers only to time spent today by the signer, or if indicated, combined time spent today by collaborating physician/nurse practitioner. . Ace Starr MD Nov 09, 2017 19:00
[2017-11-10] VITALS (18 sets, daily range): BP systolic 109–155; BP diastolic 55–82; PULSE 72–98; RESP 16–20; TEMP 98.9–100.7; O2SAT 94–97
[2017-11-10] MEDS: cefTRIAXone INJ 1,000 MG in SODIUM CHLORIDE 0.9% INJ 100 ML IV SCH (05:20)
[2017-11-10 06:58] LABS: ALBUMIN 2.5 GM/DL (3.4-5.0); ALKALINE PHOSPHATASE 52 U/L (45-117); ALT (GPT) 18 U/L (10-53); AST (GOT) 11 U/L (15-37); BICARBONATE 24.6 MEQ/L (21.0-32.0); BLOOD UREA NITROGEN 11 MG/DL (7-18); CALCIUM 8.6 MG/DL (8.5-10.1); CHLORIDE 110 MEQ/L (98-107); CREATININE 0.68 MG/DL (0.50-1.00); GLOMERULAR FILTRATION RATE 83 ML/MIN (>89); GLUCOSE,RANDOM 139 MG/DL (74-106); MAGNESIUM 1.8 MG/DL (1.5-2.5); PHOSPHORUS 2.6 MG/DL (2.5-4.9); SODIUM (NA) 141 MEQ/L (136-145); TOTAL BILIRUBIN ADULT 1.2 MG/DL (0.2-1.0); TOTAL PROTEIN 5.3 GM/DL (6.4-8.2)
[2017-11-10 07:03] LABS: BASOPHIL % 0.3 % (0.0-2.0); EOSINOPHIL # 0.1 TH/MM3 (0-0.4); EOSINOPHIL % 2.1 % (0.0-4.0); HEMATOCRIT 36.8 % (35.0-46.0); HEMOGLOBIN 12.5 GM/DL (11.6-15.3); LYMPHOCYTE # 1.4 TH/MM3 (1.0-4.8); MEAN CELL VOLUME 89.2 FL (80.0-100.0); MEAN CORPUSCULAR HEMOGLOBIN 30.4 PG (27.0-34.0); MEAN PLATELET VOLUME 8.6 FL (7.0-11.0); NEUT % 61.6 % (16.0-70.0); PLATELET COUNT 159 TH/MM3 (150-450); RED BLOOD COUNT 4.13 MIL/MM3 (4.00-5.30); WHITE BLOOD COUNT 6.5 TH/MM3 (4.0-11.0)
[2017-11-10] MEDS: SODIUM CHLORIDE 0.9% FLUSH 10 ML FLUSH IV FLUSH SCH ×2 (09:00→21:00)
--- NOTE | 2017-11-10 10:18 | HHI.PR ---
Subjective Remarks 77-year-old female with a past medical history significant for glioblastoma and left lower extremity DVT anticoagulated on Pradaxa was brought to the emergency department by her for evaluation of progressive weakness over the last 24 hours. The patient is interviewed alone and states that she feels fine now. She is able to answer my questions slowly however cannot tell me exactly why she came to the emergency department. Per emergency room documentation, the patient's stated that she had a second round of double dose chemotherapy for her glioblastoma on Sunday. He reports that over the last week she has had a diminished appetite. Denies any vomiting or diarrhea. No chest pain or shortness of breath. No abdominal pain. Increasing weakness without lateralizing signs/symptoms. 4-5 Patient says she is feeling all right this morning. Denies any pain. 4-6 I discussed with her and case management and RN and oncology patient has been seen by palliative care Very lethargic today May need SNF with hospice I do not believe hospice is seen her yet today Continue current antibiotic treatment 4-7 more alert today much more talkative today dw RN AND PT AND AND CASE MANGEMENT AM LABS Objective Vitals Vital Signs Date Time Temp Pulse Resp B/P (MAP) Pulse Ox O2 Delivery O2 Flow Rate FiO2 11/10/17 09:01 99.2 76 18 155/69 (97) 96 11/10/17 06:53 99.9 11/10/17 06:00 80 11/10/17 05:23 100.7 80 16 139/77 (97) 94 11/10/17 05:00 80 11/10/17 04:00 84 11/10/17 03:00 82 11/10/17 02:00 90 11/10/17 01:00 94 11/10/17 00:02 93 11/10/17 00:00 99.7 98 18 149/73 (98) 94 11/09/17 23:00 99 11/09/17 22:00 94 11/09/17 21:50 98.4 93 19 150/77 (101) 96 11/09/17 21:00 92 11/09/17 20:05 93 11/09/17 19:00 90 11/09/17 17:00 89 11/09/17 16:16 98.7 93 16 150/80 (103) 92 11/09/17 16:00 90 11/09/17 12:30 99.0 90 16 139/77 (97) 96 I/O 11/09/17 11/09/17 11/09/17 11/10/17 11/10/17 11/10/17 07:00 15:00 23:00 07:00 15:00 23:00 Intake Total 1000 ml 290 ml 880 ml Output Total 300 ml 450 ml 300 ml Balance 700 ml -160 ml 580 ml Intake Oral 90 ml 180 ml IV Total 1000 ml 200 ml 700 ml Output Urine Total 300 ml 450 ml 300 ml # Voids 1 Result Diagram: 11/10/17 0535 11/10/17 0535 Other Results Laboratory Tests Test 11/08/17 05:01 11/08/17 12:02 11/09/17 10:35 11/10/17 05:35 White Blood Count 6.6 TH/MM3 7.1 TH/MM3 6.5 TH/MM3 Red Blood Count 4.49 MIL/MM3 4.58 MIL/MM3 4.13 MIL/MM3 Hemoglobin 13.7 GM/DL 14.0 GM/DL 12.5 GM/DL Hematocrit 39.6 % 40.3 % 36.8 % Mean Corpuscular Volume 88.3 FL 88.1 FL 89.2 FL Mean Corpuscular Hemoglobin 30.5 PG 30.5 PG 30.4 PG Mean Corpuscular Hemoglobin Concent 34.5 % 34.6 % 34.0 % Red Cell Distribution Width 16.2 % 16.3 % 16.0 % Platelet Count 174 TH/MM3 168 TH/MM3 159 TH/MM3 Mean Platelet Volume 8.5 FL 8.1 FL 8.6 FL Neutrophils (%) (Auto) 59.6 % 66.5 % 61.6 % Lymphocytes (%) (Auto) 22.3 % 18.1 % 21.0 % Monocytes (%) (Auto) 13.4 % 13.2 % 15.0 % Eosinophils (%) (Auto) 4.3 % 1.8 % 2.1 % Basophils (%) (Auto) 0.4 % 0.4 % 0.3 % Neutrophils # (Auto) 3.9 TH/MM3 4.7 TH/MM3 4.0 TH/MM3 Lymphocytes # (Auto) 1.5 TH/MM3 1.3 TH/MM3 1.4 TH/MM3 Monocytes # (Auto) 0.9 TH/MM3 0.9 TH/MM3 1.0 TH/MM3 Eosinophils # (Auto) 0.3 TH/MM3 0.1 TH/MM3 0.1 TH/MM3 Basophils # (Auto) 0.0 TH/MM3 0.0 TH/MM3 0.0 TH/MM3 CBC Comment DIFF FINAL DIFF FINAL DIFF FINAL Differential Comment Blood Urea Nitrogen 8 MG/DL 9 MG/DL 11 MG/DL Creatinine 0.81 MG/DL 0.68 MG/DL 0.68 MG/DL Random Glucose 112 MG/DL 159 MG/DL 139 MG/DL Albumin 3.3 GM/DL 2.8 GM/DL 2.5 GM/DL Calcium Level 8.4 MG/DL 8.4 MG/DL 8.6 MG/DL Phosphorus Level 3.4 MG/DL 3.1 MG/DL 2.6 MG/DL Magnesium Level 1.8 MG/DL 1.8 MG/DL 1.8 MG/DL Sodium Level 144 MEQ/L 140 MEQ/L 141 MEQ/L Potassium Level 2.5 MEQ/L 3.0 MEQ/L 2.9 MEQ/L 3.9 MEQ/L Chloride Level 104 MEQ/L 104 MEQ/L 110 MEQ/L Carbon Dioxide Level 29.4 MEQ/L 28.0 MEQ/L 24.6 MEQ/L Anion Gap 11 MEQ/L 8 MEQ/L 6 MEQ/L Estimat Glomerular Filtration Rate 68 ML/MIN 83 ML/MIN 83 ML/MIN Total Protein 5.9 GM/DL 5.3 GM/DL Alkaline Phosphatase 58 U/L 52 U/L Aspartate Amino Transf (AST/SGOT) 23 U/L 11 U/L Alanine Aminotransferase (ALT/SGPT) 26 U/L 18 U/L Total Bilirubin 1.3 MG/DL 1.2 MG/DL Hemoglobin A1c 5.9 % Free Thyroxine 1.66 NG/DL Thyroid Stimulating Hormone 3rd Gen 0.165 uIU/ML Imaging Last Impressions Head Magnetic Resonance Angiography 11/07/17 0000 Signed Impressions: Service Date/Time: Tuesday, November 07, 2017 12:59 - CONCLUSION: There is evidence of some blood volume in the new enhancing nodule adjacent to the primary tumor. Los Navarro MD Brain MRI 11/07/17 0000 Signed Impressions: Service Date/Time: Tuesday, November 07, 2017 12:59 - CONCLUSION: The dominant mass in the right parietal lobe has decreased in size slightly, but there is evidence of recurrent tumor with enhancement along the biopsy tract and a new 7 mm enhancing nodule adjacent to the superior lateral margin of the residual mass. Decrease in the amount of surrounding edema when compared to May 2017. Los Navarro MD Head CT 11/06/171925 Signed Impressions: Service Date/Time: Monday, November 06, 2017 20:53 - CONCLUSION: 1. Prior right craniotomy with encephalomalacia in the operative bed and some punctate calcifications. No current mass effect or shift. There is no recent infarct identified. Jagdish Castillo MD Chest X-Ray 11/06/171925 Signed Impressions: Service Date/Time: Monday, November 06, 2017 19:39 - CONCLUSION: 1. Elevated right hemidiaphragm. Basilar atelectasis. Jagdish Castillo MD Objective Remarks GENERAL: More awake and alert than yesterday talkative and somewhat cooperative SKIN: Warm and dry. HEAD: Atraumatic. Normocephalic. EYES: Pupils equal and round. No scleral icterus. No injection or drainage. Extraocular muscles intact ENT: No nasal bleeding or discharge. Mucous membranes pink and moist. Tongue is midline supple NECK: Trachea midline. No JVD. CARDIOVASCULAR: Regular rate and rhythm. S1-S2 no S3 or S4 RESPIRATORY: No accessory muscle use. Clear to auscultation. Breath sounds equal bilaterally. GASTROINTESTINAL: Abdomen soft, non-tender, nondistended. Hepatic and splenic margins not palpable. MUSCULOSKELETAL: Extremities without clubbing, cyanosis, or edema. No obvious deformities. NEUROLOGICAL: Awake and alert. No obvious cranial nerve deficits. Motor grossly within normal limits. 4 out of 5 muscle strength in the arms and legs. Normal speech but very lethargic. PSYCHIATRIC: INAppropriate mood and affect; insight and judgment ABnormal. Procedures NONE Medications and IVs Current Medications Sodium Chloride 1,000 ml @ 100 mls/hr Q10H IV Last administered on 11/09/17at 23 :29; Start 11/06/17 at 19:45 Potassium Chloride (KCl) 10 meq ONCE ONCE PO Last administered on 11/06/17at 21: 05; Start 11/06/17 at 21:00; Stop 11/06/17 at 21:01; Status DC Sodium Chloride (NS Flush) 2 ml UNSCH PRN IV FLUSH FLUSH AFTER USING IV ACCESS ; Start 11/06/17 at 23:30 Sodium Chloride (NS Flush) 2 ml BID IV FLUSH Last administered on 11/07/17at 21: 54; Start 11/07/17 at 09:00 Ondansetron HCl (Zofran Inj) 4 mg Q6H PRN IVP NAUSEA OR VOMITING; Start at 23:30 Heparin Sodium (Porcine) (Heparin Inj) 5,000 units Q8H SQ ; Start 11/06/17 at 23: 30; Stop 11/06/17 at 23:30; Status DC Naloxone HCl (Narcan Inj) 0.4 mg UNSCH PRN IV PUSH SEE LABEL COMMENTS; Start at 23:30 Senna/Docusate Sodium (Miranda-Colace) 1 tab BID PO Last administered on 11/09/17at 22:00; Start 11/07/17 at 09:00 Magnesium Hydroxide (Milk Of Magnesia Liq) 30 ml Q12H PRN PO Mild constipation ; Start 11/06/17 at 23:30 Sennosides (Senokot) 17.2 mg Q12H PRN PO Moderate constipation; Start 11/06/17 at 23:30 Bisacodyl (Dulcolax Supp) 10 mg DAILY PRN RECTAL SEVERE CONSITIPATION/ IF NPO ; Start 11/06/17 at 23:30 Lactulose (Lactulose Liq) 30 ml DAILY PRN PO SEVERE CONSITIPATION/ IF PO; Start 11/06/17 at 23:30 Morphine Sulfate (Morphine Inj) 4 mg Q3H PRN IV PUSH pain 6-10; Start 11/06/17 at 23:30 Bumetanide (Bumetanide) 2 mg DAILY PO Last administered on 11/08/17at 08:29; Start 11/07/17 at 09:00; Stop 11/08/17 at 09:20; Status DC Dabigatran (Pradaxa) 150 mg DAILY PO Last administered on 11/09/17at 10:14; Start 11/07/17 at 09:00 Levetriacetam (Keppra) 500 mg BID PO Last administered on 11/09/17at 22:00; Start 11/07/17 at 09:00 Pantoprazole Sodium (Protonix) 40 mg DAILY PO Last administered on 11/08/17 08: 29; Start 11/07/17 at 09:00 Ceftriaxone Sodium 1000 mg/ Sodium Chloride 100 ml @ 200 mls/hr Q24H IV Last administered on 11/10/17at 05:20; Start 11/07/17 at 04:00 Potassium Chloride (KCl) 20 meq ONCE ONCE PO Last administered on 11/07/17at 11: 29; Start 11/07/17 at 10:30; Stop 11/07/17 at 10:36; Status DC Gadodiamide (Omniscan Pf Inj) 20 ml STK-MED ONCE IVCONTRAST Last administered on 11/07/17at 14:10; Start 11/07/17 at 14:10; Stop 11/07/17 at 14:11; Status DC Magnesium Sulfate/ Dextrose 100 ml @ 100 mls/hr ONCE ONCE IV Last administered on 11/08/17at 08:29; Start 11/08/17 at 08:00; Stop 11/08/17 at 08:59; Status DC Potassium Chloride 100 ml @ 50 mls/hr Q2H IV Last administered on 11/08/17at 12: 19; Start 11/08/17 at 09:00; Stop 11/08/17 at 12:59; Status DC Potassium Chloride (KCl) 60 meq ONCE ONCE PO Last administered on 11/08/17at 08: 30; Start 11/08/17 at 08:00; Stop 11/08/17 at 08:01; Status DC Potassium Chloride 100 ml @ 50 mls/hr Q2H IV Last administered on 11/09/17at 23: 30; Start 11/09/17 at 13:00; Stop 11/09/17 at 22:59; Status DC Guaifenesin/ Codeine Phosphate (Robitussin Ac 200-20 Mg/10 ml Liq) 10 ml Q6H PRN PO COUGH; Start 11/09/17 at 11:45 A/P Assessment and Plan //Progressive weakness Likely secondary to chemotherapy received last Sunday Oncology consulted, Dr. Frank, appreciate recommendations CT of the head shows prior right craniotomy without current mass effect or shift PT recommends rehab. = MRI reviewed. Oncology following. Appreciate assistance. //Glioblastoma Continue Keppra for seizure prophylaxis Appreciate oncology input //Left lower extremity DVT Continue home Pradaxa //Urinary tract infection UA consistent with urinary tract infection despite 10 squamous epithelial cells Urine culture pending Rocephin = /. Gram-negative irene. Follow-up sensitivities. //Hypokalemia. = 4/5. =2.5. Replace. Stop Bumex. Continue to monitor We will replace Check a.m. labs Family to meet with hospice to get more information FEN Regular diet Ns at 100 cc/hr Electrolytes: Status post oral potassium repletion, monitor BMP Pradaxa Discharge Planning Pending improvement with possible SNF discharge Melvin Whitfield DO Nov 10, 2017 10:18
[2017-11-10] MEDS: levETIRAcetam 500 MG TAB PO SCH ×2 (10:25→21:10)
[2017-11-10] MEDS: SODIUM CHLOR 0.9% 1000 ML INJ 1,000 ML IV SCH (10:25)
[2017-11-10] MEDS: PANTOPRAZOLE SOD 40 MG DELAYED RELEASE TAB PO SCH (10:25)
[2017-11-10] MEDS: DOCUSATE SODIUM 50 MG/SENNA 8.6 MG TAB PO SCH ×2 (10:26→21:10)
[2017-11-10] MEDS: DABIGATRAN ETEXILATE 150 MG CAP PO SCH (10:26)
[2017-11-11] VITALS (16 sets, daily range): BP systolic 117–140; BP diastolic 60–75; PULSE 68–98; RESP 16–20; TEMP 98.4–99.6; O2SAT 94–98
[2017-11-11] MEDS: SODIUM CHLOR 0.9% 1000 ML INJ 1,000 ML IV SCH ×3 (00:24→20:55)
[2017-11-11] MEDS: cefTRIAXone INJ 1,000 MG in SODIUM CHLORIDE 0.9% INJ 100 ML IV SCH (04:13)
[2017-11-11 07:30] LABS: AUTOMATED NEUTROPHIL # 2.8 TH/MM3 (1.8-7.7); BASOPHIL % 0.4 % (0.0-2.0); EOSINOPHIL # 0.2 TH/MM3 (0-0.4); EOSINOPHIL % 4.8 % (0.0-4.0); LYMPH % 22.1 % (9.0-44.0); MEAN CELL VOLUME 88.1 FL (80.0-100.0); MEAN CORPUSCULAR HEMOGLOBIN 30.2 PG (27.0-34.0); MEAN CORPUSCULAR HGB CONC 34.3 % (32.0-36.0); MEAN PLATELET VOLUME 8.5 FL (7.0-11.0); MONO % 13.7 % (0.0-8.0); MONOCYTE # 0.7 TH/MM3 (0-0.9); PLATELET COUNT 154 TH/MM3 (150-450); RED BLOOD COUNT 3.97 MIL/MM3 (4.00-5.30); RED CELL DISTRIBUTION WIDTH 15.7 % (11.6-17.2); WHITE BLOOD COUNT 4.8 TH/MM3 (4.0-11.0)
[2017-11-11 08:21] LABS: ALBUMIN 2.1 GM/DL (3.4-5.0); ALKALINE PHOSPHATASE 48 U/L (45-117); ALT (GPT) 14 U/L (10-53); AST (GOT) 15 U/L (15-37); BICARBONATE 24.7 MEQ/L (21.0-32.0); BLOOD UREA NITROGEN 7 MG/DL (7-18); CALCIUM 8.5 MG/DL (8.5-10.1); CHLORIDE 108 MEQ/L (98-107); CREATININE 0.56 MG/DL (0.50-1.00); GLOMERULAR FILTRATION RATE 104 ML/MIN (>89); GLUCOSE,RANDOM 116 MG/DL (74-106); MAGNESIUM 1.7 MG/DL (1.5-2.5); PHOSPHORUS 2.8 MG/DL (2.5-4.9); SODIUM (NA) 142 MEQ/L (136-145); TOTAL BILIRUBIN ADULT 0.8 MG/DL (0.2-1.0)
[2017-11-11] MEDS: SODIUM CHLORIDE 0.9% FLUSH 10 ML FLUSH IV FLUSH SCH ×2 (09:00→20:54)
[2017-11-11] MEDS: DOCUSATE SODIUM 50 MG/SENNA 8.6 MG TAB PO SCH ×2 (09:00→20:53)
--- NOTE | 2017-11-11 10:17 | HHI.PR ---
Subjective Remarks 77-year-old female with a past medical history significant for glioblastoma and left lower extremity DVT anticoagulated on Pradaxa was brought to the emergency department by her for evaluation of progressive weakness over the last 24 hours. The patient is interviewed alone and states that she feels fine now. She is able to answer my questions slowly however cannot tell me exactly why she came to the emergency department. Per emergency room documentation, the patient's stated that she had a second round of double dose chemotherapy for her glioblastoma on Sunday. He reports that over the last week she has had a diminished appetite. Denies any vomiting or diarrhea. No chest pain or shortness of breath. No abdominal pain. Increasing weakness without lateralizing signs/symptoms. 4-5 Patient says she is feeling all right this morning. Denies any pain. 4-6 I discussed with her and case management and RN and oncology patient has been seen by palliative care Very lethargic today May need SNF with hospice I do not believe hospice is seen her yet today Continue current antibiotic treatment 4-7 more alert today much more talkative today dw RN AND PT AND AND CASE MANGEMENT AM LABS 4-8 much more alert today eating breakfast discussed with and patient and RN and case management Wants to go to [facility] at discharge with hospice involvement Place potassium A.m. labs Objective Vitals Vital Signs Date Time Temp Pulse Resp B/P (MAP) Pulse Ox O2 Delivery O2 Flow Rate FiO2 11/11/17 08:52 98.7 78 16 117/74 (88) 96 11/11/17 06:00 72 11/11/17 05:00 68 11/11/17 04:07 98.4 80 18 123/60 (81) 95 11/11/17 04:00 71 11/11/17 03:00 76 11/11/17 02:00 78 11/11/17 01:00 80 11/11/17 00:27 99.6 84 20 132/75 (94) 94 11/11/17 00:00 82 11/10/17 23:00 84 11/10/17 22:00 88 11/10/17 21:00 92 11/10/17 20:00 88 11/10/17 20:00 99.6 91 20 109/55 (73) 94 11/10/17 19:00 82 11/10/17 16:22 99.5 82 16 145/82 (103) 95 11/10/17 12:16 98.9 72 16 143/71 (95) 97 I/O 11/10/17 11/10/17 11/10/17 11/11/17 11/11/17 11/11/17 07:00 15:00 23:00 07:00 15:00 23:00 Intake Total 880 ml 720 ml 220 ml Output Total 300 ml 500 ml 100 ml Balance 580 ml 220 ml 120 ml Intake Oral 180 ml 720 ml 120 ml IV Total 700 ml 100 ml Output Urine Total 300 ml 500 ml 100 ml # Voids 1 1 Result Diagram: 11/11/17 0511 11/11/17 0511 Other Results Laboratory Tests Test 11/08/17 12:02 11/09/17 10:35 11/10/17 05:35 11/11/17 05:11 Potassium Level 3.0 MEQ/L 2.9 MEQ/L 3.9 MEQ/L 3.0 MEQ/L White Blood Count 7.1 TH/MM3 6.5 TH/MM3 4.8 TH/MM3 Red Blood Count 4.58 MIL/MM3 4.13 MIL/MM3 3.97 MIL/MM3 Hemoglobin 14.0 GM/DL 12.5 GM/DL 12.0 GM/DL Hematocrit 40.3 % 36.8 % 35.0 % Mean Corpuscular Volume 88.1 FL 89.2 FL 88.1 FL Mean Corpuscular Hemoglobin 30.5 PG 30.4 PG 30.2 PG Mean Corpuscular Hemoglobin Concent 34.6 % 34.0 % 34.3 % Red Cell Distribution Width 16.3 % 16.0 % 15.7 % Platelet Count 168 TH/MM3 159 TH/MM3 154 TH/MM3 Mean Platelet Volume 8.1 FL 8.6 FL 8.5 FL Neutrophils (%) (Auto) 66.5 % 61.6 % 59.0 % Lymphocytes (%) (Auto) 18.1 % 21.0 % 22.1 % Monocytes (%) (Auto) 13.2 % 15.0 % 13.7 % Eosinophils (%) (Auto) 1.8 % 2.1 % 4.8 % Basophils (%) (Auto) 0.4 % 0.3 % 0.4 % Neutrophils # (Auto) 4.7 TH/MM3 4.0 TH/MM3 2.8 TH/MM3 Lymphocytes # (Auto) 1.3 TH/MM3 1.4 TH/MM3 1.0 TH/MM3 Monocytes # (Auto) 0.9 TH/MM3 1.0 TH/MM3 0.7 TH/MM3 Eosinophils # (Auto) 0.1 TH/MM3 0.1 TH/MM3 0.2 TH/MM3 Basophils # (Auto) 0.0 TH/MM3 0.0 TH/MM3 0.0 TH/MM3 CBC Comment DIFF FINAL DIFF FINAL DIFF FINAL Differential Comment Blood Urea Nitrogen 9 MG/DL 11 MG/DL 7 MG/DL Creatinine 0.68 MG/DL 0.68 MG/DL 0.56 MG/DL Random Glucose 159 MG/DL 139 MG/DL 116 MG/DL Total Protein 5.9 GM/DL 5.3 GM/DL 5.0 GM/DL Albumin 2.8 GM/DL 2.5 GM/DL 2.1 GM/DL Calcium Level 8.4 MG/DL 8.6 MG/DL 8.5 MG/DL Phosphorus Level 3.1 MG/DL 2.6 MG/DL 2.8 MG/DL Magnesium Level 1.8 MG/DL 1.8 MG/DL 1.7 MG/DL Alkaline Phosphatase 58 U/L 52 U/L 48 U/L Aspartate Amino Transf (AST/SGOT) 23 U/L 11 U/L 15 U/L Alanine Aminotransferase (ALT/SGPT) 26 U/L 18 U/L 14 U/L Total Bilirubin 1.3 MG/DL 1.2 MG/DL 0.8 MG/DL Sodium Level 140 MEQ/L 141 MEQ/L 142 MEQ/L Chloride Level 104 MEQ/L 110 MEQ/L 108 MEQ/L Carbon Dioxide Level 28.0 MEQ/L 24.6 MEQ/L 24.7 MEQ/L Anion Gap 8 MEQ/L 6 MEQ/L 9 MEQ/L Estimat Glomerular Filtration Rate 83 ML/MIN 83 ML/MIN 104 ML/MIN Hemoglobin A1c 5.9 % Free Thyroxine 1.66 NG/DL Thyroid Stimulating Hormone 3rd Gen 0.165 uIU/ML Imaging Last Impressions Head Magnetic Resonance Angiography 11/07/17 0000 Signed Impressions: Service Date/Time: Tuesday, November 07, 2017 12:59 - CONCLUSION: There is evidence of some blood volume in the new enhancing nodule adjacent to the primary tumor. Los Navarro MD Brain MRI 11/07/17 0000 Signed Impressions: Service Date/Time: Tuesday, November 07, 2017 12:59 - CONCLUSION: The dominant mass in the right parietal lobe has decreased in size slightly, but there is evidence of recurrent tumor with enhancement along the biopsy tract and a new 7 mm enhancing nodule adjacent to the superior lateral margin of the residual mass. Decrease in the amount of surrounding edema when compared to May 2017. Los Navarro MD Head CT 11/06/171925 Signed Impressions: Service Date/Time: Monday, November 06, 2017 20:53 - CONCLUSION: 1. Prior right craniotomy with encephalomalacia in the operative bed and some punctate calcifications. No current mass effect or shift. There is no recent infarct identified. Jagdish Castillo MD Chest X-Ray 11/06/171925 Signed Impressions: Service Date/Time: Monday, November 06, 2017 19:39 - CONCLUSION: 1. Elevated right hemidiaphragm. Basilar atelectasis. Jagdish Castillo MD Objective Remarks GENERAL: More awake and alert than yesterday talkative and somewhat cooperative SKIN: Warm and dry. HEAD: Atraumatic. Normocephalic. EYES: Pupils equal and round. No scleral icterus. No injection or drainage. Extraocular muscles intact ENT: No nasal bleeding or discharge. Mucous membranes pink and moist. Tongue is midline supple NECK: Trachea midline. No JVD. CARDIOVASCULAR: Regular rate and rhythm. S1-S2 no S3 or S4 RESPIRATORY: No accessory muscle use. Clear to auscultation. Breath sounds equal bilaterally. GASTROINTESTINAL: Abdomen soft, non-tender, nondistended. Hepatic and splenic margins not palpable. MUSCULOSKELETAL: Extremities without clubbing, cyanosis, or edema. No obvious deformities. NEUROLOGICAL: Awake and alert. No obvious cranial nerve deficits. Motor grossly within normal limits. 4 out of 5 muscle strength in the arms and legs. Normal speech but very lethargic. PSYCHIATRIC: INAppropriate mood and affect; insight and judgment ABnormal. Procedures NONE Medications and IVs Current Medications Sodium Chloride 1,000 ml @ 100 mls/hr Q10H IV Last administered on 11/11/17at 00 :24; Start 11/06/17 at 19:45 Potassium Chloride (KCl) 10 meq ONCE ONCE PO Last administered on 11/06/17at 21: 05; Start 11/06/17 at 21:00; Stop 11/06/17 at 21:01; Status DC Sodium Chloride (NS Flush) 2 ml UNSCH PRN IV FLUSH FLUSH AFTER USING IV ACCESS ; Start 11/06/17 at 23:30 Sodium Chloride (NS Flush) 2 ml BID IV FLUSH Last administered on 11/10/17at 21: 00; Start 11/07/17 at 09:00 Ondansetron HCl (Zofran Inj) 4 mg Q6H PRN IVP NAUSEA OR VOMITING; Start at 23:30 Heparin Sodium (Porcine) (Heparin Inj) 5,000 units Q8H SQ ; Start 11/06/17 at 23: 30; Stop 11/06/17 at 23:30; Status DC Naloxone HCl (Narcan Inj) 0.4 mg UNSCH PRN IV PUSH SEE LABEL COMMENTS; Start at 23:30 Senna/Docusate Sodium (Miranda-Colace) 1 tab BID PO Last administered on 11/10/17at 21:10; Start 11/07/17 at 09:00 Magnesium Hydroxide (Milk Of Magnesia Liq) 30 ml Q12H PRN PO Mild constipation ; Start 11/06/17 at 23:30 Sennosides (Senokot) 17.2 mg Q12H PRN PO Moderate constipation; Start 11/06/17 at 23:30 Bisacodyl (Dulcolax Supp) 10 mg DAILY PRN RECTAL SEVERE CONSITIPATION/ IF NPO ; Start 11/06/17 at 23:30 Lactulose (Lactulose Liq) 30 ml DAILY PRN PO SEVERE CONSITIPATION/ IF PO; Start 11/06/17 at 23:30 Morphine Sulfate (Morphine Inj) 4 mg Q3H PRN IV PUSH pain 6-10; Start 11/06/17 at 23:30 Bumetanide (Bumetanide) 2 mg DAILY PO Last administered on 11/08/17at 08:29; Start 11/07/17 at 09:00; Stop 11/08/17 at 09:20; Status DC Dabigatran (Pradaxa) 150 mg DAILY PO Last administered on 11/10/17at 10:26; Start 11/07/17 at 09:00 Levetriacetam (Keppra) 500 mg BID PO Last administered on 11/10/17 21:10; Start 11/07/17 at 09:00 Pantoprazole Sodium (Protonix) 40 mg DAILY PO Last administered on 11/10/17 10: 25; Start 11/07/17 at 09:00 Ceftriaxone Sodium 1000 mg/ Sodium Chloride 100 ml @ 200 mls/hr Q24H IV Last administered on 11/11/17 04:13; Start 11/07/17 at 04:00 Potassium Chloride (KCl) 20 meq ONCE ONCE PO Last administered on 11/07/17at 11: 29; Start 11/07/17 at 10:30; Stop 11/07/17 at 10:36; Status DC Gadodiamide (Omniscan Pf Inj) 20 ml STK-MED ONCE IVCONTRAST Last administered on 11/07/17 14:10; Start 11/07/17 at 14:10; Stop 11/07/17 at 14:11; Status DC Magnesium Sulfate/ Dextrose 100 ml @ 100 mls/hr ONCE ONCE IV Last administered on 11/08/17at 08:29; Start 11/08/17 at 08:00; Stop 11/08/17 at 08:59; Status DC Potassium Chloride 100 ml @ 50 mls/hr Q2H IV Last administered on 11/08/17at 12: 19; Start 11/08/17 at 09:00; Stop 11/08/17 at 12:59; Status DC Potassium Chloride (KCl) 60 meq ONCE ONCE PO Last administered on 11/08/17 08: 30; Start 11/08/17 at 08:00; Stop 11/08/17 at 08:01; Status DC Potassium Chloride 100 ml @ 50 mls/hr Q2H IV Last administered on 11/09/17at 23: 30; Start 11/09/17 at 13:00; Stop 11/09/17 at 22:59; Status DC Guaifenesin/ Codeine Phosphate (Robitussin Ac 200-20 Mg/10 ml Liq) 10 ml Q6H PRN PO COUGH; Start 11/09/17 at 11:45 A/P Assessment and Plan //Progressive weakness Likely secondary to chemotherapy received last Sunday Oncology consulted, Dr. Frank, appreciate recommendations CT of the head shows prior right craniotomy without current mass effect or shift PT recommends rehab. = MRI reviewed. Oncology following. Appreciate assistance. //Glioblastoma Continue Keppra for seizure prophylaxis Appreciate oncology input //Left lower extremity DVT Continue home Pradaxa //Urinary tract infection UA consistent with urinary tract infection despite 10 squamous epithelial cells Urine culture pending Rocephin = 4/5. Gram-negative irene. Follow-up sensitivities. //Hypokalemia. = 4/5. =2.5. Replace. Stop Bumex. Continue to monitor-replace again We will replace Check a.m. labs Family to meet with hospice to get more information FEN Regular diet Ns at 100 cc/hr Electrolytes: Status post oral potassium repletion, monitor BMP Pradaxa Discharge Planning Pending improvement with possible SNF discharge Melvin Whitfield DO Nov 11, 2017 10:16
[2017-11-11] MEDS: levETIRAcetam 500 MG TAB PO SCH ×2 (10:29→20:54)
[2017-11-11] MEDS: PANTOPRAZOLE SOD 40 MG DELAYED RELEASE TAB PO SCH (10:30)
[2017-11-11] MEDS: DABIGATRAN ETEXILATE 150 MG CAP PO SCH (10:30)
[2017-11-11] MEDS: POTASSIUM CHLOR 20 MEQ PREMIX 100 ML IV SCH ×5 (11:25→20:54)
[2017-11-11] MEDS ORDERED: hydrALAZINE HCL 25 MG TAB PO PRN (14:00)
[2017-11-11] MEDS ORDERED: cloNIDine HCL 0.1 MG TAB PO PRN (14:00)
[2017-11-12] VITALS (12 sets, daily range): BP systolic 122–145; BP diastolic 68–82; PULSE 69–86; RESP 16–20; TEMP 98.2–99.7; O2SAT 94–96
[2017-11-12] MEDS: cefTRIAXone INJ 1,000 MG in SODIUM CHLORIDE 0.9% INJ 100 ML IV SCH (03:55)
--- NOTE | 2017-11-12 07:43 | PD.ONC.PN ---
Subjective Subjective Remarks Denies headache. Slightly confused. No CP/SOB. No N/V. Objective Data Date Time Temp Pulse Resp B/P (MAP) Pulse Ox O2 Delivery O2 Flow Rate FiO2 11/12/17 04:00 98.3 74 16 145/78 (100) 94 11/12/17 04:00 81 11/12/17 00:00 86 11/12/17 00:00 99.7 79 16 143/79 (100) 94 11/11/17 20:00 98.6 87 18 129/68 (88) 98 11/11/17 20:00 98 11/11/17 17:17 98.8 90 18 140/70 (93) 94 11/11/17 16:45 84 11/11/17 12:45 98.4 80 16 133/71 (91) 95 11/11/17 12:30 87 11/11/17 08:52 98.7 78 16 117/74 (88) 96 11/11/17 08:30 72 11/12/17 11/12/17 11/12/17 07:00 15:00 23:00 Intake Total 240 ml Balance 240 ml Result Diagram: 11/11/1751011/11/17 0511 Administered Medications Medications (Trade) Dose Ordered Sig/Felipe Route PRN Reason Start Time Stop Time Status Last Admin Dose Admin Sodium Chloride 1,000 ml @ 100 mls/hr Q10H IV 11/06/17 19:45 11/11/17 20:55 Sodium Chloride (NS Flush) 2 ml BID IV FLUSH 11/07/17 09:00 11/11/17 20:54 Senna/Docusate Sodium (Miranda-Colace) 1 tab BID PO 11/07/17 09:00 11/10/17 21:10 Dabigatran (Pradaxa) 150 mg DAILY PO 11/07/17 09:00 11/11/17 10:30 Levetriacetam (Keppra) 500 mg BID PO 11/07/17 09:00 11/11/17 20:54 Pantoprazole Sodium (Protonix) 40 mg DAILY PO 11/07/17 09:00 11/11/17 10:30 Ceftriaxone Sodium 1000 mg/ Sodium Chloride 100 ml @ 200 mls/hr Q24H IV 11/07/17 04:00 11/12/17 03:55 Objective Remarks GENERAL: Well-nourished, well-developed patient. SKIN: Warm and dry. HEAD: Normocephalic. EYES: No scleral icterus. No injection or drainage. NECK: Supple, trachea midline. No JVD or lymphadenopathy. LYMPHATIC: No adenopathy. CARDIOVASCULAR: Regular rate and rhythm without murmurs. RESPIRATORY: Breath sounds equal bilaterally. No accessory muscle use. GASTROINTESTINAL: Abdomen soft, non-tender, nondistended. EXTREMITIES: No cyanosis, or edema. MUSCULOSKELETAL: Adequate muscle tone. NEUROLOGICAL: No obvious focal deficit. Awake, alert, oriented to self. Assessment/Plan Problem List: (1) Glioblastoma multiforme ICD Codes: C71.9 - Malignant neoplasm of brain, unspecified Plan: --MRI with perfusion showed new enhancing nodule next to the main mass c/ w progression of disease. Edema has decreased. Prognosis is poor. Patient and family have decided to have hospice support. --was diagnosed with a glioblastoma in May. had a right craniotomy with resection of about 80% of the tumor. (2) History of DVT (deep vein thrombosis) ICD Codes: Z86.718 - Personal history of other venous thrombosis and embolism Plan: --on Pradaxa (3) Urinary tract infection ICD Codes: N39.0 - Urinary tract infection, site not specified Status: Chronic Plan: --Cx + enterobacter. --on Rocephin Assessment 77y/o female with glioblastoma, admitted with increased weakness. h.o Glioblastoma multiforme. Left lower extremity deep venous thrombosis. Hypothyroidism Osteoarthritis. Plan 1. Await hospice placement. 2. continue supportive care. Osvaldo Frank MD Nov 12, 2017 07:43
[2017-11-12] MEDS: SODIUM CHLORIDE 0.9% FLUSH 10 ML FLUSH IV FLUSH SCH ×2 (09:00→19:55)
[2017-11-12] MEDS: levETIRAcetam 500 MG TAB PO SCH ×2 (09:01→21:55)
[2017-11-12] MEDS: DABIGATRAN ETEXILATE 150 MG CAP PO SCH (09:01)
[2017-11-12] MEDS: DOCUSATE SODIUM 50 MG/SENNA 8.6 MG TAB PO SCH ×2 (09:01→21:55)
[2017-11-12] MEDS: PANTOPRAZOLE SOD 40 MG DELAYED RELEASE TAB PO SCH (09:01)
[2017-11-12 09:03] LABS: AUTOMATED NEUTROPHIL # 2.2 TH/MM3 (1.8-7.7); BASOPHIL % 0.5 % (0.0-2.0); EOSINOPHIL # 0.2 TH/MM3 (0-0.4); EOSINOPHIL % 5.2 % (0.0-4.0); HEMATOCRIT 35.9 % (35.0-46.0); HEMOGLOBIN 12.1 GM/DL (11.6-15.3); LYMPH % 25.8 % (9.0-44.0); MEAN CELL VOLUME 88.7 FL (80.0-100.0); MEAN CORPUSCULAR HGB CONC 33.8 % (32.0-36.0); MEAN PLATELET VOLUME 8.5 FL (7.0-11.0); MONO % 12.7 % (0.0-8.0); MONOCYTE # 0.5 TH/MM3 (0-0.9); NEUT % 55.8 % (16.0-70.0); PLATELET COUNT 165 TH/MM3 (150-450); RED BLOOD COUNT 4.04 MIL/MM3 (4.00-5.30); RED CELL DISTRIBUTION WIDTH 15.9 % (11.6-17.2)
[2017-11-12 09:48] LABS: ALBUMIN 2.2 GM/DL (3.4-5.0); AST (GOT) 13 U/L (15-37); BICARBONATE 23.9 MEQ/L (21.0-32.0); BLOOD UREA NITROGEN 6 MG/DL (7-18); CALCIUM 8.7 MG/DL (8.5-10.1); CHLORIDE 109 MEQ/L (98-107); CREATININE 0.56 MG/DL (0.50-1.00); GLOMERULAR FILTRATION RATE 104 ML/MIN (>89); GLUCOSE,RANDOM 105 MG/DL (74-106); MAGNESIUM 1.8 MG/DL (1.5-2.5); SODIUM (NA) 141 MEQ/L (136-145)
[2017-11-12 09:51] LABS: ALKALINE PHOSPHATASE 49 U/L (45-117); ALT (GPT) 13 U/L (10-53); PHOSPHORUS 3.5 MG/DL (2.5-4.9); TOTAL BILIRUBIN ADULT 0.6 MG/DL (0.2-1.0); TOTAL PROTEIN 5.3 GM/DL (6.4-8.2)
[2017-11-12] MEDS: SODIUM CHLOR 0.9% 1000 ML INJ 1,000 ML IV SCH ×2 (10:03→19:54)
--- NOTE | 2017-11-12 10:10 | HHI.PR ---
Subjective Remarks 77-year-old female with a past medical history significant for glioblastoma and left lower extremity DVT anticoagulated on Pradaxa was brought to the emergency department by her for evaluation of progressive weakness over the last 24 hours. The patient is interviewed alone and states that she feels fine now. She is able to answer my questions slowly however cannot tell me exactly why she came to the emergency department. Per emergency room documentation, the patient's stated that she had a second round of double dose chemotherapy for her glioblastoma on Sunday. He reports that over the last week she has had a diminished appetite. Denies any vomiting or diarrhea. No chest pain or shortness of breath. No abdominal pain. Increasing weakness without lateralizing signs/symptoms. 4-5 Patient says she is feeling all right this morning. Denies any pain. 4-6 I discussed with her and case management and RN and oncology patient has been seen by palliative care Very lethargic today May need SNF with hospice I do not believe hospice is seen her yet today Continue current antibiotic treatment 4-7 more alert today much more talkative today dw RN AND PT AND AND CASE MANGEMENT AM LABS 4-8 much more alert today eating breakfast discussed with and patient and RN and case management Wants to go to [facility] at discharge with hospice involvement Place potassium A.m. labs 4-9 MUCH MORE ALERT TODAY EATING BREAKFAST WANTS [facility] AT DC AM LABS DC TOMORROW TO SNF?? KENDY RN AND PT AND CM Objective Vitals Vital Signs Date Time Temp Pulse Resp B/P (MAP) Pulse Ox O2 Delivery O2 Flow Rate FiO2 11/12/17 08:55 98.2 69 20 141/68 (92) 96 11/12/17 04:00 98.3 74 16 145/78 (100) 94 11/12/17 04:00 81 11/12/17 00:00 86 11/12/17 00:00 99.7 79 16 143/79 (100) 94 11/11/17 20:00 98.6 87 18 129/68 (88) 98 11/11/17 20:00 98 11/11/17 17:17 98.8 90 18 140/70 (93) 94 11/11/17 16:45 84 11/11/17 12:45 98.4 80 16 133/71 (91) 95 11/11/17 12:30 87 I/O 11/11/17 11/11/17 11/11/17 11/12/17 11/12/17 11/12/17 07:00 15:00 23:00 07:00 15:00 23:00 Intake Total 220 ml 1950 ml 240 ml Output Total 100 ml Balance 120 ml 1950 ml 240 ml Intake Oral 120 ml 840 ml 240 ml IV Total 100 ml 1110 ml Output Urine Total 100 ml # Voids 4 4 # Bowel Movements 1 Result Diagram: 11/12/17 0725 11/12/17 0735 Other Results Laboratory Tests Test 11/09/17 10:35 11/10/17 05:35 11/11/17 05:11 11/12/17 07:25 White Blood Count 7.1 TH/MM3 6.5 TH/MM3 4.8 TH/MM3 4.0 TH/MM3 Red Blood Count 4.58 MIL/MM3 4.13 MIL/MM3 3.97 MIL/MM3 4.04 MIL/MM3 Hemoglobin 14.0 GM/DL 12.5 GM/DL 12.0 GM/DL 12.1 GM/DL Hematocrit 40.3 % 36.8 % 35.0 % 35.9 % Mean Corpuscular Volume 88.1 FL 89.2 FL 88.1 FL 88.7 FL Mean Corpuscular Hemoglobin 30.5 PG 30.4 PG 30.2 PG 30.0 PG Mean Corpuscular Hemoglobin Concent 34.6 % 34.0 % 34.3 % 33.8 % Red Cell Distribution Width 16.3 % 16.0 % 15.7 % 15.9 % Platelet Count 168 TH/MM3 159 TH/MM3 154 TH/MM3 165 TH/MM3 Mean Platelet Volume 8.1 FL 8.6 FL 8.5 FL 8.5 FL Neutrophils (%) (Auto) 66.5 % 61.6 % 59.0 % 55.8 % Lymphocytes (%) (Auto) 18.1 % 21.0 % 22.1 % 25.8 % Monocytes (%) (Auto) 13.2 % 15.0 % 13.7 % 12.7 % Eosinophils (%) (Auto) 1.8 % 2.1 % 4.8 % 5.2 % Basophils (%) (Auto) 0.4 % 0.3 % 0.4 % 0.5 % Neutrophils # (Auto) 4.7 TH/MM3 4.0 TH/MM3 2.8 TH/MM3 2.2 TH/MM3 Lymphocytes # (Auto) 1.3 TH/MM3 1.4 TH/MM3 1.0 TH/MM3 1.0 TH/MM3 Monocytes # (Auto) 0.9 TH/MM3 1.0 TH/MM3 0.7 TH/MM3 0.5 TH/MM3 Eosinophils # (Auto) 0.1 TH/MM3 0.1 TH/MM3 0.2 TH/MM3 0.2 TH/MM3 Basophils # (Auto) 0.0 TH/MM3 0.0 TH/MM3 0.0 TH/MM3 0.0 TH/MM3 CBC Comment DIFF FINAL DIFF FINAL DIFF FINAL DIFF FINAL Differential Comment Blood Urea Nitrogen 9 MG/DL 11 MG/DL 7 MG/DL Creatinine 0.68 MG/DL 0.68 MG/DL 0.56 MG/DL Random Glucose 159 MG/DL 139 MG/DL 116 MG/DL Total Protein 5.9 GM/DL 5.3 GM/DL 5.0 GM/DL Albumin 2.8 GM/DL 2.5 GM/DL 2.1 GM/DL Calcium Level 8.4 MG/DL 8.6 MG/DL 8.5 MG/DL Phosphorus Level 3.1 MG/DL 2.6 MG/DL 2.8 MG/DL Magnesium Level 1.8 MG/DL 1.8 MG/DL 1.7 MG/DL Alkaline Phosphatase 58 U/L 52 U/L 48 U/L Aspartate Amino Transf (AST/SGOT) 23 U/L 11 U/L 15 U/L Alanine Aminotransferase (ALT/SGPT) 26 U/L 18 U/L 14 U/L Total Bilirubin 1.3 MG/DL 1.2 MG/DL 0.8 MG/DL Sodium Level 140 MEQ/L 141 MEQ/L 142 MEQ/L Potassium Level 2.9 MEQ/L 3.9 MEQ/L 3.0 MEQ/L Chloride Level 104 MEQ/L 110 MEQ/L 108 MEQ/L Carbon Dioxide Level 28.0 MEQ/L 24.6 MEQ/L 24.7 MEQ/L Anion Gap 8 MEQ/L 6 MEQ/L 9 MEQ/L Estimat Glomerular Filtration Rate 83 ML/MIN 83 ML/MIN 104 ML/MIN Hemoglobin A1c 5.9 % Free Thyroxine 1.66 NG/DL Thyroid Stimulating Hormone 3rd Gen 0.165 uIU/ML Test 11/12/17 07:35 Blood Urea Nitrogen 6 MG/DL Creatinine 0.56 MG/DL Random Glucose 105 MG/DL Total Protein 5.3 GM/DL Albumin 2.2 GM/DL Calcium Level 8.7 MG/DL Phosphorus Level 3.5 MG/DL Magnesium Level 1.8 MG/DL Alkaline Phosphatase 49 U/L Aspartate Amino Transf (AST/SGOT) 13 U/L Alanine Aminotransferase (ALT/SGPT) 13 U/L Total Bilirubin 0.6 MG/DL Sodium Level 141 MEQ/L Potassium Level 3.6 MEQ/L Chloride Level 109 MEQ/L Carbon Dioxide Level 23.9 MEQ/L Anion Gap 8 MEQ/L Estimat Glomerular Filtration Rate 104 ML/MIN Imaging Last Impressions Head Magnetic Resonance Angiography 11/07/17 0000 Signed Impressions: Service Date/Time: Tuesday, November 07, 2017 12:59 - CONCLUSION: There is evidence of some blood volume in the new enhancing nodule adjacent to the primary tumor. Los Navarro MD Brain MRI 11/07/17 0000 Signed Impressions: Service Date/Time: Tuesday, November 07, 2017 12:59 - CONCLUSION: The dominant mass in the right parietal lobe has decreased in size slightly, but there is evidence of recurrent tumor with enhancement along the biopsy tract and a new 7 mm enhancing nodule adjacent to the superior lateral margin of the residual mass. Decrease in the amount of surrounding edema when compared to May 2017. Los Navarro MD Head CT 11/06/171925 Signed Impressions: Service Date/Time: Monday, November 06, 2017 20:53 - CONCLUSION: 1. Prior right craniotomy with encephalomalacia in the operative bed and some punctate calcifications. No current mass effect or shift. There is no recent infarct identified. Jagdish Castillo MD Chest X-Ray 11/06/171925 Signed Impressions: Service Date/Time: Monday, November 06, 2017 19:39 - CONCLUSION: 1. Elevated right hemidiaphragm. Basilar atelectasis. Jagdish Castillo MD Objective Remarks GENERAL: More awake and alert than yesterday talkative and somewhat cooperative SKIN: Warm and dry. HEAD: Atraumatic. Normocephalic. EYES: Pupils equal and round. No scleral icterus. No injection or drainage. Extraocular muscles intact ENT: No nasal bleeding or discharge. Mucous membranes pink and moist. Tongue is midline supple NECK: Trachea midline. No JVD. CARDIOVASCULAR: Regular rate and rhythm. S1-S2 no S3 or S4 RESPIRATORY: No accessory muscle use. Clear to auscultation. Breath sounds equal bilaterally. GASTROINTESTINAL: Abdomen soft, non-tender, nondistended. Hepatic and splenic margins not palpable. MUSCULOSKELETAL: Extremities without clubbing, cyanosis, or edema. No obvious deformities. NEUROLOGICAL: Awake and alert. No obvious cranial nerve deficits. Motor grossly within normal limits. 4 out of 5 muscle strength in the arms and legs. Normal speech but very lethargic. PSYCHIATRIC: INAppropriate mood and affect; insight and judgment ABnormal. Procedures NONE Medications and IVs Current Medications Sodium Chloride 1,000 ml @ 100 mls/hr Q10H IV Last administered on 11/12/17at 10 :03; Start 11/06/17 at 19:45 Potassium Chloride (KCl) 10 meq ONCE ONCE PO Last administered on 11/06/17at 21: 05; Start 11/06/17 at 21:00; Stop 11/06/17 at 21:01; Status DC Sodium Chloride (NS Flush) 2 ml UNSCH PRN IV FLUSH FLUSH AFTER USING IV ACCESS ; Start 11/06/17 at 23:30 Sodium Chloride (NS Flush) 2 ml BID IV FLUSH Last administered on 11/11/17at 20: 54; Start 11/07/17 at 09:00 Ondansetron HCl (Zofran Inj) 4 mg Q6H PRN IVP NAUSEA OR VOMITING; Start at 23:30 Heparin Sodium (Porcine) (Heparin Inj) 5,000 units Q8H SQ ; Start 11/06/17 at 23: 30; Stop 11/06/17 at 23:30; Status DC Naloxone HCl (Narcan Inj) 0.4 mg UNSCH PRN IV PUSH SEE LABEL COMMENTS; Start at 23:30 Senna/Docusate Sodium (Miranda-Colace) 1 tab BID PO Last administered on 11/12/17at 09:01; Start 11/07/17 at 09:00 Magnesium Hydroxide (Milk Of Magnesia Liq) 30 ml Q12H PRN PO Mild constipation ; Start 11/06/17 at 23:30 Sennosides (Senokot) 17.2 mg Q12H PRN PO Moderate constipation; Start 11/06/17 at 23:30 Bisacodyl (Dulcolax Supp) 10 mg DAILY PRN RECTAL SEVERE CONSITIPATION/ IF NPO ; Start 11/06/17 at 23:30 Lactulose (Lactulose Liq) 30 ml DAILY PRN PO SEVERE CONSITIPATION/ IF PO; Start 11/06/17 at 23:30 Morphine Sulfate (Morphine Inj) 4 mg Q3H PRN IV PUSH pain 6-10; Start 11/06/17 at 23:30 Bumetanide (Bumetanide) 2 mg DAILY PO Last administered on 11/08/17 08:29; Start 11/07/17 at 09:00; Stop 11/08/17 at 09:20; Status DC Dabigatran (Pradaxa) 150 mg DAILY PO Last administered on 11/12/17 09:01; Start 11/07/17 at 09:00 Levetriacetam (Keppra) 500 mg BID PO Last administered on 11/12/17 09:01; Start 11/07/17 at 09:00 Pantoprazole Sodium (Protonix) 40 mg DAILY PO Last administered on 11/12/17 09: 01; Start 11/07/17 at 09:00 Ceftriaxone Sodium 1000 mg/ Sodium Chloride 100 ml @ 200 mls/hr Q24H IV Last administered on 11/12/17at 03:55; Start 11/07/17 at 04:00 Potassium Chloride (KCl) 20 meq ONCE ONCE PO Last administered on 11/07/17at 11: 29; Start 11/07/17 at 10:30; Stop 11/07/17 at 10:36; Status DC Gadodiamide (Omniscan Pf Inj) 20 ml STK-MED ONCE IVCONTRAST Last administered on 11/07/17at 14:10; Start 11/07/17 at 14:10; Stop 11/07/17 at 14:11; Status DC Magnesium Sulfate/ Dextrose 100 ml @ 100 mls/hr ONCE ONCE IV Last administered on 11/08/17at 08:29; Start 11/08/17 at 08:00; Stop 11/08/17 at 08:59; Status DC Potassium Chloride 100 ml @ 50 mls/hr Q2H IV Last administered on 11/08/17at 12: 19; Start 11/08/17 at 09:00; Stop 11/08/17 at 12:59; Status DC Potassium Chloride (KCl) 60 meq ONCE ONCE PO Last administered on 11/08/17at 08: 30; Start 11/08/17 at 08:00; Stop 11/08/17 at 08:01; Status DC Potassium Chloride 100 ml @ 50 mls/hr Q2H IV Last administered on 11/09/17at 23: 30; Start 11/09/17 at 13:00; Stop 11/09/17 at 22:59; Status DC Guaifenesin/ Codeine Phosphate (Robitussin Ac 200-20 Mg/10 ml Liq) 10 ml Q6H PRN PO COUGH; Start 11/09/17 at 11:45 Potassium Chloride 100 ml @ 50 mls/hr Q2H IV Last administered on 11/11/17at 20: 54; Start 11/11/17 at 11:00; Stop 11/11/17 at 20:59; Status DC Clonidine (Catapres) 0.1 mg Q4H PRN PO SBP>160, DBP>90; Start 11/11/17 at 14:00 Hydralazine HCl (Apresoline) 25 mg Q8HR PRN PO sbp >160; Start 11/11/17 at 14:00 A/P Assessment and Plan //Progressive weakness Likely secondary to chemotherapy received last Sunday Oncology consulted, Dr. Frank, appreciate recommendations CT of the head shows prior right craniotomy without current mass effect or shift PT recommends rehab. = MRI reviewed. Oncology following. Appreciate assistance. //Glioblastoma Continue Keppra for seizure prophylaxis Appreciate oncology input ANOTHER OCCURRENCE OF A GB //Left lower extremity DVT Continue home Pradaxa //Urinary tract infection UA consistent with urinary tract infection despite 10 squamous epithelial cells Urine culture pending Rocephin = 4/5. Gram-negative irene. Follow-up sensitivities. //Hypokalemia. = 4/5. =2.5. Replace. Stop Bumex. Continue to monitor-replace again We will replace Check a.m. labs Family to meet with hospice to get more information FEN Regular diet Ns at 100 cc/hr Electrolytes: Status post oral potassium repletion, monitor BMP Pradaxa WILL GO TO SNF [facility] TOMORROW Discharge Planning Pending improvement with possible SNF discharge Melvin Whitfield DO Nov 12, 2017 10:10
--- NOTE | 2017-11-12 18:15 | HHI.HCPN ---
Reason for visit a. To assist with evaluation and management of symptoms including: lethargy ; dysuria; decreased appetite b. To assist medical decision maker(s) with: better understanding of current medical conditions; weighing benefits/burdens of medical treatment options; making medical treatment decisions. . Subjective/Interval History Patient is definitely more awake and alert at time of my visit today. She is still very slow in responding to questions, but she can remain focused. There is more smiling. reports food intake is slightly better. Denies pain, Denies SOB. has made a decision regarding post discharge care. He is electing hospice and wants the patient to be at [facility]. She will be transferred there when hospitalist indicates she is ready for discharge. . Family/friend interactions Spoke with for about 15 minutes with patient at bedside. He seems much more at ease having made a decision regarding hospice and assisted placement. . Advance Directives Living Will: Copy in medical record Health Care Surrogate: Copy in medical record Durable Power of Spreader Box Operator: Never completed Advance Directive Specifics Date completed: Living will and health care surrogate designation were completed on 08/23/2009. . Health Care Surrogate(s): Designated health care surrogate is the patient's spouse -- Sandro Newman. . Documented care wishes: Patient's living will is a typical [place] living will indicating that she would NOT want life prolonging measures should she be determined to have an end stage condition, terminal illness, or persistent vegetative state. . Significant change in goals: has confirmed his desire for hospice services for the patient and wants her cared for at [facility] . Objective Vital Signs Date Time Temp Pulse Resp B/P (MAP) Pulse Ox O2 Delivery O2 Flow Rate FiO2 11/12/17 12:33 98.2 86 18 143/82 (102) 96 11/12/17 12:00 73 11/12/17 08:55 98.2 69 20 141/68 (92) 96 11/12/17 08:00 71 11/12/17 04:00 98.3 74 16 145/78 (100) 94 11/12/17 04:00 81 11/12/17 00:00 86 11/12/17 00:00 99.7 79 16 143/79 (100) 94 11/11/17 20:00 98.6 87 18 129/68 (88) 98 11/11/17 20:00 98 Intake & Output 11/12/17 11/12/17 07:00 19:00 Intake Total 1350 ml 1350 ml Output Total 800 ml Balance 1350 ml 550 ml Intake Oral 240 ml 400 ml IV Total 1110 ml 950 ml Output Urine Total 800 ml # Voids 4 . Physical Exam CONSTITUTIONAL/GENERAL: This is a pale, adequately nourished patient, in no apparent distress. Able to smile. Generalized weakness. Answers a few question appropriately but there are long pauses between question and response. TUBES/LINES/DRAINS: Peripheral IV SKIN: No jaundice, rashes.. Skin tear/abrasion left elbow. Skin temperature appropriate. Not diaphoretic. EYES: Pupils equal and round. Extraocular motions intact. No scleral icterus. No injection or drainage. Fundi not examined. NECK: Trachea midline. CARDIOVASCULAR: Regular rate and rhythm without murmurs, gallops, or rubs. No JVD. RESPIRATORY/CHEST: Symmetric, unlabored respirations. Clear to auscultation. Breath sounds equal bilaterally. No wheezes, rales, or rhonchi. GASTROINTESTINAL: Abdomen soft, non-tender, nondistended. No hepato-splenomegaly , or palpable masses. No guarding. Bowel sounds present. GENITOURINARY: Without palpable bladder distension. External urine collection device MUSCULOSKELETAL: Extremities without clubbing, cyanosis. 1 + edema left ankle/ foot.. LYMPHATICS: Not examined NEUROLOGICAL: Remains awake through visit. Responds mostly appropriately to questions, but there are long pauses between questions and answer. Motor and sensory grossly within normal limits. Follows simple commands. Moves all extremities. PSYCHIATRIC: No obvious anxiety/depression. No apparent hallucinations or other psychotic thought process. . Diagnostic Tests Laboratory Laboratory Tests Test 11/10/17 05:35 11/11/17 05:11 11/12/17 07:25 11/12/17 07:35 White Blood Count 6.5 TH/MM3 (4.0-11.0) 4.8 TH/MM3 (4.0-11.0) 4.0 TH/MM3 (4.0-11.0) Red Blood Count 4.13 MIL/MM3 (4.00-5.30) 3.97 MIL/MM3 (4.00-5.30) 4.04 MIL/MM3 (4.00-5.30) Hemoglobin 12.5 GM/DL (11.6-15.3) 12.0 GM/DL (11.6-15.3) 12.1 GM/DL (11.6-15.3) Hematocrit 36.8 % (35.0-46.0) 35.0 % (35.0-46.0) 35.9 % (35.0-46.0) Mean Corpuscular Volume 89.2 FL (80.0-100.0) 88.1 FL (80.0-100.0) 88.7 FL (80.0-100.0) Mean Corpuscular Hemoglobin 30.4 PG (27.0-34.0) 30.2 PG (27.0-34.0) 30.0 PG (27.0-34.0) Mean Corpuscular Hemoglobin Concent 34.0 % (32.0-36.0) 34.3 % (32.0-36.0) 33.8 % (32.0-36.0) Red Cell Distribution Width 16.0 % (11.6-17.2) 15.7 % (11.6-17.2) 15.9 % (11.6-17.2) Platelet Count 159 TH/MM3 (150-450) 154 TH/MM3 (150-450) 165 TH/MM3 (150-450) Mean Platelet Volume 8.6 FL (7.0-11.0) 8.5 FL (7.0-11.0) 8.5 FL (7.0-11.0) Neutrophils (%) (Auto) 61.6 % (16.0-70.0) 59.0 % (16.0-70.0) 55.8 % (16.0-70.0) Lymphocytes (%) (Auto) 21.0 % (9.0-44.0) 22.1 % (9.0-44.0) 25.8 % (9.0-44.0) Monocytes (%) (Auto) 15.0 % (0.0-8.0) 13.7 % (0.0-8.0) 12.7 % (0.0-8.0) Eosinophils (%) (Auto) 2.1 % (0.0-4.0) 4.8 % (0.0-4.0) 5.2 % (0.0-4.0) Basophils (%) (Auto) 0.3 % (0.0-2.0) 0.4 % (0.0-2.0) 0.5 % (0.0-2.0) Neutrophils # (Auto) 4.0 TH/MM3 (1.8-7.7) 2.8 TH/MM3 (1.8-7.7) 2.2 TH/MM3 (1.8-7.7) Lymphocytes # (Auto) 1.4 TH/MM3 (1.0-4.8) 1.0 TH/MM3 (1.0-4.8) 1.0 TH/MM3 (1.0-4.8) Monocytes # (Auto) 1.0 TH/MM3 (0-0.9) 0.7 TH/MM3 (0-0.9) 0.5 TH/MM3 (0-0.9) Eosinophils # (Auto) 0.1 TH/MM3 (0-0.4) 0.2 TH/MM3 (0-0.4) 0.2 TH/MM3 (0-0.4) Basophils # (Auto) 0.0 TH/MM3 (0-0.2) 0.0 TH/MM3 (0-0.2) 0.0 TH/MM3 (0-0.2) CBC Comment DIFF FINAL DIFF FINAL DIFF FINAL Differential Comment Blood Urea Nitrogen 11 MG/DL (7-18) 7 MG/DL (7-18) 6 MG/DL (7-18) Creatinine 0.68 MG/DL (0.50-1.00) 0.56 MG/DL (0.50-1.00) 0.56 MG/DL (0.50-1.00) Random Glucose 139 MG/DL (74-106) 116 MG/DL (74-106) 105 MG/DL (74-106) Total Protein 5.3 GM/DL (6.4-8.2) 5.0 GM/DL (6.4-8.2) 5.3 GM/DL (6.4-8.2) Albumin 2.5 GM/DL (3.4-5.0) 2.1 GM/DL (3.4-5.0) 2.2 GM/DL (3.4-5.0) Calcium Level 8.6 MG/DL (8.5-10.1) 8.5 MG/DL (8.5-10.1) 8.7 MG/DL (8.5-10.1) Phosphorus Level 2.6 MG/DL (2.5-4.9) 2.8 MG/DL (2.5-4.9) 3.5 MG/DL (2.5-4.9) Magnesium Level 1.8 MG/DL (1.5-2.5) 1.7 MG/DL (1.5-2.5) 1.8 MG/DL (1.5-2.5) Alkaline Phosphatase 52 U/L (45-117) 48 U/L (45-117) 49 U/L (45-117) Aspartate Amino Transf (AST/SGOT) 11 U/L (15-37) 15 U/L (15-37) 13 U/L (15-37) Alanine Aminotransferase (ALT/SGPT) 18 U/L (10-53) 14 U/L (10-53) 13 U/L (10-53) Total Bilirubin 1.2 MG/DL (0.2-1.0) 0.8 MG/DL (0.2-1.0) 0.6 MG/DL (0.2-1.0) Sodium Level 141 MEQ/L (136-145) 142 MEQ/L (136-145) 141 MEQ/L (136-145) Potassium Level 3.9 MEQ/L (3.5-5.1) 3.0 MEQ/L (3.5-5.1) 3.6 MEQ/L (3.5-5.1) Chloride Level 110 MEQ/L (98-107) 108 MEQ/L (98-107) 109 MEQ/L (98-107) Carbon Dioxide Level 24.6 MEQ/L (21.0-32.0) 24.7 MEQ/L (21.0-32.0) 23.9 MEQ/L (21.0-32.0) Anion Gap 6 MEQ/L (5-15) 9 MEQ/L (5-15) 8 MEQ/L (5-15) Estimat Glomerular Filtration Rate 83 ML/MIN (>89) 104 ML/MIN (>89) 104 ML/MIN (>89) . Result Diagram: 11/12/17 0725 11/12/17 0735 Microbiology Microbiology Date/Time Source Procedure Growth Status 11/06/17 20:00 Urine Clean Catch Urine Culture - Final Enterobacter Aerogenes Complete . Imaging Last Impressions Head Magnetic Resonance Angiography 11/07/17 Signed Impressions: Service Date/Time: Tuesday, November 07, 2017 12:59 - CONCLUSION: There is evidence of some blood volume in the new enhancing nodule adjacent to the primary tumor. Los Navarro MD Brain MRI 11/07/17 0000 Signed Impressions: Service Date/Time: Tuesday, November 07, 2017 12:59 - CONCLUSION: The dominant mass in the right parietal lobe has decreased in size slightly, but there is evidence of recurrent tumor with enhancement along the biopsy tract and a new 7 mm enhancing nodule adjacent to the superior lateral margin of the residual mass. Decrease in the amount of surrounding edema when compared to May 2017. Los Navarro MD Head CT 11/06/171925 Signed Impressions: Service Date/Time: Monday, November 06, 2017 20:53 - CONCLUSION: 1. Prior right craniotomy with encephalomalacia in the operative bed and some punctate calcifications. No current mass effect or shift. There is no recent infarct identified. Jagdish Castillo MD Chest X-Ray 11/06/171925 Signed Impressions: Service Date/Time: Monday, November 06, 2017 19:39 - CONCLUSION: 1. Elevated right hemidiaphragm. Basilar atelectasis. Jagdish Castillo MD . Assessment and Plan Disease Oriented Problem List: (1) Glioblastoma multiforme Comment: s/p right craniotomy; radiation therapy; chemotherapy . (2) Urinary tract infection Comment: Growing Enterobacter . (3) Hypothyroidism Comment: Lab from 11/09/17 shows HYPERTHYROIDISM while off any thyroid meds. . (4) Osteoarthritis (5) Deep venous thrombosis Comment: Has been on Pradaxa . Symptom Scale: (1) Pain 0-10 Scale: 0 Comment: Patient has been remarkably free of pain during her illness. . (2) Weakness 0-10 Scale: 10 Comment: Was unable to bear weight and ambulate at time of admission. . (3) Lethargy 0-10 Scale: 6 Comment: Sleeping over 20 hours /day. . (4) Fatigue 0-10 Scale: 6 Pertinent Non-Medical Issues Psychosocial: Patient has been living at home with her spouse who is her primary caregiver. Her 2 children live out of state. Spiritual: Worship and spirituality are important parts of her life. She is [facility] [employer]. Her is a retired hemodialysis patient care specialist. Legal: Living will and healthcare surrogate are completed and on chart. They are dated 08/23/2009. Her is her healthcare surrogate. Ethical issues impacting care: Patient appears cognitively intact but is quite lethargic. . Important Contacts Sandro Bcuk Paty (spouse and health care surrogate) [phone] Dilip Newman (son) [place], [place] [phone] . Prognosis Patient has a glioblastoma now s/p craniotomy; radiation therapy; chemo. Imaging showing new tumor development in spite of treatment. Patient is very lethargic and sleeping 20 hours / day and growing weaker. She is probably not benefitting from ongoing aggressive cancer -directed treatments. Pt and would benefit from hospice services. Anticipate in weeks to a few months. . Code Status: No Code Plan == Code Status: NO CODE. Patient and confirmed desire for NO CODE status during our conversation at bedside on 11/07/17. == Decision Making: Patient is unable to balance the benefits and burdens of treatment options. I feel she is no longer capacitated to make her own health care decisions and there is no reasonable hope that she will regain such capacity. Her designated health care surrogate is her spouse -- Sandro Newman. == Goals of medical treatment: Patient and have decided NOT to go forward with additional cancer directed treatments. They have elected hospice care on discharge. == Symptoms. * Pain: Patient has been remarkably pain free. Except for some recent dysuria , there has been very little discomfort. No further recommendations at his time. * Lethargy/fatigue: Patient has been sleeping easily up to 20 hours a day. She has had extreme fatigue since her craniotomy and it has grown worse. Unclear, at this point, if the increased lethargy is secondary to her UTI or is a symptom of disease progression. Would consider adding systemic steroids, but spouse reports the patient had a very adverse reaction to steroids ( including suicidal ideation) even at very low doses. PCP had prescribed methylphenidate, but pt did not take it. * Weakness: Patient was unable to walk in the day or so prior to this admission. Unclear, initially , if the increased weakness was secondary to her UTI or is a symptom of disease progression. It has not improved with antibiotic treatment-- therefore, weakness is probably from the brain tumor. == Discussed anti-coagulation with Dr. Frank given history of falls. He feels that if patient enrolls with hospice that anti-coagulation should be discontinued. == would like [facility]discharge [facility] at [facility] with hospice care providing additional support. == Discharge planning: Patient will enroll with hospice at time of discharge. Await discharge orders from hospitalist. == Palliative care will continue to follow during course of hospitalization to assist with symptom management and to further clarify goals of medical treatment as the clinical course evolves. . Attestation To help prompt me to consider important information that might be impacting today's encounter and assessment, information from prior notes written by myself or my colleagues may have been "brought forward" into today's note. My signature on this note, however, is an attestation that I personally performed the exam, history, and/or decision-making noted today, and, unless otherwise indicated, the interactions with patient, family, and staff as well as the review of records all occurred today. I also attest that the listed assessment and stated plan reflect my best clinical judgment today based on the combination of historical information, prior notes, and today's exam/ interactions. When time spent is documented, it refers only to time spent today by the signer, or if indicated, combined time spent today by collaborating physician/nurse practitioner. . Ace Starr MD Nov 12, 2017 18:15
[2017-11-13] VITALS (14 sets, daily range): BP systolic 143–152; BP diastolic 71–81; PULSE 61–94; RESP 16–18; TEMP 98–99; O2SAT 96–98
[2017-11-13] MEDS: SODIUM CHLOR 0.9% 1000 ML INJ 1,000 ML IV SCH ×2 (01:45→06:46)
[2017-11-13] MEDS: cefTRIAXone INJ 1,000 MG in SODIUM CHLORIDE 0.9% INJ 100 ML IV SCH (04:52)
[2017-11-13 07:59] LABS: AUTOMATED NEUTROPHIL # 1.9 TH/MM3 (1.8-7.7); BASOPHIL % 0.5 % (0.0-2.0); EOSINOPHIL # 0.2 TH/MM3 (0-0.4); HEMATOCRIT 34.1 % (35.0-46.0); HEMOGLOBIN 11.8 GM/DL (11.6-15.3); LYMPH % 28.1 % (9.0-44.0); MEAN CELL VOLUME 87.1 FL (80.0-100.0); MEAN CORPUSCULAR HGB CONC 34.5 % (32.0-36.0); MEAN PLATELET VOLUME 8.6 FL (7.0-11.0); MONO % 12.7 % (0.0-8.0); MONOCYTE # 0.4 TH/MM3 (0-0.9); NEUT % 53.7 % (16.0-70.0); PLATELET COUNT 168 TH/MM3 (150-450); RED BLOOD COUNT 3.92 MIL/MM3 (4.00-5.30); RED CELL DISTRIBUTION WIDTH 15.5 % (11.6-17.2); WHITE BLOOD COUNT 3.5 TH/MM3 (4.0-11.0)
[2017-11-13] MEDS: SODIUM CHLORIDE 0.9% FLUSH 10 ML FLUSH IV FLUSH SCH (08:21)
[2017-11-13 08:33] LABS: ALBUMIN 2.1 GM/DL (3.4-5.0); AST (GOT) 16 U/L (15-37); BICARBONATE 23.1 MEQ/L (21.0-32.0); BLOOD UREA NITROGEN 5 MG/DL (7-18); CALCIUM 8.5 MG/DL (8.5-10.1); CHLORIDE 111 MEQ/L (98-107); CREATININE 0.53 MG/DL (0.50-1.00); GLOMERULAR FILTRATION RATE 111 ML/MIN (>89); GLUCOSE,RANDOM 106 MG/DL (74-106); MAGNESIUM 1.6 MG/DL (1.5-2.5); SODIUM (NA) 143 MEQ/L (136-145)
[2017-11-13 08:34] LABS: ALT (GPT) 13 U/L (10-53)
[2017-11-13] MEDS: DOCUSATE SODIUM 50 MG/SENNA 8.6 MG TAB PO SCH (08:34)
[2017-11-13] MEDS: PANTOPRAZOLE SOD 40 MG DELAYED RELEASE TAB PO SCH (08:36)
[2017-11-13] MEDS: levETIRAcetam 500 MG TAB PO SCH (08:36)
[2017-11-13 08:37] LABS: ALKALINE PHOSPHATASE 43 U/L (45-117); PHOSPHORUS 3.6 MG/DL (2.5-4.9); TOTAL BILIRUBIN ADULT 0.5 MG/DL (0.2-1.0)
[2017-11-13] MEDS: DABIGATRAN ETEXILATE 150 MG CAP PO SCH (09:00)
--- NOTE | 2017-11-13 09:30 | HHI.PR ---
Subjective Remarks 77-year-old female with a past medical history significant for glioblastoma and left lower extremity DVT anticoagulated on Pradaxa was brought to the emergency department by her for evaluation of progressive weakness over the last 24 hours. The patient is interviewed alone and states that she feels fine now. She is able to answer my questions slowly however cannot tell me exactly why she came to the emergency department. Per emergency room documentation, the patient's stated that she had a second round of double dose chemotherapy for her glioblastoma on Sunday. He reports that over the last week she has had a diminished appetite. Denies any vomiting or diarrhea. No chest pain or shortness of breath. No abdominal pain. Increasing weakness without lateralizing signs/symptoms. 4-5 Patient says she is feeling all right this morning. Denies any pain. 4-6 I discussed with her and case management and RN and oncology patient has been seen by palliative care Very lethargic today May need SNF with hospice I do not believe hospice is seen her yet today Continue current antibiotic treatment 4-7 more alert today much more talkative today dw RN AND PT AND AND CASE MANGEMENT AM LABS 4-8 much more alert today eating breakfast discussed with and patient and RN and case management Wants to go to [facility] at discharge with hospice involvement Place potassium A.m. labs 4-9 MUCH MORE ALERT TODAY EATING BREAKFAST WANTS [facility] AT DC AM LABS DC TOMORROW TO SNF?? DW RN AND PT AND CM 4-10 WANTS TO GO TO SNF TODAY DW RN AND PT AND CM AND SEE 3008 DC TO SNF TODAY [facility] Objective Vitals Vital Signs Date Time Temp Pulse Resp B/P (MAP) Pulse Ox O2 Delivery O2 Flow Rate FiO2 11/13/17 08:22 99.0 81 18 152/71 (98) 96 11/13/17 07:23 69 11/13/17 06:02 64 11/13/17 05:05 61 11/13/17 04:50 98.6 71 16 143/81 (101) 98 11/13/17 04:01 71 11/13/17 03:01 71 11/13/17 02:08 76 11/13/17 01:07 98.0 70 16 145/73 (97) 96 11/13/17 01:05 83 11/13/17 00:03 70 4/9/18 23:05 80 11/12/17 22:00 85 11/12/17 21:05 86 11/12/17 20:07 86 11/12/17 19:41 99.3 83 18 122/72 (89) 94 11/12/17 19:03 82 11/12/17 12:33 98.2 86 18 143/82 (102) 96 11/12/17 12:00 73 I/O 11/12/17 11/12/17 11/12/17 11/13/17 11/13/17 11/13/17 07:00 15:00 23:00 07:00 15:00 23:00 Intake Total 240 ml 1590 ml 1220 ml Output Total 800 ml 950 ml Balance 240 ml 790 ml 270 ml Intake Oral 240 ml 640 ml 120 ml IV Total 950 ml 1100 ml Output Urine Total 800 ml 950 ml # Voids 4 1 Result Diagram: 11/13/17 0631 11/13/17 0631 Other Results Laboratory Tests Test 11/11/17 05:11 11/12/17 07:25 11/12/17 07:35 11/13/17 06:31 White Blood Count 4.8 TH/MM3 4.0 TH/MM3 3.5 TH/MM3 Red Blood Count 3.97 MIL/MM3 4.04 MIL/MM3 3.92 MIL/MM3 Hemoglobin 12.0 GM/DL 12.1 GM/DL 11.8 GM/DL Hematocrit 35.0 % 35.9 % 34.1 % Mean Corpuscular Volume 88.1 FL 88.7 FL 87.1 FL Mean Corpuscular Hemoglobin 30.2 PG 30.0 PG 30.0 PG Mean Corpuscular Hemoglobin Concent 34.3 % 33.8 % 34.5 % Red Cell Distribution Width 15.7 % 15.9 % 15.5 % Platelet Count 154 TH/MM3 165 TH/MM3 168 TH/MM3 Mean Platelet Volume 8.5 FL 8.5 FL 8.6 FL Neutrophils (%) (Auto) 59.0 % 55.8 % 53.7 % Lymphocytes (%) (Auto) 22.1 % 25.8 % 28.1 % Monocytes (%) (Auto) 13.7 % 12.7 % 12.7 % Eosinophils (%) (Auto) 4.8 % 5.2 % 5.0 % Basophils (%) (Auto) 0.4 % 0.5 % 0.5 % Neutrophils # (Auto) 2.8 TH/MM3 2.2 TH/MM3 1.9 TH/MM3 Lymphocytes # (Auto) 1.0 TH/MM3 1.0 TH/MM3 1.0 TH/MM3 Monocytes # (Auto) 0.7 TH/MM3 0.5 TH/MM3 0.4 TH/MM3 Eosinophils # (Auto) 0.2 TH/MM3 0.2 TH/MM3 0.2 TH/MM3 Basophils # (Auto) 0.0 TH/MM3 0.0 TH/MM3 0.0 TH/MM3 CBC Comment DIFF FINAL DIFF FINAL DIFF FINAL Differential Comment Blood Urea Nitrogen 7 MG/DL 6 MG/DL 5 MG/DL Creatinine 0.56 MG/DL 0.56 MG/DL 0.53 MG/DL Random Glucose 116 MG/DL 105 MG/DL 106 MG/DL Total Protein 5.0 GM/DL 5.3 GM/DL 5.0 GM/DL Albumin 2.1 GM/DL 2.2 GM/DL 2.1 GM/DL Calcium Level 8.5 MG/DL 8.7 MG/DL 8.5 MG/DL Phosphorus Level 2.8 MG/DL 3.5 MG/DL 3.6 MG/DL Magnesium Level 1.7 MG/DL 1.8 MG/DL 1.6 MG/DL Alkaline Phosphatase 48 U/L 49 U/L 43 U/L Aspartate Amino Transf (AST/SGOT) 15 U/L 13 U/L 16 U/L Alanine Aminotransferase (ALT/SGPT) 14 U/L 13 U/L 13 U/L Total Bilirubin 0.8 MG/DL 0.6 MG/DL 0.5 MG/DL Sodium Level 142 MEQ/L 141 MEQ/L 143 MEQ/L Potassium Level 3.0 MEQ/L 3.6 MEQ/L 3.0 MEQ/L Chloride Level 108 MEQ/L 109 MEQ/L 111 MEQ/L Carbon Dioxide Level 24.7 MEQ/L 23.9 MEQ/L 23.1 MEQ/L Anion Gap 9 MEQ/L 8 MEQ/L 9 MEQ/L Estimat Glomerular Filtration Rate 104 ML/MIN 104 ML/MIN 111 ML/MIN Imaging Last Impressions Head Magnetic Resonance Angiography 11/07/17 0000 Signed Impressions: Service Date/Time: Tuesday, November 07, 2017 12:59 - CONCLUSION: There is evidence of some blood volume in the new enhancing nodule adjacent to the primary tumor. Los Navarro MD Brain MRI 11/07/17 0000 Signed Impressions: Service Date/Time: Tuesday, November 07, 2017 12:59 - CONCLUSION: The dominant mass in the right parietal lobe has decreased in size slightly, but there is evidence of recurrent tumor with enhancement along the biopsy tract and a new 7 mm enhancing nodule adjacent to the superior lateral margin of the residual mass. Decrease in the amount of surrounding edema when compared to May 2017. Los Navarro MD Head CT 11/06/171925 Signed Impressions: Service Date/Time: Monday, November 06, 2017 20:53 - CONCLUSION: 1. Prior right craniotomy with encephalomalacia in the operative bed and some punctate calcifications. No current mass effect or shift. There is no recent infarct identified. Jagdish Castillo MD Chest X-Ray 11/06/171925 Signed Impressions: Service Date/Time: Monday, November 06, 2017 19:39 - CONCLUSION: 1. Elevated right hemidiaphragm. Basilar atelectasis. Jagdish Castillo MD Objective Remarks GENERAL: More awake and alert than yesterday talkative and somewhat cooperative SKIN: Warm and dry. HEAD: Atraumatic. Normocephalic. EYES: Pupils equal and round. No scleral icterus. No injection or drainage. Extraocular muscles intact ENT: No nasal bleeding or discharge. Mucous membranes pink and moist. Tongue is midline supple NECK: Trachea midline. No JVD. CARDIOVASCULAR: Regular rate and rhythm. S1-S2 no S3 or S4 RESPIRATORY: No accessory muscle use. Clear to auscultation. Breath sounds equal bilaterally. GASTROINTESTINAL: Abdomen soft, non-tender, nondistended. Hepatic and splenic margins not palpable. MUSCULOSKELETAL: Extremities without clubbing, cyanosis, or edema. No obvious deformities. NEUROLOGICAL: Awake and alert. No obvious cranial nerve deficits. Motor grossly within normal limits. 4 out of 5 muscle strength in the arms and legs. Normal speech but very lethargic. PSYCHIATRIC: INAppropriate mood and affect; insight and judgment ABnormal. Procedures NONE Medications and IVs Current Medications Sodium Chloride 1,000 ml @ 100 mls/hr Q10H IV Last administered on 11/13/17at 06:46; Start 11/06/17 at 19:45 Potassium Chloride (KCl) 10 meq ONCE ONCE PO Last administered on 11/06/17at 21: 05; Start 11/06/17 at 21:00; Stop 11/06/17 at 21:01; Status DC Sodium Chloride (NS Flush) 2 ml UNSCH PRN IV FLUSH FLUSH AFTER USING IV ACCESS ; Start 11/06/17 at 23:30 Sodium Chloride (NS Flush) 2 ml BID IV FLUSH Last administered on 11/12/17at 19: 55; Start 11/07/17 at 09:00 Ondansetron HCl (Zofran Inj) 4 mg Q6H PRN IVP NAUSEA OR VOMITING; Start at 23:30 Heparin Sodium (Porcine) (Heparin Inj) 5,000 units Q8H SQ ; Start 11/06/17 at 23: 30; Stop 11/06/17 at 23:30; Status DC Naloxone HCl (Narcan Inj) 0.4 mg UNSCH PRN IV PUSH SEE LABEL COMMENTS; Start at 23:30 Senna/Docusate Sodium (Miranda-Colace) 1 tab BID PO Last administered on 11/12/17at 21:55; Start 11/07/17 at 09:00 Magnesium Hydroxide (Milk Of Magnesia Liq) 30 ml Q12H PRN PO Mild constipation ; Start 11/06/17 at 23:30 Sennosides (Senokot) 17.2 mg Q12H PRN PO Moderate constipation; Start 11/06/17 at 23:30 Bisacodyl (Dulcolax Supp) 10 mg DAILY PRN RECTAL SEVERE CONSITIPATION/ IF NPO ; Start 11/06/17 at 23:30 Lactulose (Lactulose Liq) 30 ml DAILY PRN PO SEVERE CONSITIPATION/ IF PO; Start 11/06/17 at 23:30 Morphine Sulfate (Morphine Inj) 4 mg Q3H PRN IV PUSH pain 6-10; Start 11/06/17 at 23:30 Bumetanide (Bumetanide) 2 mg DAILY PO Last administered on 11/08/17at 08:29; Start 11/07/17 at 09:00; Stop 11/08/17 at 09:20; Status DC Dabigatran (Pradaxa) 150 mg DAILY PO Last administered on 11/12/17at 09:01; Start 11/07/17 at 09:00 Levetriacetam (Keppra) 500 mg BID PO Last administered on 11/13/17 08:36; Start 11/07/17 at 09:00 Pantoprazole Sodium (Protonix) 40 mg DAILY PO Last administered on 11/13/17 08 :36; Start 11/07/17 at 09:00 Ceftriaxone Sodium 1000 mg/ Sodium Chloride 100 ml @ 200 mls/hr Q24H IV Last administered on 11/13/17at 04:52; Start 11/07/17 at 04:00 Potassium Chloride (KCl) 20 meq ONCE ONCE PO Last administered on 11/07/17 11: 29; Start 11/07/17 at 10:30; Stop 11/07/17 at 10:36; Status DC Gadodiamide (Omniscan Pf Inj) 20 ml STK-MED ONCE IVCONTRAST Last administered on 11/07/17 14:10; Start 11/07/17 at 14:10; Stop 11/07/17 at 14:11; Status DC Magnesium Sulfate/ Dextrose 100 ml @ 100 mls/hr ONCE ONCE IV Last administered on 11/08/17 08:29; Start 11/08/17 at 08:00; Stop 11/08/17 at 08:59; Status DC Potassium Chloride 100 ml @ 50 mls/hr Q2H IV Last administered on 11/08/17 12: 19; Start 11/08/17 at 09:00; Stop 11/08/17 at 12:59; Status DC Potassium Chloride (KCl) 60 meq ONCE ONCE PO Last administered on 11/08/17at 08: 30; Start 11/08/17 at 08:00; Stop 11/08/17 at 08:01; Status DC Potassium Chloride 100 ml @ 50 mls/hr Q2H IV Last administered on 11/09/17 23: 30; Start 11/09/17 at 13:00; Stop 11/09/17 at 22:59; Status DC Guaifenesin/ Codeine Phosphate (Robitussin Ac 200-20 Mg/10 ml Liq) 10 ml Q6H PRN PO COUGH; Start 11/09/17 at 11:45 Potassium Chloride 100 ml @ 50 mls/hr Q2H IV Last administered on 11/11/17at 20: 54; Start 11/11/17 at 11:00; Stop 11/11/17 at 20:59; Status DC Clonidine (Catapres) 0.1 mg Q4H PRN PO SBP>160, DBP>90; Start 11/11/17 at 14:00 Hydralazine HCl (Apresoline) 25 mg Q8HR PRN PO sbp >160; Start 11/11/17 at 14:00 A/P Assessment and Plan //Progressive weakness Likely secondary to chemotherapy received last Sunday Oncology consulted, Dr. Frank, appreciate recommendations CT of the head shows prior right craniotomy without current mass effect or shift PT recommends rehab. = MRI reviewed. Oncology following. Appreciate assistance. //Glioblastoma Continue Keppra for seizure prophylaxis Appreciate oncology input ANOTHER OCCURRENCE OF A GB //Left lower extremity DVT Continue home Pradaxa //Urinary tract infection UA consistent with urinary tract infection despite 10 squamous epithelial cells Urine culture pending Rocephin = 4/. Gram-negative irene. Follow-up sensitivities. //Hypokalemia. = /. =2.5. Replace. Stop Bumex. Continue to monitor-replace again We will replace Check a.m. labs Family to meet with hospice to get more information FEN Regular diet Ns at 100 cc/hr Electrolytes: Status post oral potassium repletion, monitor BMP Pradaxa WILL GO TO SNF HOPEFULLY TODAY REPLACE POTASSIUM Discharge Planning Pending improvement with possible SNF discharge Melvin Whitfield DO Nov 13, 2017 09:30
[2017-11-13] MEDS ORDERED: POTASSIUM CHLORIDE 25 MEQ EFFERVESCENT TAB PO ONE (09:45)
[2017-11-13] MEDS ORDERED: LEVE500T8 PO (10:26)
[2017-11-13] MEDS ORDERED: guaiFEN-COD 200-20 MG/10ML LIQ PO (10:26)
[2017-11-13] MEDS ORDERED: BUME2TAB PO (10:26)
[2017-11-13] MEDS ORDERED: POTA-163 PO (10:26)
[2017-11-13] MEDS ORDERED: VITA2000 PO (10:26)
[2017-11-13] MEDS ORDERED: ONDA8TAB7 PO (10:26)
[2017-11-13] MEDS ORDERED: SENN187 PO (10:26)
[2017-11-13] MEDS ORDERED: PERC5TAB12 PO (10:26)
[2017-11-13] MEDS ORDERED: CALC1TAB12 PO (10:26)
[2017-11-13] MEDS ORDERED: PROT40TA PO (10:26)
[2017-11-13] MEDS ORDERED: CEFT250S PO (10:36)
[2017-11-13] MEDS ORDERED: FLUC10S PO (10:37)
--- NOTE | 2017-11-13 10:39 | HHI.DS ---
Discharge Summary Admission Date Nov 10, 2017 at 13:41 Discharge Date: Nov 13, 2017 Admitting Diagnosis Generalized weakness, dehydration, h/o glioblastoma on chemotherapy (1) History of DVT (deep vein thrombosis) ICD Code: Z86.718 - Personal history of other venous thrombosis and embolism Diagnosis: Secondary (2) Osteoarthritis ICD Code: M19.90 - Unspecified osteoarthritis, unspecified site Diagnosis: Secondary Status: Chronic (3) Hypothyroidism ICD Code: E03.9 - Hypothyroidism, unspecified Diagnosis: Secondary Status: Chronic (4) Glioblastoma multiforme ICD Code: C71.9 - Malignant neoplasm of brain, unspecified Diagnosis: Principal (5) Weakness ICD Code: R53.1 - Weakness Diagnosis: Principal (6) Pain ICD Code: R52 - Pain, unspecified Diagnosis: Principal (7) Lethargy ICD Code: R53.83 - Other fatigue Diagnosis: Secondary (8) Fatigue ICD Code: R53.83 - Other fatigue (9) Urinary tract infection ICD Code: N39.0 - Urinary tract infection, site not specified Diagnosis: Principal Status: Chronic Procedures NONE Brief History - From Admission 77-year-old female with a past medical history significant for glioblastoma and left lower extremity DVT anticoagulated on Pradaxa was brought to the emergency department by her for evaluation of progressive weakness over the last 24 hours. The patient is interviewed alone and states that she feels fine now. She is able to answer my questions slowly however cannot tell me exactly why she came to the emergency department. Per emergency room documentation, the patient's stated that she had a second round of double dose chemotherapy for her glioblastoma on Sunday. He reports that over the last week she has had a diminished appetite. Denies any vomiting or diarrhea. No chest pain or shortness of breath. No abdominal pain. Increasing weakness without lateralizing signs/symptoms. CBC/BMP: 11/13/17 0631 11/13/17 0631 Significant Findings Laboratory Tests Test 11/11/17 05:11 11/12/17 07:25 11/12/17 07:35 11/13/17 06:31 Red Blood Count 3.97 MIL/MM3 (4.00-5.30) 3.92 MIL/MM3 (4.00-5.30) Monocytes (%) (Auto) 13.7 % (0.0-8.0) 12.7 % (0.0-8.0) 12.7 % (0.0-8.0) Eosinophils (%) (Auto) 4.8 % (0.0-4.0) 5.2 % (0.0-4.0) 5.0 % (0.0-4.0) Random Glucose 116 MG/DL (74-106) Total Protein 5.0 GM/DL (6.4-8.2) 5.3 GM/DL (6.4-8.2) 5.0 GM/DL (6.4-8.2) Albumin 2.1 GM/DL (3.4-5.0) 2.2 GM/DL (3.4-5.0) 2.1 GM/DL (3.4-5.0) Potassium Level 3.0 MEQ/L (3.5-5.1) 3.0 MEQ/L (3.5-5.1) Chloride Level 108 MEQ/L (98-107) 109 MEQ/L (98-107) 111 MEQ/L (98-107) Blood Urea Nitrogen 6 MG/DL (7-18) 5 MG/DL (7-18) Aspartate Amino Transf (AST/SGOT) 13 U/L (15-37) White Blood Count 3.5 TH/MM3 (4.0-11.0) Hematocrit 34.1 % (35.0-46.0) Alkaline Phosphatase 43 U/L (45-117) Imaging Last Impressions Head Magnetic Resonance Angiography 11/07/17 Signed Impressions: Service Date/Time: Tuesday, November 07, 2017 12:59 - CONCLUSION: There is evidence of some blood volume in the new enhancing nodule adjacent to the primary tumor. Los Navarro MD Brain MRI 11/07/17 Signed Impressions: Service Date/Time: Tuesday, November 07, 2017 12:59 - CONCLUSION: The dominant mass in the right parietal lobe has decreased in size slightly, but there is evidence of recurrent tumor with enhancement along the biopsy tract and a new 7 mm enhancing nodule adjacent to the superior lateral margin of the residual mass. Decrease in the amount of surrounding edema when compared to May 2017. Los Navarro MD Head CT 11/06/171925 Signed Impressions: Service Date/Time: Monday, November 06, 2017 20:53 - CONCLUSION: 1. Prior right craniotomy with encephalomalacia in the operative bed and some punctate calcifications. No current mass effect or shift. There is no recent infarct identified. Jagdish Castillo MD Chest X-Ray 11/06/171925 Signed Impressions: Service Date/Time: Monday, November 06, 2017 19:39 - CONCLUSION: 1. Elevated right hemidiaphragm. Basilar atelectasis. Jagdish Castillo MD PE at Discharge GENERAL: More awake and alert than yesterday talkative and somewhat cooperative SKIN: Warm and dry. HEAD: Atraumatic. Normocephalic. EYES: Pupils equal and round. No scleral icterus. No injection or drainage. Extraocular muscles intact ENT: No nasal bleeding or discharge. Mucous membranes pink and moist. Tongue is midline supple NECK: Trachea midline. No JVD. CARDIOVASCULAR: Regular rate and rhythm. S1-S2 no S3 or S4 RESPIRATORY: No accessory muscle use. Clear to auscultation. Breath sounds equal bilaterally. GASTROINTESTINAL: Abdomen soft, non-tender, nondistended. Hepatic and splenic margins not palpable. MUSCULOSKELETAL: Extremities without clubbing, cyanosis, or edema. No obvious deformities. NEUROLOGICAL: Awake and alert. No obvious cranial nerve deficits. Motor grossly within normal limits. 4 out of 5 muscle strength in the arms and legs. Normal speech but very lethargic. PSYCHIATRIC: INAppropriate mood and affect; insight and judgment ABnormal. Hospital Course 77-year-old female with a past medical history significant for glioblastoma and left lower extremity DVT anticoagulated on Pradaxa was brought to the emergency department by her for evaluation of progressive weakness over the last 24 hours. The patient is interviewed alone and states that she feels fine now. She is able to answer my questions slowly however cannot tell me exactly why she came to the emergency department. Per emergency room documentation, the patient's stated that she had a second round of double dose chemotherapy for her glioblastoma on Sunday. He reports that over the last week she has had a diminished appetite. Denies any vomiting or diarrhea. No chest pain or shortness of breath. No abdominal pain. Increasing weakness without lateralizing signs/symptoms. 4-5 Patient says she is feeling all right this morning. Denies any pain. 4-6 I discussed with her and case management and RN and oncology patient has been seen by palliative care Very lethargic today May need SNF with hospice I do not believe hospice is seen her yet today Continue current antibiotic treatment 4-7 more alert today much more talkative today dw RN AND PT AND AND CASE MANGEMENT AM LABS 4-8 much more alert today eating breakfast discussed with and patient and RN and case management Wants to go to [facility] at discharge with hospice involvement Place potassium A.m. labs 4-9 MUCH MORE ALERT TODAY EATING BREAKFAST WANTS [facility] AT DC AM LABS DC TOMORROW TO SNF?? DW RN AND PT AND CM 4-10 WANTS TO GO TO SNF TODAY DW RN AND PT AND CM AND SEE 3008 DC TO SNF TODAY [facility] SWITCH TO CEFTIN LIQUID AND DIFLUCAN LIQUID Pt Condition on Discharge: Fair Discharge Disposition: Discharge to SNF Discharge Time: > 30 minutes Discharge Instructions DIET: Follow Instructions for: As Tolerated, No Restrictions, Heart Healthy Diet Speech Therapy-Diet Recommends: Soft Activities you can perform: Regular-No Restrictions, Weight Bearing as Phong Follow up Referrals: Oncology/Hematology - 2 Weeks with Osvaldo Frank MD PCP Follow-up - 2-3 Days New Medications: Cefuroxime Liq (Ceftin Liq) 250 Mg/5 Ml Susp 250 MG PO BID for Infection for 7 Days, #70 ML 0 Refills Fluconazole Liq (Diflucan Liq) 10 Mg/Ml Susp 100 MG PO DAILY for Infection for 10 Days, #100 ML 0 Refills Oxycodone-Acetaminophen (Percocet) 5-325 mg Tab 1 TAB PO Q6H PRN for PAIN, #30 TAB 0 Refills Sennosides (Senna-Lax) 8.6 Mg Tab 17.2 MG PO Q12H PRN for Moderate constipation, #60 TAB [guaiFEN-COD 200-20 MG/10ML LIQ] () 10 ML SYRP 10 ML PO Q6H PRN for COUGH, #1200 ML Changed Medications: Potassium Chloride ER (Potassium Chloride ER) 20 Meq Tab 40 MEQ PO BID for Electrolyte Replacement, #60 TAB 0 Refills (Changed from: 20 MEQ) Continued Medications: Bumetanide (Bumetanide) 2 Mg Tab 2 MG PO DAILY for Blood Pressure Management, #30 TAB 0 Refills (This prescription has been renewed) Calcium Carbonate-Cholecalciferol (Calcium 500 +D) 500-400 Mg-Unit Tab 1 TAB PO TID for Calcium Supplement, #180 TAB 0 Refills (This prescription has been renewed) Cholecalciferol (Vitamin D3) 2,000 Unit Cap 2000 UNITS PO DAILY for Nutritional Supplement, #90 CAP 0 Refills (This prescription has been renewed) Levetiracetam (Levetiracetam) 500 Mg Tab 500 MG PO BID for Control Seizures, #60 TAB 0 Refills (This prescription has been renewed) Ondansetron (Ondansetron) 8 Mg Tab 8 MG PO Q8HR PRN for NAUSEA OR VOMITING, #30 TAB 1 Refill (This prescription has been renewed) Pantoprazole (Protonix) 40 Mg Tab 40 MG PO DAILY for Ulcer Prevention, #30 TAB 0 Refills (This prescription has been renewed) Temozolomide (Temozolomide) 140 Mg Cap 280 MG PO [id number] for Chemotherapy Management, CAP 0 Refills Discontinued Medications: Dabigatran (Pradaxa) 150 Mg Cap 150 MG PO DAILY for Blood Clot Prevention, #60 CAP 0 Refills Additional Information HOSPICE TO FOLLOW AT [facility] Melvin Whitfield DO Nov 13, 2017 10:39
--- NOTE | 2017-11-13 16:26 | PD.ONC.PN ---
Subjective Subjective Remarks Late entry. Saw pt in the morning. She is comfortable. Denies headache or visual changes. Still weak. at the bedside. Objective Data Date Time Temp Pulse Resp B/P (MAP) Pulse Ox O2 Delivery O2 Flow Rate FiO2 11/13/17 10:00 94 11/13/17 09:00 86 11/13/17 08:22 99.0 81 18 152/71 (98) 96 11/13/17 07:23 69 11/13/17 06:02 64 11/13/17 05:05 61 11/13/17 04:50 98.6 71 16 143/81 (101) 98 11/13/17 04:01 71 11/13/17 03:01 71 11/13/17 02:08 76 11/13/17 01:07 98.0 70 16 145/73 (97) 96 11/13/17 01:05 83 11/13/17 00:03 70 11/12/17 23:05 80 11/12/17 22:00 85 11/12/17 21:05 86 11/12/17 20:07 86 11/12/17 19:41 99.3 83 18 122/72 (89) 94 11/12/17 19:03 82 11/13/17 11/13/17 11/13/17 07:00 15:00 23:00 Intake Total 1220 ml Output Total 950 ml Balance 270 ml Result Diagram: 11/13/1763011/13/17630 Laboratory Results Laboratory Tests Test 11/13/17 06:31 White Blood Count 3.5 TH/MM3 Red Blood Count 3.92 MIL/MM3 Hemoglobin 11.8 GM/DL Hematocrit 34.1 % Mean Corpuscular Volume 87.1 FL Mean Corpuscular Hemoglobin 30.0 PG Mean Corpuscular Hemoglobin Concent 34.5 % Red Cell Distribution Width 15.5 % Platelet Count 168 TH/MM3 Mean Platelet Volume 8.6 FL Neutrophils (%) (Auto) 53.7 % Lymphocytes (%) (Auto) 28.1 % Monocytes (%) (Auto) 12.7 % Eosinophils (%) (Auto) 5.0 % Basophils (%) (Auto) 0.5 % Neutrophils # (Auto) 1.9 TH/MM3 Lymphocytes # (Auto) 1.0 TH/MM3 Monocytes # (Auto) 0.4 TH/MM3 Eosinophils # (Auto) 0.2 TH/MM3 Basophils # (Auto) 0.0 TH/MM3 CBC Comment DIFF FINAL Differential Comment Blood Urea Nitrogen 5 MG/DL Creatinine 0.53 MG/DL Random Glucose 106 MG/DL Total Protein 5.0 GM/DL Albumin 2.1 GM/DL Calcium Level 8.5 MG/DL Phosphorus Level 3.6 MG/DL Magnesium Level 1.6 MG/DL Alkaline Phosphatase 43 U/L Aspartate Amino Transf (AST/SGOT) 16 U/L Alanine Aminotransferase (ALT/SGPT) 13 U/L Total Bilirubin 0.5 MG/DL Sodium Level 143 MEQ/L Potassium Level 3.0 MEQ/L Chloride Level 111 MEQ/L Carbon Dioxide Level 23.1 MEQ/L Anion Gap 9 MEQ/L Estimat Glomerular Filtration Rate 111 ML/MIN Objective Remarks GENERAL: Well-nourished, well-developed patient. Weak SKIN: Warm and dry. HEAD: Normocephalic. EYES: No scleral icterus. No injection or drainage. NECK: Supple, trachea midline. No JVD or lymphadenopathy. LYMPHATIC: No adenopathy. CARDIOVASCULAR: Regular rate and rhythm without murmurs. RESPIRATORY: Breath sounds equal bilaterally. No accessory muscle use. GASTROINTESTINAL: Abdomen soft, non-tender, nondistended. EXTREMITIES: No cyanosis, or edema. MUSCULOSKELETAL: Adequate muscle tone. NEUROLOGICAL: No obvious focal deficit. Awake, alert, and oriented to self Assessment/Plan Problem List: (1) Glioblastoma multiforme ICD Codes: C71.9 - Malignant neoplasm of brain, unspecified Plan: --MRI with perfusion showed new enhancing nodule next to the main mass c/ w progression of disease. Edema has decreased. Prognosis is poor. Patient and family have decided to have hospice support. Discussed with again today and his questions answered. --was diagnosed with a glioblastoma in May. had a right craniotomy with resection of about 80% of the tumor. (2) History of DVT (deep vein thrombosis) ICD Codes: Z86.718 - Personal history of other venous thrombosis and embolism Plan: --on Pradaxa. Discussed with her and he agrees to stop the pradaxa. (3) Urinary tract infection ICD Codes: N39.0 - Urinary tract infection, site not specified Status: Chronic Plan: --Cx + enterobacter. --on Rocephin Assessment 77y/o female with glioblastoma, admitted with increased weakness. h.o Glioblastoma multiforme. Left lower extremity deep venous thrombosis. Hypothyroidism Osteoarthritis. Plan 1. Await hospice placement. 2. continue supportive care. 3. Discussed with pt's at the bedside. Osvaldo Frank MD Nov 13, 2017 16:26
== END 2017-11-13 16:14 | DRG 54 ==
LOC: NEPC 18:12 → NEDA 21:59 → NEPFCDU 23:53 → HCIN 11-08 18:45 → OBSVTOIN 11-10 13:41
PROVIDERS: ADMIT Hospitalist; ATTEND Hospitalist
DX: C71.1 Malignant neoplasm of frontal lobe (principal); G93.6 Cerebral edema; I82.402 Acute embolism and thrombosis of unspecified deep veins of left lower extremity; G93.89 Other specified disorders of brain; N39.0 Urinary tract infection, site not specified; J98.11 Atelectasis; E88.09 Other disorders of plasma-protein metabolism, not elsewhere classified; E86.0 Dehydration; R29.6 Repeated falls; T45.1X5A Adverse effect of antineoplastic and immunosuppressive drugs, initial encounter; E87.6 Hypokalemia; M48.00 Spinal stenosis, site unspecified; M19.90 Unspecified osteoarthritis, unspecified site; E04.2 Nontoxic multinodular goiter; Z51.5 Encounter for palliative care; Z66 Do not resuscitate; Z79.01 Long term (current) use of anticoagulants; Z86.718 Personal history of other venous thrombosis and embolism; Z88.6 Allergy status to analgesic agent; Z88.5 Allergy status to narcotic agent; Z88.8 Allergy status to other drugs, medicaments and biological substances; Z91.011 Allergy to milk products; Z91.012 Allergy to eggs; Z91.018 Allergy to other foods; Z92.3 Personal history of irradiation
CPT/HCPCS: 70450; 70552; 70553; 71045; 80048; 80053; 80069; 80076; 81001; 82140; 82247; 82248; 83036; 83690; 83735; 84100; 84132; 84439; 84443; 84484; 85025; 85610; 85730; 87077; 87086; 87186; 93005; 96361; 96365; 96366; A9579; G0378; G8987-GP; G8988-GP; J0696; J3475; J3480; J7030